=== PATIENT | female | born 1970 | race Caucasian/White ===

== ENCOUNTER 2022-03-31 19:17 | Emergency (ER) | payer OTHER, SELFPAY ==
[2022-03-31 19:20] VITALS: BP 154/91; PULSE 98; RESP 20; O2SAT 94; BMI 31.1
[2022-03-31 19:25] VITALS: BP 131/88; PULSE 91; RESP 22; TEMP 36.3; O2SAT 97
--- NOTE | 2022-03-31 20:03 | CTR_ITS ---
PROCEDURE INFORMATION: Exam: CT Head Without Contrast Exam date and time: 03/31/2022 8:33 PM Age: 52 years old Clinical indication: Injury or trauma; Fall; Blunt trauma (contusions or hematomas); Additional info: Fall hit head TECHNIQUE: Imaging protocol: Computed tomography of the head without contrast. Radiation optimization: All CT scans at this facility use at least one of these dose optimization techniques: automated exposure control; mA and/or kV adjustment per patient size (includes targeted exams where dose is matched to clinical indication); or iterative reconstruction. COMPARISON: MRI Cervical Spine w/o* [id number] 09/14/2015 12:56 PM RADIATION DOSE METRICS: Total DLP (mGy-cm): 913053 FINDINGS: Brain: Normal. No hemorrhage. Unremarkable white matter. No mass effect. Cerebral ventricles: No ventriculomegaly. Paranasal sinuses: A mucous retention cyst versus polyp in the right frontal sinus. Mastoid air cells: Visualized mastoid air cells are well aerated. Bones/joints: Unremarkable. No acute fracture. Soft tissues: Unremarkable. CT/CT head wo con* [id number] IMPRESSION: No acute intracranial findings.
--- NOTE | 2022-03-31 20:03 | CTR_ITS ---
PROCEDURE INFORMATION: Exam: CT Cervical Spine Without Contrast Exam date and time: 03/31/2022 8:39 PM Age: 52 years old Clinical indication: Injury or trauma; Fall; Blunt trauma; Additional info: Fell hit head TECHNIQUE: Imaging protocol: Computed tomography of the cervical spine without contrast. Radiation optimization: All CT scans at this facility use at least one of these dose optimization techniques: automated exposure control; mA and/or kV adjustment per patient size (includes targeted exams where dose is matched to clinical indication); or iterative reconstruction. COMPARISON: MRI Cervical Spine w/o* [id number] 09/14/2015 12:56 PM RADIATION DOSE METRICS: Total DLP (mGy-cm): 338.57 FINDINGS: Bones/joints: No acute fracture. Normal alignment. Discs/Spinal canal/Neural foramina: There are degenerative changes throughout the visualized spine including marginal osteophyte formations, endplate degenerative changes, and facet arthropathy. Multilevel disc space narrowing. There are multilevel broad-based disc osteophyte complexes which indent the anterior thecal sac and result in varying degrees of bilateral neuroforamina narrowing. Lungs: Lung apices are normal. Soft tissues: There are benign-appearing soft tissue calcifications. CT/CT cervical spin wo con* [id number] IMPRESSION: There are degenerative changes as described above. No evidence for acute fracture.
--- NOTE | 2022-03-31 20:34 | ED_ITS ---
HPI - Fall General: Chief Complaint: Fall Stated Complaint: FALL Time Seen by Provider: 03/31/22 19:28 Source: patient History of Present Illness: 52-year-old female who admits she is intoxicated, having about 12 beers today. She fell down some stairs at home, striking her head quite hard on a rock stairs family notes that after she did it, her eyes rolled back in her head, and she seemed to go out for a second although the patient denies any significant loss of consciousness. She does complain of a headache now. No language problems, weakness, vision problems MD complaint: fall Onset (ago): hour(s) Fall from: standing Fall witnessed: yes, by family Place fall occurred: home Loss of consciousness: None Prolonged down time: no Context: tripped/slipped and alcohol use Location of injury: head Severity: moderate Quality: dull Associated symptoms-after fall: Reports difficulty walking (Initially) and neck pain (Chronic); Denies abdominal pain, chest pain, numbness, short of breath or weakness Review of Systems Const: Denies: fever(s) Eyes: Denies: change in vision Card: Denies: chest pain Resp: Denies: dyspnea GI: Denies: abdominal pain Musc: Reports: neck pain (Chronic) Neuro: Reports: difficulty walking (Initially) Physical Exam Const: COMMON NORMALS: no acute distress GENERAL APPEARANCE: cooperative and well kempt; not frail appearing HENMT: COMMON NORMALS: normocephalic, atraumatic and Normal external nose present HEAD & SCALP: normocephalic and atraumatic FACE & SINUS: normal facial exam and face symmetric NOSE: Normal external nose present Eye: COMMON NORMALS: Equal, round and reactive pupils present and EOMs intact bilaterally PUPIL: Yes Equal, round and reactive pupils present Neck/C-Spine: GENERAL: Yes trachea midline CERVICAL SPINE: No Cervical spine tenderness Chest: CHEST: Yes Symmetrical chest wall rise and No tenderness Resp: COMMON NORMALS: normal respiratory effort, No use of accessory muscles and clear to auscultation bilaterally AUSCULTATION: clear to auscultation bilaterally Cardio: COMMON NORMALS: regular rate and regular rhythm RATE: regular rate RHYTHM: regular rhythm GI: COMMON NORMALS: Normal to inspection, nondistended, normoactive bowel sounds present, Soft to palpation and non-tender PALPATION: Yes Soft to palpation Neuro: DARRON COMA SCALE: document GCS findings [place] coma scale eye opening: Spontaneous Darron coma scale verbal response: Orientated [place] coma scale motor response: Obey commands [place] coma scale total score: 15 COORDINATION/BALANCE: [id number] test normal MOTOR EXAM: Pronator motor function not present COORDINATION: [id number] test normal Psych: APPEARANCE: Yes well kempt Course Vital Signs: Vital signs: Vital Signs Temperature 97.4 F L 03/31/22 19:25 Pulse Rate 85 03/31/22 21:54 Respiratory Rate 16 03/31/22 21:54 Blood Pressure 120/88 03/31/22 21:54 Pulse Oximetry 99 03/31/22 21:54 MDM - Fall Medical Decision Making CT performed due to intoxication. They are pending. I do not expect serious injury. CTs are negative. No change in clinical status. She will be discharged Lab Data Radiology Impressions Cervical Spine CT 03/31/22 20:03 IMPRESSION: There are degenerative changes as described above. No evidence for acute fracture. Head CT 03/31/22 20:03 IMPRESSION: No acute intracranial findings. Discharge Plan Discharge Patient Disposition: Home Clinical Impression: Concussion without loss of consciousness Condition: Stable Discharge Orders: Discharge ED (Routine); Ordered 03/31/22 Ordered By: Tad Alvarez Discharge Diet: Advance as tolerated Discharge Activity: Increase activity as tolerated Patient Instructions: Concussion (ED) Activity Restrictions/Additional Instructions: Return for worsening mental status, vomiting, weakness, worsening headache, any other concerning symptoms. Coding Level of Care Code ED Commissioning Engineer for Regino Ta Exam Comprehensive
[2022-03-31 21:25] VITALS: BP 120/88; PULSE 85; RESP 16; O2SAT 99
[2022-03-31 21:54] VITALS: BP 120/88; PULSE 85; RESP 16; O2SAT 99
== END 2022-03-31 21:54 | disposition home or self-care (01) ==
PROVIDERS: Emergency Provider Emergency Medicine
DX: S06.0X0A Concussion without loss of consciousness, initial encounter (principal); W18.09XA Striking against other object with subsequent fall, initial encounter; Y92.018 Other place in single-family (private) house as the place of occurrence of the external cause
CPT/HCPCS: 70450; 72125; 99283

== ENCOUNTER 2023-01-21 07:38 | Outpatient (CLI) | payer OTHER, SELFPAY ==
--- NOTE | 2023-01-21 07:48 | MM_ITS ---
WS: [id number] BILATERAL SCREENING DIGITAL TOMOSYNTHESIS MAMMOGRAM WITH CAD HISTORY: Breast CA screening COMPARISON: 11/07/2016 Bilateral CC and MLO views with tomosynthesis and synthetic mammography submitted. Computer aided det ection analyzed. Breast composition: There are scattered areas of fibroglandular density. No suspicious masses, microc alcifications or architectural distortion. Stable lymph node upper outer quadrant RIGHT breast. MM/[place] [id number] IMPRESSION: BI-RADS: 2-Benign FOLLOW UP: 1 Year Follow-up
== END 2023-01-21 07:39 | disposition home or self-care (01) ==
PROVIDERS: PCP Family Medicine; Visit Provider Family Medicine
DX: Z12.31 Encounter for screening mammogram for malignant neoplasm of breast (principal)
CPT/HCPCS: 77063; 77067; 80053; 80061; 84443; 85025

== ENCOUNTER 2023-01-31 14:20 | Emergency (ER) | payer OTHER, SELFPAY ==
--- NOTE | 2023-01-31 14:34 | ECG_ITS ---
[facility] Test Date: 2023-01-31 Pat Name: Evy Shaw Department: Room: Gender: Female Registrar Assistant: : 1970 Requested By: Kamaljit Monge Order Number: [id number] Richi MD: Emiliano Rocha M.D. Measurements Intervals [place] Rate: 101 P: 122 NV: 135 QRS: 37 QRSD: 92 T: 135 QT: 346 QTc: 448 Interpretive Statements SINUS TACHYCARDIA POSSIBLE LEFT ATRIAL ENLARGEMENT [-0.1mV P-WAVE IN V1/V2] LOW QRS VOLTAGE [QRS DEFLECTION < 0.5/1.0 mV IN LIMB/CHEST LEADS] MODERATE ST DEPRESSION [0.05+ mV ST DEPRESSION] ABNORMAL QRS-T ANGLE [QRS-T AXIS DIFFERENCE > 60] No previous ECG available for comparison Electronically Signed On 02-01-2023 11:59:29 CDT by Emiliano Rocha M.D. [id number]
[2023-01-31 14:49] VITALS: BP 150/82; PULSE 104; RESP 18; TEMP 36.8; O2SAT 99
--- NOTE | 2023-01-31 15:12 | XR_ITS ---
WS: [id number] Portable AP upright chest, 01/31/2023 Clinical Data: chest pain Comparison: None. Findings: No nodules, masses or effusions are seen. The heart is normal. The pulmonary vascularity is not increased. No pneumonia or pneumothorax is seen. Monitor leads are on the chest wall. XR/XR chest 1V portable [id number] Impression: Negative chest.
--- NOTE | 2023-01-31 15:16 | W.ED.CHESTPA ---
Documented by User: Kamaljit Coleman DO 01/31/23 19:46 HPI - Chest Pain General: Chief Complaint: Chest Pain Stated Complaint: chest pain Time Seen by Provider: 01/31/23 15:12 Source: patient Mode of arrival: ambulatory History of Present Illness: 52-year-old female presents emergency room complaining of chest pain that began while she was at rest. She has never had pain like this in the past. She has no known history of coronary disease pain radiates into her back and not associated with shortness of breath or diaphoresis. No radiation into the neck or arms. No nausea or vomiting. Patient does have a history of hypertension she is not diabetic. No previous cardiac work-ups. MD complaint: chest pain Pertinent past history: coronary artery disease Onset (ago): minute(s) Timing of current episode: episodic Onset: during rest Pain location: substernal and left chest Pain radiation: none Severity: mild Quality: tightness Relieving factors: nothing Exacerbating factors: nothing Associated symptoms: Deny abdominal pain, dyspnea, fever(s), nausea, palpitations or vomiting Review of Systems Const: Denies: fever(s), chills, body aches, change in appetite, fatigue or malaise ENMT: Denies: throat pain, ear or mastoid pain, nasal discharge or nasal congestion Card: Denies: chest pain, palpitations, edema, dyspnea on exertion or orthopnea Resp: Denies: dyspnea, productive cough or non-productive cough GI: Denies: abdominal pain, nausea, vomiting, hematemesis, coffee ground emesis, diarrhea, constipation, bloating, hematochezia or melena : Denies: flank pain, difficulty voiding, dysuria, urinary frequency or urinary urgency Musc: Denies: neck pain, back pain, extremity pain or extremity swelling Skin/Breast: Denies: rash or pruritus PFSH ED PFSH: Medical History (Updated 01/31/23 @ 19:24 by lAfred Arroyo MD) Hypertension Family History Father Congestive heart failure Mother Diabetes Hypertension Cancer Breast Social History Smoking and tobacco status: current every day smoker cigarettes Second hand smoke exposure: No Smoking risk assessment/counseling performed?: No Alcohol intake: current Alcohol intake frequency: few times a week Desire information about alcohol rehabilitation?: No Counseling given: No Substance/Drug Use: never Desire information about substance/drug rehabilitation?: No Counseling given: No Adopted: No Lives independently: Yes Household members: spouse Marital status: Number of children: 4 Number of grandchildren: 3 service: Yes Current occupational status: employed 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 Current occupational exposures/hazards: No Pets and animals: No Sexually active: Yes Do you think of yourself as: Straight/Heterosexual Current gender identity: Female Female Reproductive History: Spontaneous abortions: No Physical Exam Const: GENERAL APPEARANCE: cooperative and comfortable ORIENTATION/CONSCIOUSNESS: Yes awake, Yes oriented to person, Yes oriented to place and Yes oriented to time HENMT: COMMON NORMALS: normocephalic, atraumatic and hearing grossly normal bilaterally HEAD & SCALP: normocephalic and atraumatic Resp: COMMON NORMALS: normal respiratory effort, No retractions, No use of accessory muscles and clear to auscultation bilaterally AUSCULTATION: clear to auscultation bilaterally Cardio: COMMON NORMALS: regular rate, regular rhythm and No murmurs present (Cardio) RATE: regular rate RHYTHM: regular rhythm GI: COMMON NORMALS: Soft to palpation and No hepatosplenomegaly present AUSCULTATION: Yes normoactive bowel sounds PALPATION: Yes Soft to palpation, No Tenderness to palpation present (GI), No Guarding due to palpation present (GI) and Yes No hepatosplenomegaly present Extremity: COMMON NORMALS: normal to inspection, capillary refill normal, no clubbing, cyanosis or edema, no calf tenderness and no pedal edema Neuro: SENSORIUM/ORIENTATION: Yes oriented to person, Yes oriented to place and Yes oriented to time Skin: COMMON NORMALS: no rashes or lesions noted GENERAL SKIN EXAM: no rashes or lesions noted Course Vital Signs: Vital signs: Vital Signs Temperature 98.2 F 01/31/23 14:49 Pulse Rate 69 01/31/23 19:36 Respiratory Rate 18 01/31/23 19:36 Blood Pressure 121/60 01/31/23 17:43 Pulse Oximetry 96 01/31/23 19:36 Oxygen Delivery Me thod Room Air 01/31/23 18:22 MDM - Chest Pain Medical Decision Making Headache enzymes and EKG are negative. Reviewed findings the patient still complaining of severe pain. She describes as coming waves and spasms a CTA of the chest was done this was also negative. Patient discharged home. Was near change of shift Dr. Arroyo discharge patient home forming. See his final notes. Medical Records I reviewed the patient's medical records. Lab Data I reviewed the patient's lab results. 01/31/23 15:10 01/31/23 15:10 Radiology Impressions Chest X-Ray 01/31/23 15:12 Impression: Negative chest. Chest CTA 01/31/23 17:49 IMPRESSION: No PE or other acute finding. Laboratory Results WBC 8.8 10^3/uL (4.0-10.0) 01/31/23 15:10 RBC 4.37 10^6/uL (4.1-5.3) 01/31/23 15:10 Hgb 12.3 g/dL (11.5-15.3) 01/31/23 15:10 Hct 39.0 % (37.0-47.0) 01/31/23 15:10 MCV 89.2 fl (81-99) 01/31/23 15:10 MCH 28.1 pg (28.0-34.0) 01/31/23 15:10 MCHC 31.5 g/dL (30.0-36.0) 01/31/23 15:10 RDW 12.2 % (12.1-15.1) 01/31/23 15:10 Plt Count 303 10^3/cmm (130-400) 01/31/23 15:10 MPV 10.1 fL (7.4-10.4) 01/31/23 15:10 Neut % (Auto) 49.3 % 01/31/23 15:10 Lymph % (Auto) 42.3 % 01/31/23 15:10 Hooker % (Auto) 6.7 % 01/31/23 15:10 Eos % (Auto) 0.8 % 01/31/23 15:10 Baso % (Auto) 0.7 % 01/31/23 15:10 Neut # (Auto) 4.35 10^3/uL (1.8-7.7) 01/31/23 15:10 Lymph # (Auto) 3.7 10^3/uL (0.8-4.8) 01/31/23 15:10 [place] # (Auto) 0.6 10^3/uL (0.2-0.9) 01/31/23 15:10 Eos # (Auto) 0.1 10^3/uL (0.0-0.8) 01/31/23 15:10 Baso # (Auto) 0.1 10^3/uL (0.0-0.1) 01/31/23 15:10 Nucleated RBC % (auto) 0 % 01/31/23 15:10 Nucleated RBCs # 0.0 /100WBC 01/31/23 15:10 Sodium 138 mmol/L (136-145) 01/31/23 15:10 Potassium 3.5 mmol/L (3.5-5.1) 01/31/23 15:10 Chloride 97 mmol/L (98-107) L 01/31/23 15:10 Carbon Dioxide 23 mmol/L (22-29) 01/31/23 15:10 Anion Gap 21.5 (5-19) H 01/31/23 15:10 BUN 10 mg/dL (6-20) 01/31/23 15:10 Creatinine 0.9 mg/dL (0.5-0.9) 01/31/23 15:10 GFR Calculation 65.2 mL/min (90-130) L 01/31/23 15:10 Glucose 95 mg/dL (65-115) 01/31/23 15:10 Calculated Osmolality 285 mOsm/kg (285-295) 01/31/23 15:10 Calcium 9.7 mg/dL (8.5-10.5) 01/31/23 15:10 Total Bilirubin 0.3 mg/dL (0.15-1.2) 01/31/23 15:10 AST 19 U/L (0-32) 01/31/23 15:10 ALT 21 U/L (0-33) 01/31/23 15:10 Alkaline Phosphatase 94 U/L (35-105) 01/31/23 15:10 Creatine Kinase 74 U/L (26-192) 01/31/23 15:10 Troponin T Baseline 6 ng/L (0-10) 01/31/23 15:10 Troponin T 120 Minute 6.00 ng/L (0-10) 01/31/23 17:10 Delta Troponin T 0 ABS# (0-10) 01/31/23 17:10 Total Protein 7.4 g/dL (6.6-8.7) 01/31/23 15:10 Albumin 4.7 g/dL (3.5-5.2) 01/31/23 15:10 Globulin 2.7 g/dL (1.3-4.6) 01/31/23 15:10 Discharge Plan Discharge Patient Disposition: Home Clinical Impression: Chest pain Condition: Stable Prescriptions: No Action citalopram [Celexa] 40 mg tablet 40 mg PO QAM metoprolol tartrate 50 mg tablet 50 mg PO BID pantoprazole [Protonix] 40 mg tablet,delayed release (DR/EC) 40 mg PO QAM enalapril maleate 20 mg tablet 20 mg PO QAM nortriptyline 75 mg capsule 75 mg PO BID aspirin [Adult Low Dose Aspirin] 81 mg tablet,delayed release (DR/EC) 81 mg PO BEDTIME carisoprodol [Soma] 350 mg tablet 350 mg PO TID PRN (Reason: Muscle Spasm) promethazine 25 mg tablet 25 mg PO Q6H PRN (Reason: Nausea And Vomiting) hydroxyzine pamoate [Vistaril] 25 mg capsule 25 mg PO Q12H PRN (Reason: UNKNOWN) sucralfate [Carafate] 1 gram tablet 1 g PO TID PRN (Reason: UNKNOWN) hydrocodone-acetaminophen 10-325 mg tablet 1 tab PO DAILY PRN (Reason: pain) 30 Days Qty: 20 0RF clonazepam 1 mg tablet 1 mg PO BID PRN (Reason: Anxiety) flaxseed oil 1,000 mg Capsule 1,000 mg PO BEDTIME Calcium 500 500 mg calcium (1,250 mg) Tablet 500 mg PO BEDTIME albuterol sulfate 90 mcg/actuation Hfa Aerosol Inhaler 2 puff INHALATION QID PRN (Reason: Shortness Of Breath) Vitamin D3 25 mcg (1,000 unit) Capsule 25 mcg PO BEDTIME Nelson 3 Fish Oil 684-1,200 mg Capsule,Delayed Release(Dr/Ec) 1 cap PO BEDTIME Discharge Orders: Discharge ED (Routine); Ordered 01/31/23 Ordered By: Alfred Arroyo Referrals: Santiago Holman DO [Primary Care Provider] - 1-3 days Emiliano Rocha M.D [Physician] - 1-3 days Discharge Diet: Advance as tolerated Discharge Activity: Resume usual activity Patient Instructions: Chest Pain (ED) Coding Level of Care Code ED Optician Manager for Trishag Fwd Documented by User: Alfred Arroyo MD 01/31/23 19:47 HPI - Chest Pain General: Chief Complaint: Chest Pain Stated Complaint: chest pain Time Seen by Provider: 01/31/23 15:12 PFSH ED PFSH: Medical History (Updated 01/31/23 @ 19:24 by Alfred Arroyo MD) Hypertension Family History Father Congestive heart failure Mother Diabetes Hypertension Cancer Breast Social History Smoking and tobacco status: current every day smoker cigarettes Second hand smoke exposure: No Smoking risk assessment/counseling performed?: No Alcohol intake: current Alcohol intake frequency: few times a week Desire information about alcohol rehabilitation?: No Counseling given: No Substance/Drug Use: never Desire information about substance/drug rehabilitation?: No Counseling given: No Adopted: No Lives independently: Yes Household members: spouse Marital status: Number of children: 4 Number of grandchildren: 3 service: Yes Current occupational status: employed 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 Current occupational exposures/hazards: No Pets and animals: No Sexually active: Yes Do you think of yourself as: Straight/Heterosexual Current gender identity: Female Course Vital Signs: Vital signs: Vital Signs Temperature 98.2 F 01/31/23 14:49 Pulse Rate 69 01/31/23 19:36 Respiratory Rate 18 01/31/23 19:36 Blood Pressure 121/60 01/31/23 17:43 Pulse Oximetry 96 01/31/23 19:36 Oxygen Delivery Me thod Room Air 01/31/23 18:22 MDM - Chest Pain Medical Decision Making Patient presents here with chest pains atypical in nature troponins and CT angio here are normal she is pain-free currently she stable for discharge she is to follow-up with PCP or cardiology she does need an outpatient stress test she is to return if worsening she understands agrees to plan. Lab Data 01/31/23 15:10 01/31/23 15:10 Radiology Impressions Chest X-Ray 01/31/23 15:12 Impression: Negative chest. Chest CTA 01/31/23 17:49 IMPRESSION: No PE or other acute finding. Laboratory Results WBC 8.8 10^3/uL (4.0-10.0) 01/31/23 15:10 RBC 4.37 10^6/uL (4.1-5.3) 01/31/23 15:10 Hgb 12.3 g/dL (11.5-15.3) 01/31/23 15:10 Hct 39.0 % (37.0-47.0) 01/31/23 15:10 MCV 89.2 fl (81-99) 01/31/23 15:10 MCH 28.1 pg (28.0-34.0) 01/31/23 15:10 MCHC 31.5 g/dL (30.0-36.0) 01/31/23 15:10 RDW 12.2 % (12.1-15.1) 01/31/23 15:10 Plt Count 303 10^3/cmm (130-400) 01/31/23 15:10 MPV 10.1 fL (7.4-10.4) 01/31/23 15:10 Neut % (Auto) 49.3 % 01/31/23 15:10 Lymph % (Auto) 42.3 % 01/31/23 15:10 Hooker % (Auto) 6.7 % 01/31/23 15:10 Eos % (Auto) 0.8 % 01/31/23 15:10 Baso % (Auto) 0.7 % 01/31/23 15:10 Neut # (Auto) 4.35 10^3/uL (1.8-7.7) 01/31/23 15:10 Lymph # (Auto) 3.7 10^3/uL (0.8-4.8) 01/31/23 15:10 [place] # (Auto) 0.6 10^3/uL (0.2-0.9) 01/31/23 15:10 Eos # (Auto) 0.1 10^3/uL (0.0-0.8) 01/31/23 15:10 Baso # (Auto) 0.1 10^3/uL (0.0-0.1) 01/31/23 15:10 Nucleated RBC % (auto) 0 % 01/31/23 15:10 Nucleated RBCs # 0.0 /100WBC 01/31/23 15:10 Sodium 138 mmol/L (136-145) 01/31/23 15:10 Potassium 3.5 mmol/L (3.5-5.1) 01/31/23 15:10 Chloride 97 mmol/L (98-107) L 01/31/23 15:10 Carbon Dioxide 23 mmol/L (22-29) 01/31/23 15:10 Anion Gap 21.5 (5-19) H 01/31/23 15:10 BUN 10 mg/dL (6-20) 01/31/23 15:10 Creatinine 0.9 mg/dL (0.5-0.9) 01/31/23 15:10 GFR Calculation 65.2 mL/min (90-130) L 01/31/23 15:10 Glucose 95 mg/dL (65-115) 01/31/23 15:10 Calculated Osmolality 285 mOsm/kg (285-295) 01/31/23 15:10 Calcium 9.7 mg/dL (8.5-10.5) 01/31/23 15:10 Total Bilirubin 0.3 mg/dL (0.15-1.2) 01/31/23 15:10 AST 19 U/L (0-32) 01/31/23 15:10 ALT 21 U/L (0-33) 01/31/23 15:10 Alkaline Phosphatase 94 U/L (35-105) 01/31/23 15:10 Creatine Kinase 74 U/L (26-192) 01/31/23 15:10 Troponin T Baseline 6 ng/L (0-10) 01/31/23 15:10 Troponin T 120 Minute 6.00 ng/L (0-10) 01/31/23 17:10 Delta Troponin T 0 ABS# (0-10) 01/31/23 17:10 Total Protein 7.4 g/dL (6.6-8.7) 01/31/23 15:10 Albumin 4.7 g/dL (3.5-5.2) 01/31/23 15:10 Globulin 2.7 g/dL (1.3-4.6) 01/31/23 15:10 Discharge Plan Discharge Patient Disposition: Home Clinical Impression: Chest pain Condition: Stable Prescriptions: No Action citalopram [Celexa] 40 mg tablet 40 mg PO QAM metoprolol tartrate 50 mg tablet 50 mg PO BID pantoprazole [Protonix] 40 mg tablet,delayed release (DR/EC) 40 mg PO QAM enalapril maleate 20 mg tablet 20 mg PO QAM nortriptyline 75 mg capsule 75 mg PO BID aspirin [Adult Low Dose Aspirin] 81 mg tablet,delayed release (DR/EC) 81 mg PO BEDTIME carisoprodol [Soma] 350 mg tablet 350 mg PO TID PRN (Reason: Muscle Spasm) promethazine 25 mg tablet 25 mg PO Q6H PRN (Reason: Nausea And Vomiting) hydroxyzine pamoate [Vistaril] 25 mg capsule 25 mg PO Q12H PRN (Reason: UNKNOWN) sucralfate [Carafate] 1 gram tablet 1 g PO TID PRN (Reason: UNKNOWN) hydrocodone-acetaminophen 10-325 mg tablet 1 tab PO DAILY PRN (Reason: pain) 30 Days Qty: 20 0RF clonazepam 1 mg tablet 1 mg PO BID PRN (Reason: Anxiety) flaxseed oil 1,000 mg Capsule 1,000 mg PO BEDTIME Calcium 500 500 mg calcium (1,250 mg) Tablet 500 mg PO BEDTIME albuterol sulfate 90 mcg/actuation Hfa Aerosol Inhaler 2 puff INHALATION QID PRN (Reason: Shortness Of Breath) Vitamin D3 25 mcg (1,000 unit) Capsule 25 mcg PO BEDTIME Nelson 3 Fish Oil 684-1,200 mg Capsule,Delayed Release(Dr/Ec) 1 cap PO BEDTIME Discharge Orders: Discharge ED (Routine); Ordered 01/31/23 Ordered By: Alfred Arroyo Referrals: Santiago Holman DO [Primary Care Provider] - 1-3 days Emiliano Rocha M.D [Physician] - 1-3 days Discharge Diet: Advance as tolerated Discharge Activity: Resume usual activity Patient Instructions: Chest Pain (ED) Coding Level of Care Code ED Optician Manager for Regino Ta
[2023-01-31 15:30] LABS: Basophils # 0.1 10^3/uL (0.0-0.1); Basophils % 0.7 %; Eosinophils # 0.1 10^3/uL (0.0-0.8); Eosinophils % 0.8 %; Hemoglobin 12.3 g/dL (11.5-15.3); Lymphocytes # 3.7 10^3/uL (0.8-4.8); Lymphocytes % 42.3 %; Mean Corpuscular HGB Conc 31.5 g/dL (30.0-36.0); Mean Corpuscular Hemoglobin 28.1 pg (28.0-34.0); Mean Corpuscular Volume 89.2 fl (81-99); Mean Platelet Volume 10.1 fL (7.4-10.4); Monocytes # 0.6 10^3/uL (0.2-0.9); Monocytes % 6.7 %; Neutrophils # 4.35 10^3/uL (1.8-7.7); Neutrophils % 49.3 %; Nucleated Red Blood Cells % 0 %; Platelet Count 303 10^3/cmm (130-400); Red Blood Count 4.37 10^6/uL (4.1-5.3); Red Cell Distribution Width 12.2 % (12.1-15.1); White Blood Count 8.8 10^3/uL (4.0-10.0)
[2023-01-31] MEDS: aspirin 81 mg Chew Tablet 324 MG PO (15:38)
[2023-01-31 15:45] VITALS: BP 137/56; PULSE 96; RESP 18; O2SAT 98
[2023-01-31 15:57] LABS: Alanine Aminotransferase 21 U/L (0-33); Albumin Level 4.7 g/dL (3.5-5.2); Alkaline Phosphatase 94 U/L (35-105); Anion Gap 21.5 (5-19); Aspartate Amino Transferase 19 U/L (0-32); Blood Urea Nitrogen 10 mg/dL (6-20); Calcium 9.7 mg/dL (8.5-10.5); Carbon Dioxide 23 mmol/L (22-29); Chloride 97 mmol/L (98-107); Creatine Phosphokinase 74 U/L (26-192); Globulin 2.7 g/dL (1.3-4.6); Glomerular Filtration Rate 65.2 mL/min (90-130); Glucose 95 mg/dL (65-115); Osmolality Calculated 285 mOsm/kg (285-295); Potassium 3.5 mmol/L (3.5-5.1); Sodium 138 mmol/L (136-145); Total Bilirubin 0.3 mg/dL (0.15-1.2); Total Protein 7.4 g/dL (6.6-8.7)
[2023-01-31 15:58] LABS: Troponin(5th) Baseline 6 ng/L (0-10)
[2023-01-31] MEDS: ondansetron 2 mg/ML SDV 2 mL 4 MG IVP (16:31)
[2023-01-31] MEDS: morphine 4 mg/mL SDV 1 mL 2 MG IVP (16:31)
--- NOTE | 2023-01-31 17:00 | ECG_ITS ---
[facility] Test Date: 2023-01-31 Pat Name: Evy Shaw Department: Room: Gender: Female Assistant Inventory Manager: : 1970 Requested By: Kamaljit Monge Order Number: [id number] Richi MD: Emiliano Rocha M.D. Measurements Intervals [place] Rate: 90 P: 50 [place]: 135 QRS: 24 QRSD: 85 T: 51 QT: 365 QTc: 448 Interpretive Statements SINUS RHYTHM LOW QRS VOLTAGE IN PRECORDIAL LEADS [QRS DEFLECTION < 1.0 mV IN CHEST LEADS] NONSPECIFIC ST & T-WAVE ABNORMALITY Compared to ECG 01/31/2023 14:40:26 T-wave abnormality now present Sinus tachycardia no longer present ST (T wave) deviation no longer present Electronically Signed On 02-01-2023 12:01:47 CDT by Emiliano Rocha M.D. [id number]
[2023-01-31] MEDS: lidocaine 2% viscous 15 ML, aluminum-mag hydrox-simethicon 30 ML, sucralfate oral liq 1 GM PO (17:15)
[2023-01-31] MEDS: ketorolac 30 mg/mL INJ IVP (17:17)
[2023-01-31 17:41] LABS: Troponin 5 2HR Delta 0 ABS# (0-10)
[2023-01-31 17:43] VITALS: BP 121/60; PULSE 94; O2SAT 96
--- NOTE | 2023-01-31 17:49 | CTR_ITS ---
PROCEDURE INFORMATION: Exam: CTA Chest With Contrast Exam date and time: 01/31/2023 6:21 PM Age: 52 years old Clinical indication: Pain; Chest pressure; Additional info: Chest pain TECHNIQUE: Imaging protocol: Computed tomographic angiography of the chest with contrast. 3D rendering (Not supervised by radiologist): MIP and/or 3D reconstructed images were created by the technologist. Radiation optimization: All CT scans at this facility use at least one of these dose optimization techniques: automated exposure control; mA and/or kV adjustment per patient size (includes targeted exams where dose is matched to clinical indication); or iterative reconstruction. Contrast material: OMNI 350; Contrast volume: 100 ml; Contrast route: INTRAVENOUS (IV); REPORTING DATA: Count of CT and Cardiac NM exams in prior 12 months: This patient has received 2 known CTs and 0 known cardiac nuclear medicine studies in the 12 months prior to the current study. COMPARISON: CR XR chest 1V portable [id number] 01/31/2023 3:23 PM RADIATION DOSE METRICS: Total DLP (mGy-cm): 396 FINDINGS: Pulmonary arteries: No main, lobar, or segmental PE identified. Aorta: Unremarkable. No aortic aneurysm. No aortic dissection. Lungs: The lungs show no dominant mass or spiculated nodule. No focal consolidation is seen. Mild areas of bilateral mid to lower lung atelectasis or scarring. Pleural spaces: No pneumothorax. No pleural effusion noted. Heart: The heart is not enlarged. No pericardial effusion is noted. Lymph nodes: No bulky hilar or mediastinal lymphadenopathy noted. Bones/joints: Skeletal structures are age appropriate. No acute fracture is seen. Soft tissues: Unremarkable. Absent gallbladder. CT/CT angio chest PE protcl [id number] IMPRESSION: No PE or other acute finding.
[2023-01-31] MEDS: iohexol 350 mg/mL 500 mL Btl (per mL) IV (17:53)
[2023-01-31] MEDS: promethazine 25 mg/mL SDV 1 mL IM (18:02)
[2023-01-31] MEDS: morphine 4 mg/mL SDV 1 mL IVP (18:02)
[2023-01-31] MEDS: sodium chloride 0.9% 1,000 ML 999 ML IV (18:02)
[2023-01-31 18:22] VITALS: RESP 18; O2SAT 98
[2023-01-31 19:36] VITALS: PULSE 69; RESP 18; O2SAT 96
--- NOTE | 2023-02-01 12:01 | PC.NURSE ---
Addendum entered by Katherine Ruth 03/29/23 10:13: Patient had a follow up appointment scheduled with heart care - patient did attend appointment. Addendum entered by Katherine Ruth 02/05/23 13:39: Patient has a follow up appointment scheduled for Sunday, March 12, 2023 at 12:[address] Rocha at [facility]. Original Note: Patient seen in the ED on 01/31/23. Patient referred to Heart care by Dr. Arroyo. [facility] sent message to heart care clinic to call patient with an appt.
== END 2023-01-31 19:37 | disposition home or self-care (01) ==
PROVIDERS: Family Medicine; Emergency Provider Emergency Medicine; PCP Family Medicine
DX: R07.9 Chest pain, unspecified (principal); Z79.82 Long term (current) use of aspirin; I10 Essential (primary) hypertension; F17.210 Nicotine dependence, cigarettes, uncomplicated
CPT/HCPCS: 36415; 71045; 71275; 80053; 82550; 84484; 85025; 93005; 96372; 96374; 96375; 96376; 99285; J1885; J2270; J2405; J2550; J7030; Q9967

== ENCOUNTER → 2023-03-12 12:18 | Outpatient (BNVA) | payer OTHER, SELFPAY | PROVIDERS: PCP Family Medicine; Visit Provider Internal Medicine | DX: R07.9 Chest pain, unspecified (principal) | CPT/HCPCS: 93005 ==

== ENCOUNTER 2023-04-08 10:15 | Outpatient (CLI) | payer OTHER, SELFPAY ==
[2023-04-08 10:58] VITALS: BMI 33.5
--- NOTE | 2023-04-08 10:58 | ECG_ITS ---
[facility] Test Date: 2023-04-08 Pat Name: Evy Shaw Department: Room: Gender: Female User Interface Developer: Tina Negrete : 1970 Requested By: Emiliano Rocha Order Number: [id number] Richi MD: Sreedhar Henson M.D. Interpretive Statements NAME OF STUDY: LEXISCAN SESTAMIBI STRESS TEST INDICATION: Chest Pain, PROCEDURE: At the baseline, the EKG revealed sinus tachycardia with a rate of [address]-T changes. The baseline heart was 105 bpm with a blood pressue of 151/82 mm of Hg Lexiscan was infused over a period of 20 seconds. A total of 0.4 milligrams of Lexiscan was infused. The stress phase was continued for a total of 5 minutes. Heart rate at the end of the stress phase was 109 bpm with a blood pressure 140/70 mm of Hg. The EKG at the peak infusion revealed nonspecific ST-T changes. Sestamibi was injected 20 seconds after the Lexiscan infusion. Heart rate at the end of the recovery phase was 100 bpm with a blood pressure of 147/80 mm of Hg. CONCLUSION: 1. No significant EKG changes with the LexiScan infusion 2. No LexiScan induced chest pain or cardiac arrhythmia 3. Normal blood pressure and heart rate response 4. Sestamibi/sestamibi perfusion scan pending; see separate report. Electronically Signed On 04-09-2023 8:43:34 CDT by Sreedhar Henson M.D. [id number]
--- NOTE | 2023-04-08 10:59 | NMCV_ITS ---
NM lindsay perf SPECT r/s* [id number] Colin Evy Age: 53 Gender: F : 1970 Exam Date: 04/08/2023 11:43 Ordering Phys: Emiliano Rocha M.D ([email or web address]) Technologist: HEMAL Tapia Exam Location: [facility] Indications: CHEST PAIN STRESS TEST Please see separate stress test report in [facility] for full findings IMAGE PROTOCOL Rest/Stress 1 Lexiscan Day Radiopharmaceutical Dose (mCi) Administration Site Administered by Rest: Tc-99m 10.7 IV HEMAL Tapia Sestamibi Stress:Tc-99m 32.7 IV HEMAL Tapia Sestamibi Rest: 08-Apr-2023 60 Discovery 630 Stress: 08-Apr-2023 30 Discovery 630 0.4mg Lexiscan. Images obtained in supine and prone position. SPECT RESULTS Technical Quality: Excellent Raw Data Analysis: Normal Image Corrections: No attenuation or motion correction applied Summed Stress Score: 0 Summed Rest Score: 0 Summed Difference Score: 0 PERFUSION FINDINGS SPECT images demonstrate homogeneous tracer distribution throughout the myocardium. FUNCTIONAL RESULTS (calculated via Gated SPECT) Stress Image LV EF (%): 91 Stress EDV (mL):55 TID: 0.96 Stress ESV (mL):5 FUNCTIONAL FINDINGS: Segmental wall motion analysis revealing no gross wall motion abnormalities IMPRESSIONS 1. Myocardial perfusion imaging revealing fairly uniform myocardial tracer uptake with no significant perfusion abnormalities. 2. Normal LV ejection fraction of 91%. 3. LV wall motion analysis revealing no gross wall motion abnormalities. 4. Normal LV volume No similar previous studies are available for comparison Dr Sreedhar Henson MD FAC (Electronically Signed) Final Date: 08 April 2023 15:18 S
[2023-04-08] MEDS: regadenoson 0.4 Mg/5 ml Syringe IVP (12:11)
[2023-04-08] MEDS: aminophylline 25 mg/mL SDV 10 mL IVP (12:28)
[2023-04-08 12:38] VITALS: BP 147/80; PULSE 101
== END 2023-04-08 10:16 | disposition home or self-care (01) ==
LOC: CDL 10:16
PROVIDERS: PCP Family Medicine; Visit Provider Internal Medicine
DX: R07.9 Chest pain, unspecified (principal)
CPT/HCPCS: 36415; 78452; 93017; 96374; 96375; A9500; J0280; J2785

== ENCOUNTER → 2024-01-13 11:08 | Outpatient (BNVA) | payer OTHER, SELFPAY | PROVIDERS: PCP Family Medicine; Visit Provider Family Medicine | DX: R53.83 Other fatigue (principal) | CPT/HCPCS: 82728; 82785; 83550; 84439; 84443; 85651; 86001; 86003; 86038; 86140; 86200; 86235; 86431 ==

== ENCOUNTER 2024-02-02 14:45 | Emergency (ER) | payer OTHER, SELFPAY ==
[2024-02-02 14:52] VITALS: BP 131/62; PULSE 106; RESP 22; TEMP 36.9; O2SAT 96; BMI 32.9
--- NOTE | 2024-02-02 15:03 | ED_ITS ---
HPI - Neck Pain/Injury 2 General: Chief Complaint: Neck Pain/Injury Stated Complaint: neck, chest and, right arm pain, tingling in legs Time Seen by Provider: 02/02/24 14:57 History of Present Illness: 53-year-old female comes in today for co mplaints of neck discomfort with numbness radiating down her right arm. Patient endorses chronic neck problems with vertebral disc degeneration. Patient states that they had spent the night at a hotel last night in [place] for a beauty pageant. During the night they were awakened by a fire alarm. Patient did not sleep well last night. Today patient was having some increased pain that exacerbated during lunch. Patient appears nontoxic. Patient appears in moderate to severe pain. Review of Systems 2 General: Reports: 10 or more systems reviewed and unremarkable except in HPI and below Musc: Reports: neck pain Neuro: Reports: numbness in extremities [facility] ED 2 PFSH: Medical History (Updated 02/02/24 @ 16:42 by KAROL Sam) Tobacco use disorder Chronic neck pain GERD without esophagitis Anxiety and depression Hypertension Surgical History (Updated 01/13/24 @ 10:37 by Shaggy Kline MD) History of hysterectomy Hx of appendectomy History of cholecystectomy Family History Father Congestive heart failure (CHF) Mother Diabetes Hypertension Cancer Breast Social History (Updated 01/13/24 @ 10:04 by Bridget Lewis MA) Smoking and tobacco/nicotine status: current every day tobacco/nicotine user cigarettes Packs smoked per day: 0.25 Quit status (tobacco/nicotine): considering quitting Second hand smoke exposure: No Alcohol intake: current Alcohol intake frequency: few times a week Substance/Drug Use: never Adopted: No Lives independently: Yes Household members: spouse Marital status: Number of children: 4 Number of grandchildren: 3 service: Yes branch: [place] Current occupational status: employed 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 [employer] Current occupational exposures/hazards: No Pets and animals: No Sexually active: Yes Do you think of yourself as: Straight/Heterosexual Current gender identity: Female Female Reproductive History: Spontaneous abortions: No Physical Exam 2 Const: COMMON NORMALS: alert HENMT: COMMON NORMALS: normocephalic HEAD & SCALP: normocephalic Neck/C-Spine: CERVICAL SPINE: Yes Paracervical muscle tenderness Chest: COMMONS NORMALS: normal inspection of the chest Resp: COMMON NORMALS: normal respiratory effort and clear to auscultation bilaterally AUSCULTATION: clear to auscultation bilaterally Cardio: COMMON NORMALS: regular rate and regular rhythm RATE: regular rate RHYTHM: regular rhythm GI: COMMON NORMALS: non-tender Extremity: COMMON NORMALS: normal to inspection NARRATIVE EXTREMITY EXAM: Reports numbness to the right upper arm. Decreased range of motion due to pain in the right upper arm. Neuro: SENSORIUM/ORIENTATION: Yes alert Skin: COMMON NORMALS: turgor normal GENERAL SKIN EXAM: turgor normal Course 2 Vital Signs: Vital signs: Vital Signs Temperature 98.4 F 02/02/24 14:52 Pulse Rate 88 02/02/24 18:00 Respiratory Rate 22 H 02/02/24 14:52 Blood Pressure 109/50 02/02/24 18:00 Pulse Oximetry 94 02/02/24 18:00 Oxygen Delivery Me thod Room Air 02/02/24 18:00 MDM - Neck Pain/Injury Medical Decision Making 53-year-old female comes in today with complaints of neck pain with numbness into the right upper arm. On exam patient has decreased range of motion of the right upper arm due to pain. Distal pulses are intact. Patient reports numbness distally. Patient does endorse anxiety may be worsening her distress. Patient appears in moderate to severe pain. Respirations are even. Lungs are clear to auscultation. Vital signs are normal except for some elevated pulse and respirations. Differential diagnosis includes but not limited to cervical radiculopathy, muscle strain, anxiety disorder, ACS, neuropathy. CT noted no significant changes from prior exam. Patient does have foraminal stenosis but did not know to as critical . Patient was given some fentanyl, dexamethasone, and Ativan for her pain and muscle spasms. Patient was discharged home with recommendations for follow-up with orthopedic spine for further evaluation and consideration of treatment options. Patient stated understanding and agreed to plan. Lab Data 02/02/24 15:16 02/02/24 15:16 Radiology Impressions Cervical Spine CT 02/02/24 16:07 IMPRESSION: Mild multilevel spondylosis and degenerative disc disease, as described above. Laboratory Results WBC 13.26 10^3/uL (3.29-11.43) H 02/02/24 15:16 RBC 4.23 10^6/uL (3.85-5.65) 02/02/24 15:16 Hgb 12.00 g/dL (11.27-16.99) 02/02/24 15:16 Hct 38.0 % (36-47) 02/02/24 15:16 MCV 89.8 fl (85-98) 02/02/24 15:16 MCH 28.4 pg (27-33) 02/02/24 15:16 MCHC 31.6 g/dL (30-55) 02/02/24 15:16 RDW 12.3 % (12.1-15.1) 02/02/24 15:16 Plt Count 343 10^3/cmm (157-399) 02/02/24 15:16 MPV 10.1 fL (7.4-10.4) 02/02/24 15:16 Neut % (Auto) 60.0 % 02/02/24 15:16 Lymph % (Auto) 29.4 % 02/02/24 15:16 [place] % (Auto) 7.1 % 02/02/24 15:16 Eos % (Auto) 2.3 % 02/02/24 15:16 Baso % (Auto) 0.8 % 02/02/24 15:16 Neut # (Auto) 7.96 10^3/uL (1.8-7.7) H 02/02/24 15:16 Lymph # (Auto) 3.9 10^3/uL (0.8-4.8) 02/02/24 15:16 [place] # (Auto) 0.9 10^3/uL (0.2-0.9) 02/02/24 15:16 Eos # (Auto) 0.3 10^3/uL (0.0-0.8) 02/02/24 15:16 Baso # (Auto) 0.1 10^3/uL (0.0-0.1) 02/02/24 15:16 Nucleated RBC % (auto) 0 % 02/02/24 15:16 Nucleated RBCs # 0.0 /100WBC 02/02/24 15:16 Sodium 141 mmol/L (136-145) 02/02/24 15:16 Potassium 3.4 mmol/L (3.5-5.1) L 02/02/24 15:16 Chloride 103 mmol/L (98-107) 02/02/24 15:16 Carbon Dioxide 23 mmol/L (22-29) 02/02/24 15:16 Anion Gap 18.4 (5-19) 02/02/24 15:16 BUN 9 mg/dL (6-20) 02/02/24 15:16 Creatinine 1.3 mg/dL (0.5-0.9) H 02/02/24 15:16 GFR Calculation 42.5 mL/min (90-130) L 02/02/24 15:16 Glucose 120 mg/dL (65-115) H 02/02/24 15:16 Calculated Osmolality 292 mOsm/kg (285-295) 02/02/24 15:16 Calcium 9.5 mg/dL (8.5-10.5) 02/02/24 15:16 Total Bilirubin 0.2 mg/dL (0.15-1.2) 02/02/24 15:16 AST 19 U/L (0-32) 02/02/24 15:16 ALT 19 U/L (0-33) 02/02/24 15:16 Alkaline Phosphatase 113 U/L (35-105) H 02/02/24 15:16 Troponin T Baseline < 6 ng/L (0-10) 02/02/24 15:16 Total Protein 7.2 g/dL (6.6-8.7) 02/02/24 15:16 Albumin 4.4 g/dL (3.5-5.2) 02/02/24 15:16 Globulin 2.8 g/dL (1.3-4.6) 02/02/24 15:16 Ethyl Alcohol 144 mg/dL (0-10) H 02/02/24 15:16 All radiology interpretation(s) finalized by discharge EKG Data EKG 1: EKG interpretation date: 02/02/24 EKG interpretation time: 15:30 Prior EKG tracings: not available for review Interpretation: EKG shows a sinus rhythm with a regular rate at 102 bpm. Mild artifact is present. No ST elevation is noted. No prior exam was available for comparison. No other ectopy is noted. Computer generated interpretation: Sinus tachycardia, nonspecific ST and T wave abnormality, abnormal rhythm EKG, unconfirmed report. Discharge Plan Discharge Patient Disposition: Home Clinical Impression: Cervical radiculopathy Condition: Stable Prescriptions: New prednisone 20 mg tablet 20 mg PO BID 5 Days Qty: 10 0RF promethazine 12.5 mg tablet 12.5 mg PO Q6H PRN (Reason: nausea and vomiting) Qty: 10 0RF Rx Instructions: 3 doses during day; last dose no later than 4 hr before bedtime No Action sucralfate [Carafate] 1 gram tablet 1 g PO BID Qty: 120 1RF Rx Instructions: BID x 6 weeks, then PRN nortriptyline 50 mg capsule 50 mg PO BID Qty: 60 1RF gabapentin 300 mg capsule 300 mg PO BID Qty: 60 1RF hydrocodone-acetaminophen 10-325 mg tablet 1 tab PO DAILY PRN (Reason: pain) 30 Days Qty: 20 0RF metoprolol tartrate 50 mg tablet 50 mg PO BID pantoprazole [Protonix] 40 mg tablet,delayed release (DR/EC) 40 mg PO QAM enalapril maleate 20 mg tablet 20 mg PO QAM aspirin [Adult Low Dose Aspirin] 81 mg tablet,delayed release (DR/EC) 81 mg PO BEDTIME promethazine 25 mg tablet 25 mg PO Q6H PRN (Reason: Nausea And Vomiting) nitroglycerin [Nitrostat] 0.4 mg tablet, sublingual 0.4 mg sublingual Q5M PRN (Reason: chest pain) Qty: 30 0RF Rx Instructions: do not exceed 3 doses per episode duloxetine 60 mg capsule,delayed release(DR/EC) 60 mg PO DAILY Qty: 90 2RF hydrochlorothiazide 25 mg tablet 25 mg PO DAILY Qty: 30 0RF clonazepam 1 mg tablet 1 mg PO DAILY PRN (Reason: Anxiety) Qty: 30 0RF Rx Instructions: Covering for Dr. Kline carisoprodol [Soma] 350 mg tablet 350 mg PO TID PRN (Reason: Muscle Spasm) Qty: 60 2RF Rx Instructions: Covering for Dr. Kline flaxseed oil 1,000 mg Capsule 1,000 mg PO BEDTIME Calcium 500 500 mg calcium (1,250 mg) Tablet 500 mg PO BEDTIME albuterol sulfate 90 mcg/actuation Hfa Aerosol Inhaler 2 puff INHALATION QID PRN (Reason: Shortness Of Breath) Vitamin D3 25 mcg (1,000 unit) Capsule 25 mcg PO BEDTIME Epsom 3 Fish Oil 684-1,200 mg Capsule,Delayed Release(Dr/Ec) 1 cap PO BEDTIME Discharge Orders: Discharge ED (Routine); Ordered 02/02/24 Ordered By: Eric Randolph Referrals: Shaggy Kline MD [Primary Care Provider] - Discharge Diet: Usual diet Discharge Activity: Increase activity as tolerated Patient Instructions: Cervical Radiculopathy (ED) Activity Restrictions/Additional Instructions: Activity as tolerated. Drink plenty of water and fluids. You have been given medications that have narcotics and benzodiazepines which causes muscle laxation. I would wait 6 hours before taking any of your home medications that provide similar results as this may cause overdosing and decreased respirations. Follow-up with primary care for recheck and refills of medication. Take prednisone for inflammation. Use the promethazine as needed for your nausea. Return to ER for new concerns. Coding Level of Care Code ED Aerial Sprayer for Regino Ta
--- NOTE | 2024-02-02 15:24 | ECG_ITS ---
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 Measurements Intervals [place] Rate: 102 P: 52 RI: 136 QRS: 1 QRSD: 93 T: 54 QT: 337 QTc: 440 Interpretive Statements SINUS TACHYCARDIA NONSPECIFIC ST & T-WAVE ABNORMALITY ABNORMAL RHYTHM ECG Compared to ECG 03/12/2023 12:24:42 T-wave abnormality now present Sinus rhythm no longer present Electronically Signed On 02-02-2024 22:29:03 CDT by Sreedhar Henson M.D. [id number]
[2024-02-02] MEDS: LORazepam 2 mg/mL INJ 10 mL MDV 1 MG IVP (15:29)
[2024-02-02] MEDS: ketorolac 30 mg/mL INJ 15 MG IVP (15:31)
[2024-02-02] MEDS: fentaNYL 50 mcg/mL INJ 2mL IVP ×2 (15:34→18:04)
[2024-02-02 15:39] LABS: Basophils # 0.1 10^3/uL (0.0-0.1); Basophils % 0.8 %; Eosinophils # 0.3 10^3/uL (0.0-0.8); Eosinophils % 2.3 %; Lymphocytes # 3.9 10^3/uL (0.8-4.8); Lymphocytes % 29.4 %; Mean Corpuscular HGB Conc 31.6 g/dL (30-55); Mean Corpuscular Hemoglobin 28.4 pg (27-33); Mean Corpuscular Volume 89.8 fl (85-98); Mean Platelet Volume 10.1 fL (7.4-10.4); Monocytes # 0.9 10^3/uL (0.2-0.9); Monocytes % 7.1 %; Neutrophils # 7.96 10^3/uL (1.8-7.7); Nucleated Red Blood Cells % 0 %; Platelet Count 343 10^3/cmm (157-399); Red Blood Count 4.23 10^6/uL (3.85-5.65); Red Cell Distribution Width 12.3 % (12.1-15.1); White Blood Count 13.26 10^3/uL (3.29-11.43)
[2024-02-02 15:40] VITALS: BP 131/54; PULSE 95; O2SAT 93
[2024-02-02 15:59] LABS: Troponin(5th) Baseline < 6 ng/L (0-10)
[2024-02-02 16:02] LABS: Alanine Aminotransferase 19 U/L (0-33); Albumin Level 4.4 g/dL (3.5-5.2); Alcohol Level 144 mg/dL (0-10); Alkaline Phosphatase 113 U/L (35-105); Anion Gap 18.4 (5-19); Aspartate Amino Transferase 19 U/L (0-32); Blood Urea Nitrogen 9 mg/dL (6-20); Calcium 9.5 mg/dL (8.5-10.5); Carbon Dioxide 23 mmol/L (22-29); Chloride 103 mmol/L (98-107); Globulin 2.8 g/dL (1.3-4.6); Glomerular Filtration Rate 42.5 mL/min (90-130); Glucose 120 mg/dL (65-115); Osmolality Calculated 292 mOsm/kg (285-295); Potassium 3.4 mmol/L (3.5-5.1); Sodium 141 mmol/L (136-145); Total Bilirubin 0.2 mg/dL (0.15-1.2); Total Protein 7.2 g/dL (6.6-8.7)
[2024-02-02 16:04] LABS: Creatinine Clr Calc Pharmacy 48.4127
--- NOTE | 2024-02-02 16:07 | CTR_ITS ---
PROCEDURE INFORMATION: Exam: CT Cervical Spine Without Contrast Exam date and time: 02/02/2024 4:26 PM Age: 53 years old Clinical indication: Neck pain and radicular pain (radiculopathy); Cervical region; Additional info: Cervical radiculopathy TECHNIQUE: Imaging protocol: Computed tomography of the cervical spine without contrast. Axial, coronal and sagittal reformatted images were created and reviewed. Radiation optimization: All CT scans at this facility use at least one of these dose optimization techniques: automated exposure control; mA and/or kV adjustment per patient size (includes targeted exams where dose is matched to clinical indication); or iterative reconstruction. COMPARISON: CT cervical spin wo con* [id number] 03/31/2022 8:39 PM RADIATION DOSE METRICS: Total DLP (mGy-cm): 238.47 FINDINGS: Bones: Osteopenia. Straightening of the normal cervical lordosis. No CT evidence of acute fracture, dislocation or subluxation. Alignment anatomic. Vertebral body heights maintained. Mild multilevel degenerative changes, characterized by disc space narrowing, osteophytosis and uncovertebral and facet joint hypertrophy. Mild multilevel spinal canal and neural foraminal narrowing without critical stenosis. Lungs: Lung apices are normal. Soft tissues: Grossly unremarkable. CT/CT cervical spin wo con* [id number] IMPRESSION: Mild multilevel spondylosis and degenerative disc disease, as described above.
--- NOTE | 2024-02-02 16:13 | DCPLANNER ---
Sent followup request to ortho clinic 02/02/24 @[id number]
[2024-02-02 16:30] VITALS: BP 143/99; PULSE 95; O2SAT 95
[2024-02-02] MEDS: ondansetron 2 mg/ML SDV 2 mL 4 MG IVP (16:57)
[2024-02-02] MEDS: dexamethasone 10 mg/mL INJ IVP (17:00)
[2024-02-02 17:30] VITALS: PULSE 98; O2SAT 93
[2024-02-02 18:00] VITALS: BP 109/50; PULSE 88; O2SAT 94
[2024-02-02 19:02] VITALS: BP 96/56; PULSE 100; O2SAT 94
== END 2024-02-02 19:00 | disposition home or self-care (01) ==
PROVIDERS: Emergency Provider Nurse Practitioner Family; PCP Family Medicine
DX: M54.12 Radiculopathy, cervical region (principal); Z79.82 Long term (current) use of aspirin; I10 Essential (primary) hypertension; F17.210 Nicotine dependence, cigarettes, uncomplicated
CPT/HCPCS: 36415; 72125; 80053; 80307; 84484; 85025; 93005; 96374; 96375; 96376; 99285; J1100; J1885; J2060; J2405; J3010

== ENCOUNTER → 2024-02-04 09:21 | Outpatient (BNVA) | payer OTHER, SELFPAY | PROVIDERS: PCP Family Medicine; Visit Provider Orthopaedic Surgery | DX: M54.12 Radiculopathy, cervical region (principal) | CPT/HCPCS: 72050 ==

== ENCOUNTER 2024-03-02 13:38 | Outpatient (CLI) | payer OTHER, SELFPAY | END 2024-03-02 13:39 | disposition home or self-care (01) | LOC: LAB 13:40 | PROVIDERS: PCP Family Medicine; Visit Provider Family Medicine | DX: W57.XXXA Bitten or stung by nonvenomous insect and other nonvenomous arthropods, initial encounter (principal) | CPT/HCPCS: 36415; 80061; 86003; 86008 ==

== ENCOUNTER 2024-03-02 14:58 | Outpatient (RCR) | payer OTHER, SELFPAY | END 2024-03-22 23:59 | disposition home or self-care (01) | LOC: SPT 14:58 | PROVIDERS: PCP Family Medicine; Visit Provider Orthopaedic Surgery | DX: M54.9 Dorsalgia, unspecified (principal); G89.29 Other chronic pain | CPT/HCPCS: 97012; 97110; 97140; 97161; G0283 ==

== ENCOUNTER 2024-03-18 06:55 | Outpatient (CLI) | payer OTHER, SELFPAY ==
--- NOTE | 2024-03-18 07:15 | MR_ITS ---
WS: [id number] MRI CERVICAL SPINE NONCONTRAST HISTORY: neck pain, LEFT radiculopathy. COMPARISON: 09/14/2015 Technique: Multiplanar, multisequence noncontrast imaging of the cervical spine. Straightening of the normal cervical lordosis. Minimal progression of central stenosis since 2014. Signal within the cervical cord is normal. Visualized posterior fossa is unremarkable. Craniocervical junction, C1 and C2 relationship, odontoid process and soft tissues are normal. C2-C3: Mild facet joint arthritis, mild synovitis on the RIGHT. No high-grade stenosis. C3-C4: Mild osteophytic ridging with a shallow central disc protrusion. Bilateral moderate facet arth ritis. Mild central and bilateral foraminal stenosis, RIGHT greater than LEFT. C4-C5: Osteophytic ridging and annular disc bulging. Moderate facet arthritis. Mild central and bilat eral foraminal stenosis. C5-C6: Osteophytic ridging with a central disc protrusion. Moderate facet joint arthritis. Moderate c entral with bilateral foraminal stenosis. Disc osteophyte complexes contributing to the stenosis. C6-C7: Mild annular disc bulging with facet joint arthritis and osteophytic ridging. Moderate to carolann re central and bilateral foraminal stenosis. C7-T1: Diffuse osteophytic ridging with a moderate central disc protrusion. Facet joint arthritis is mild. Moderate central with mild bilateral foraminal stenosis. Paraspinal soft tissue are normal. MR/MR cervical spin wo con* [id number] IMPRESSION: 1. Mild progression of central stenosis and facet joint arthritis since 2014. Progression of osteophyte and facet disease. 2. C6-7: Moderate to severe central with bilateral foraminal stenosis. Stenosi s due to disc and osteophyte and facet disease. 3. C5-6: Moderate central and bilateral foraminal stenosis. 4. C3-4 and C4-5: Mild central and bilateral foraminal stenosis. 5. C7-T1 moderate central with mild bilateral foraminal stenosis.
== END 2024-03-18 06:56 | disposition home or self-care (01) ==
PROVIDERS: PCP Family Medicine; Visit Provider Orthopaedic Surgery
DX: M54.12 Radiculopathy, cervical region (principal); M25.78 Osteophyte, vertebrae; M47.892 Other spondylosis, cervical region; M50.20 Other cervical disc displacement, unspecified cervical region; M99.61 Osseous and subluxation stenosis of intervertebral foramina of cervical region; M99.62 Osseous and subluxation stenosis of intervertebral foramina of thoracic region
CPT/HCPCS: 72141

== ENCOUNTER → 2024-03-19 17:01 | Outpatient (BNVA) | payer OTHER, SELFPAY | PROVIDERS: PCP Family Medicine; Visit Provider Orthopaedic Surgery | DX: M54.2 Cervicalgia (principal); M47.22 Other spondylosis with radiculopathy, cervical region | CPT/HCPCS: 80053; 81003; 85025 ==

== ENCOUNTER 2024-04-29 16:40 | Outpatient (CLI) | payer OTHER, SELFPAY ==
[2024-03-02 07:01] LABS: Chol HDL Ratio 4.81 mg/dL (0.0-4.40); Cholesterol 207 mg/dL (0-200); HDL Cholesterol 43 mg/dL (60-100); LDL Cholesterol Calculated 124 mg/dL (50-129); LDL HDL Ratio 2.88 RATIO (0.00-3.22); Triglycerides 200 mg/dL (0-150)
[2024-03-04 19:12] LABS: Beef (27) IgE <0.10 kU/L; Beef Class 0; Lamb (F88) IgE <0.10 kU/L; Lamb Class 0; Pork (F26) IgE <0.10 kU/L; Pork Class 0
[2024-03-12 23:39] LABS: Galactose-alpha-1,3 IgE <0.10 kU/L (<0.10)
== END 2024-04-29 16:41 | disposition home or self-care (01) ==
LOC: SLEEP 16:43
PROVIDERS: PCP Family Medicine; Visit Provider Family Medicine
DX: G47.33 Obstructive sleep apnea (adult) (pediatric)
CPT/HCPCS: G0399

== ENCOUNTER 2024-05-04 05:40 | Day surgery (SDC) | payer OTHER, SELFPAY ==
[2024-05-04] VITALS (10 sets, daily range): BP systolic 108–137; BP diastolic 65–90; PULSE 74–95; RESP 12–18; TEMP 36.1–36.6; O2SAT 93–100; BMI 32.3
--- NOTE | 2024-05-04 05:49 | SC_ITS ---
WS: [id number] Examination: C-arm Fluoroscopy [id number] Reason for Exam: Surgery Date: May 04, 2024 3 intraoperative images of been obtained with 22.9 seconds of fluoroscopy. The dap is 0.63408 mGy/sq m. Images demonstrate anterior plate and screw fixation at C5-C7. Limited visualization suggests alignme nt is satisfactory. Please see intraoperative note for full explanation of findings and the procedure.
[2024-05-04] MEDS: sodium chloride 0.9% 1,000 ML 30 ML IV (06:11)
--- NOTE | 2024-05-04 06:35 | W.PM.OPSUD ---
Surgery/Procedure H&P Update DATE OF PROCEDURE: May 04, 2024 DATE H&P PERFORMED: 04/20/24 H&P UPDATE INFORMATION: I have reviewed H&P completed within last 30 days, I have examined patient prior to procedure and No changes to prior documentation PLANNED PROCEDURE: Operation Date: 05/04/24 07:00 Proposed Procedures p Anterior Cervical Discectomy & Fusion ACDF w/ Anterior Interbody Fusion w/ Cage w/ Instrumentation w/ Allograft w/ Navigation(Not Applicable) - Leonidas Maria DO
[2024-05-04 07:03] LABS: Anion Gap 16.6 (5-19); Blood Urea Nitrogen 11 mg/dL (6-20); Calcium 9.2 mg/dL (8.5-10.5); Carbon Dioxide 26 mmol/L (22-29); Chloride 101 mmol/L (98-107); Glomerular Filtration Rate 64.8 mL/min (90-130); Glucose 107 mg/dL (65-115); Osmolality Calculated 290 mOsm/kg (285-295); Potassium 3.6 mmol/L (3.5-5.1); Sodium 140 mmol/L (136-145)
--- NOTE | 2024-05-04 07:14 | P.ANESASSM_ITS ---
Pre-Anesthetic Assessment Height/Weight: Height 1.57 m Weight 80.286 kg Temp Pulse Resp BP Pulse Ox O2 Del Method 97 F L 75 18 133/70 100 Room Air 05/04/24 06:24 05/04/24 06:24 05/04/24 06:24 05/04/24 06:24 05/04/24 06:24 05/04/24 06:35 Operation Date: 05/04/24 07:00 Proposed Procedures p Anterior Cervical Discectomy & Fusion ACDF w/ Anterior Interbody Fusion w/ Cage w/ Instrumentation w/ Allograft w/ Navigation(Not Applicable) - Leonidas Maria, DO Familial anesthetic complications: none Was Beta Prabhjot taken within 24 hours: N/A Was Clonidine taken within 24 hours: N/A Last intake: Intake Last Liquid Date 05/03/24 Last Liquid Time 22:00 Last Solid Date 05/03/24 Last Solid Time 17:00 Social Tobacco and No alcohol Exam alert, oriented x 3, clear to auscultation bilaterally and regular rate & rhythm Airway Mallampati: Class II Dentition: full CV/HEM Hypertension Negative stress test, no recent CP GI Gastroesophageal Reflux Disease Neuropsych RLS Anesthetic Plan ASA status: 3 Anesthesia: General Risk of > 500 ml blood loss (7ml/kg in children): No Medications/Allergies Home Medications Medication Instructions Recorded Confirmed Last Taken Type aspirin 81 mg tablet,delayed 81 mg PO BEDTIME 12/25/22 05/01/24 04/25/24 History release (Adult Low Dose Aspirin) enalapril maleate 20 mg tablet 20 mg PO QAM 12/25/22 05/04/24 05/01/24 History metoprolol tartrate 50 mg tablet 50 mg PO BID 12/25/22 05/04/24 05/01/24 History albuterol sulfate 90 mcg/actuation 2 puff inhalation QID PRN 01/31/23 05/01/24 Unknown History aerosol inhaler Shortness Of Breath calcium carbonate 500 mg PO BEDTIME 01/31/23 05/01/24 05/03/24 History flaxseed oil 1,000 mg capsule 1,000 mg PO BEDTIME 01/31/23 05/04/24 05/01/24 History omega-3 fatty acids-fish oil 684 1 cap PO BEDTIME 01/31/23 05/04/24 05/01/24 History mg-1,200 mg capsule,delayed release carisoprodol 350 mg tablet (Soma) 350 mg PO TID PRN Muscle Spasm #60 01/27/24 05/04/24 05/01/24 Rx tabs clonazepam 1 mg tablet 1 mg PO DAILY PRN Anxiety #30 tabs 01/27/24 05/04/24 05/01/24 Rx promethazine 12.5 mg tablet 12.5 mg PO Q6H PRN nausea and 02/24/24 05/04/24 05/01/24 Rx vomiting #60 tabs duloxetine 60 mg capsule,delayed 60 mg PO DAILY #30 caps 03/04/24 05/04/24 05/01/24 Rx release hydrocodone 10 mg-acetaminophen 1 tab PO Q8H PRN pain 7 days #21 03/19/24 05/04/24 05/01/24 Rx 325 mg tablet tabs pantoprazole 40 mg tablet,delayed 40 mg PO BID #60 tabs 03/25/24 05/04/24 05/01/24 Rx release (Protonix) cyclobenzaprine 10 mg tablet 10 mg PO TID PRN muscle spasm 30 04/16/24 05/04/24 05/01/24 Rx days #90 tabs cetirizine 10 mg tablet (Zyrtec) 10 mg PO DAILY #90 tabs 04/20/24 05/04/24 05/01/24 Rx gabapentin 300 mg capsule 300 mg PO BID #120 caps 04/20/24 05/04/24 05/01/24 Rx hydrochlorothiazide 25 mg tablet 25 mg PO DAILY #90 tabs 04/20/24 05/04/24 05/01/24 Rx ropinirole 0.5 mg tablet 0.5 mg PO DAILY #90 tabs 04/20/24 05/04/24 05/01/24 Rx Allergies Allergy/AdvReac Type Severity Reaction Status Date / Time No Known Allergies Allergy Verified 05/01/24 11:05 Current Medications Generic Name Dose Route Start Last Admin Trade Name Freq PRN Reason Stop Dose Admin Sodium Chloride 1,000 mls @ 30 mls/hr 05/04/24 06:00 05/04/24 06:11 Sodium Chloride 0.9% IV 05/05/24 05:59 30 mls/hr .Q24H SAVITA Administration PFSH Anesthesia Medical History Tobacco use disorder Chronic neck pain GERD without esophagitis Anxiety and depression Hypertension Surgical History History of hysterectomy Hx of appendectomy History of cholecystectomy Family History Father Congestive heart failure (CHF) Mother Diabetes Hypertension Cancer Breast Social History Smoking and tobacco/nicotine status: current every day tobacco/nicotine user cigarettes Packs smoked per day: 0.25 Quit status (tobacco/nicotine): considering quitting Second hand smoke exposure: No Alcohol intake: current Alcohol intake frequency: few times a week Substance/Drug Use: never Adopted: No Lives independently: Yes Household members: spouse Marital status: Number of children: 4 Number of grandchildren: 3 service: Yes branch: [employer] Current occupational status: employed 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
[2024-05-04] MEDS: ceFAZolin 2,000 mg SDV 2000 MG IVP (07:28)
[2024-05-04] MEDS: lidocaine-epi 1% 20 mL INJ INJECTION (07:56)
--- NOTE | 2024-05-04 09:15 | PM.OP ---
Operative Report Date of procedure: May 04, 2024 Pre-op diagnosis: Cervical spondylosis with radiculopathy Post-op diagnosis: same Procedure done: 1. Anterior diskectomy C5/6 2. Anterior discectomy C6/7 3. Insertion of cage C5/6 4. Insertion of Cage C6/7 5. Instrumentation with anterior plate from C5-C7 6. Use of allograft Surgeon: Leonidas Maria DO Estimated blood loss (mL): 10 Procedure: 1. Anterior diskectomy C5/6 2. Anterior discectomy C6/7 3. Insertion of cage C5/6 4. Insertion of Cage C6/7 5. Instrumentation with anterior plate from C5-C7 6. Use of allograft The patient was taken to the operating room, where he underwent general endotracheal anesthesia without complications. He was then positioned supine on the operating table, and all areas of impingement were well padded. The arms were carefully padded and tucked at his sides. A roll was placed between the shoulder blades.. An x-ray was done to determine the appropriate level for the skin incision. The entire neck was then sterilely prepped and draped in the usual fashion. Neuromonitoring was attached prior to prepping. A transverse skin incision was made and carried down to the platysma muscle. This was then split in line with its fibers. Blunt dissection was carried down medial to the carotid sheath and lateral to the trachea and esophagus until the anterior cervical spine was visualized. A needle was placed into a disc and an x-ray was done to determine its location. The longus colli muscles were then elevated bilaterally with the electrocautery unit. Self-retaining retractors were placed deep to the longus colli muscle. Attention was brought to the C5-6 level that was confirmed on x-ray. A caspar pin was placed into the C5 vertebrae and the C6 vertebrae. The disk space was then distracted. The microscope was then brought in. A radical anterior discectomies were performed at C5/6. This included complete removal of the anterior annulus, nucleus, and posterior annulus. The posterior longitudinal ligament was removed as were the posterior osteophytes. Foraminotomies were then accomplished bilaterally. This was done using a high speed sumeet, kerrison rongeurs and curretes Once all of this was accomplished, the curved currette was used to check for any residual compression. The central canal was wide open as were the foramen. A high-speed bur was used to remove the cartilaginous endplates above and below the interspace. Bleeding cancellous bone was exposed. The disc space were measured and appropriate size cage were placed sterilely onto the field. Allograft graft was packed into the cages. The cage was then placed and there was good juxtaposition against the bleeding decorticated surfaces and good distraction of each interspace. Attention was brought to the next interspace. The Stollings pins were removed. Bone wax was used to prevent any bleeding from occurring at the pin sites. Attention was brought to the C6-7 level that was confirmed on x-ray. A caspar pin was placed into the C6 vertebrae and the C7 vertebrae. The disk space was then distracted. The microscope was then brought in. A radical anterior discectomies were performed at C6/7. This included complete removal of the anterior annulus, nucleus, and posterior annulus. The posterior longitudinal ligament was removed as were the posterior osteophytes. Foraminotomies were then accomplished bilaterally. This was done using a high speed sumeet, kerrison rongeurs and curretes Once all of this was accomplished, the curved currette was used to check for any residual compression. The central canal was wide open as were the foramen. A high-speed bur was used to remove the cartilaginous endplates above and below the interspace. Bleeding cancellous bone was exposed. The disc space were measured and appropriate size cage were placed sterilely onto the field. Allograft graft was packed into the cages. The cage was then placed and there was good juxtaposition against the bleeding decorticated surfaces and good distraction of each interspace. The Stollings pins were removed. Bone wax was used to prevent any bleeding from occurring at the pin sites. The appropriate size anterior cervical locking plate was chosen and bent into gentle lordosis. Two screws were then placed into each of the vertebral bodies at C5, C6 and C7. There was excellent purchase. A final x-ray was done confirming good position of the hardware and Cages. The locking screws were then applied, also with excellent purchase. Following a final copious irrigation, there was good hemostasis and no dural leaks. The carotid pulse was strong. The wounds were then closed in layers using 2-0 Vicryl suture for the platysma muscle, 2-0 Vicryl suture for the subcutaneous tissue, and 4-0 monocryl suture in a subcuticular skin closure. Glue was placed followed by application of a sterile dressing. The drain was hooked to bulb suction. A soft collar was applied. The patient was then carefully returned to the supine position on his hospital bed where he was reversed and extubated and taken to the recovery room having tolerated the procedure well.
[2024-05-04] MEDS: ondansetron 2 mg/ML SDV 2 mL 4 MG IVP (09:47)
[2024-05-04] MEDS: HYDROcodone-acetaminophen 10-325 mg Tablet 1 TAB PO (10:12)
[2024-05-04] MEDS: promethazine 25 mg Tablet PO (10:21)
--- NOTE | 2024-05-04 10:30 | ANE.PACU2 ---
Inpatient post-anesthesia follow up: Airway intact: Yes Vital signs: Temperature 98 F Pulse Rate 79 Respiratory Rate 18 Blood Pressure 137/90 Pulse Oximetry 98 Oxygen Delivery Me thod Room Air Oxygen Flow Rate 8 Fraction of Inspir ed Oxygen Hydration adequate: Yes Nausea and vomiting: No Pain level: 1 Mental status: Baseline
--- NOTE | 2024-05-04 10:36 | PC.NURSE ---
PIID removed from right inner arm. bruising noted and small amount of swelling noted.
--- NOTE | 2024-05-04 14:24 | XR_ITS ---
WS: [id number] Examination: C-arm Fluoroscopy [id number] Reason for Exam: Surgery Date: May 04, 2024 3 intraoperative images of been obtained with 22.9 seconds of fluoroscopy. The dap is 0.44506 mGy/sq m. Images demonstrate anterior plate and screw fixation at C5-C7. Limited visualization suggests alignme nt is satisfactory. Please see intraoperative note for full explanation of findings and the procedure.
== END 2024-05-04 10:31 | disposition home or self-care (01) ==
PROVIDERS: Anesthesiology; PCP Family Medicine; Visit Provider Orthopaedic Surgery
PROC: 0RB30ZZ Excision of Cervical Vertebral Disc, Open Approach (ICD-10-PCS; CPT 22551; principal; 2024-05-04 07:00)
DX: M47.22 Other spondylosis with radiculopathy, cervical region (principal); I10 Essential (primary) hypertension; K21.9 Gastro-esophageal reflux disease without esophagitis; Z79.82 Long term (current) use of aspirin; F17.210 Nicotine dependence, cigarettes, uncomplicated
CPT/HCPCS: 20930; 22551; 22552; 22845; 22853 ×2; 36415; 72040; 76000; 80048; C1713; C1763; C9359; J0131; J0330; J0690; J1100; J1170; J2250; J2371; J2405; J2704; J3010; J3490; J7030; Q0169

== ENCOUNTER → 2024-06-16 08:03 | Outpatient (BNVA) | payer OTHER, SELFPAY | PROVIDERS: PCP Family Medicine; Visit Provider Orthopaedic Surgery | DX: Z98.1 Arthrodesis status (principal) | CPT/HCPCS: 72040 ==

== ENCOUNTER → 2024-07-23 07:43 | Outpatient (BNVA) | payer OTHER, SELFPAY | PROVIDERS: PCP Family Medicine; Visit Provider Orthopaedic Surgery | DX: Z98.1 Arthrodesis status (principal) | CPT/HCPCS: 72040 ==

== ENCOUNTER 2024-09-07 21:41 | Emergency (ER) | payer OTHER, SELFPAY ==
[2024-09-07] VITALS (19 sets, daily range): BP systolic 137–161; BP diastolic 58–97; PULSE 76–102; RESP 9–24; TEMP 36.8; O2SAT 92–100
--- NOTE | 2024-09-07 21:43 | ECG_ITS ---
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 Measurements Intervals [place] Rate: 102 P: 51 IN: 156 QRS: 9 QRSD: 89 T: 28 QT: 345 QTc: 449 Interpretive Statements SINUS TACHYCARDIA LOW QRS VOLTAGE IN PRECORDIAL LEADS [QRS DEFLECTION < 1.0 mV IN CHEST LEADS] MINIMAL ST DEPRESSION [0.025+ mV ST DEPRESSION] Compared to ECG 02/02/2024 15:24:55 Low QRS voltage now present ST (T wave) deviation now present T-wave abnormality no longer present Electronically Signed On 09-08-2024 15:10:56 UNIT SUPPORT REPRESENTATIVE by Emiliano Rocha M.D. [email or web address]
--- NOTE | 2024-09-07 21:43 | XRR_ITS ---
PROCEDURE INFORMATION: Exam: XR Chest Exam date and time: 09/07/2024 9:55 PM Age: 54 years old Clinical indication: Pain; Chest pressure; Additional info: Cp TECHNIQUE: Imaging protocol: Radiologic exam of the chest. Views: 1 view. COMPARISON: CT angio chest PE protcl [id number] 01/31/2023 6:21 PM FINDINGS: Lungs: Unremarkable. No consolidation. Pleural spaces: Unremarkable. No pleural effusion. No pneumothorax. Heart/Mediastinum: Unremarkable. No cardiomegaly. Bones/joints: Unremarkable. XR/XR chest 1V portable [id number] IMPRESSION: No acute findings.
[2024-09-07 22:14] LABS: Basophils # 0.1 10^3/uL (0.0-0.1); Basophils % 0.5 %; Eosinophils # 0.1 10^3/uL (0.0-0.8); Eosinophils % 1.2 %; Hematocrit 36.7 % (36-47); Lymphocytes # 4.9 10^3/uL (0.8-4.8); Lymphocytes % 48.4 %; Mean Corpuscular HGB Conc 32.4 g/dL (30-55); Mean Corpuscular Hemoglobin 27.7 pg (27-33); Mean Corpuscular Volume 85.5 fl (85-98); Mean Platelet Volume 9.6 fL (7.4-10.4); Monocytes # 0.8 10^3/uL (0.2-0.9); Monocytes % 7.4 %; Neutrophils # 4.26 10^3/uL (1.8-7.7); Neutrophils % 42.3 %; Nucleated Red Blood Cells % 0 %; Platelet Count 346 10^3/cmm (157-399); Red Blood Count 4.29 10^6/uL (3.85-5.65); Red Cell Distribution Width 12.8 % (12.1-15.1); White Blood Count 10.07 10^3/uL (3.29-11.43)
--- NOTE | 2024-09-07 22:17 | W.ED.CHESTPA ---
HPI - Chest Pain General: Chief Complaint: Chest Pain Stated Complaint: Chest Pain Time Seen by Provider: 09/07/24 22:08 History of Present Illness: 54-year-old female with history of anxiety, obstructive sleep apnea, tobacco use, hypertension who presents the emergency room with chest pain. She says started yesterday but had gotten better and then started again today while she was at work. She thought it was anxiety and she took a Klonopin this evening at home which did not help. She is having some pain into her right arm and into her neck and jaw. She thought maybe it was associated with her chronic neck problems so she took a pain pill and that did not help. She had some nitro. She has never had a heart attack but had chest pain in the past and was given some nitro. She took 3 of those and they helped some. Says pain had gone away and now it is coming back again. She says she is also been stressed about her mother passing away last week. No cough. No abdominal pain. No altered mental status. No fevers. Related Data Home Medications Medication Instructions Recorded Confirmed aspirin 81 mg tablet,delayed 81 mg PO BEDTIME 12/25/22 07/23/24 release (Adult Low Dose Aspirin) enalapril maleate 20 mg tablet 20 mg PO QAM 12/25/22 07/23/24 albuterol sulfate 90 mcg/actuation 2 puff inhalation QID PRN 01/31/23 07/23/24 aerosol inhaler Shortness Of Breath calcium carbonate 500 mg PO BEDTIME 01/31/23 07/23/24 flaxseed oil 1,000 mg capsule 1,000 mg PO BEDTIME 01/31/23 07/23/24 omega-3 fatty acids-fish oil 684 1 cap PO BEDTIME 01/31/23 07/23/24 mg-1,200 mg capsule,delayed release Previous Rx's Medication Instructions Recorded promethazine 12.5 mg tablet 12.5 mg PO Q6H PRN nausea and 02/24/24 vomiting #60 tabs cetirizine 10 mg tablet (Zyrtec) 10 mg PO DAILY #90 tabs 04/20/24 gabapentin 300 mg capsule 300 mg PO BID #120 caps 04/20/24 hydrochlorothiazide 25 mg tablet 25 mg PO DAILY #90 tabs 04/20/24 ropinirole 0.5 mg tablet 0.5 mg PO DAILY #90 tabs 04/20/24 CPAP 6-16cm mmHg setting #1 ea 05/06/24 CPAP mask, tubing, supplies #1 ea 05/06/24 duloxetine 60 mg capsule,delayed 60 mg PO DAILY #90 caps 06/10/24 release cyclobenzaprine 10 mg tablet 10 mg PO TID PRN muscle spasm 30 06/16/24 days #90 tabs carisoprodol 350 mg tablet (Soma) 350 mg PO TID PRN Muscle Spasm #60 07/02/24 tabs metoprolol tartrate 50 mg tablet 50 mg PO BID #180 tabs 07/21/24 pantoprazole 40 mg tablet,delayed 40 mg PO BID #60 tabs 07/21/24 release (Protonix) cyclobenzaprine 5 mg tablet 5 mg PO TID #21 tabs 07/23/24 hydrocodone 10 mg-acetaminophen 1 tab PO Q8H PRN pain 7 days #21 07/23/24 325 mg tablet tabs prednisone 20 mg tablet 20 mg PO DAILY #15 tabs 07/23/24 clonazepam 1 mg tablet 1 mg PO DAILY PRN Anxiety #30 tabs 08/31/24 Allergies Allergy/AdvReac Type Severity Reaction Status Date / Time No Known Allergies Allergy Verified 09/07/24 21:51 Review of Systems Narrative: Constitutional symptoms: Negative except as documented in HPI. Skin symptoms: Negative except as documented in HPI. Eye symptoms: Negative except as documented in HPI. ENMT symptoms: Negative except as documented in HPI. Respiratory symptoms: Negative except as documented in HPI. Cardiovascular symptoms: Negative except as documented in HPI. Gastrointestinal symptoms: Negative except as documented in HPI. Genitourinary symptoms: Negative except as documented in HPI. Musculoskeletal symptoms: Negative except as documented in HPI. Neurologic symptoms: Negative except as documented in HPI. Psychiatric symptoms: Negative except as documented in HPI. Endocrine symptoms: Negative except as documented in HPI. PFSH ED PFSH: Medical History MARITZA (obstructive sleep apnea) Tobacco use disorder Chronic neck pain GERD without esophagitis Anxiety and depression Hypertension Surgical History History of hysterectomy Hx of appendectomy History of cholecystectomy Family History Father Congestive heart failure (CHF) Mother Diabetes Hypertension Cancer Breast Social History Smoking and tobacco/nicotine status: never used tobacco/nicotine Quit status (tobacco/nicotine): considering quitting Second hand smoke exposure: No Alcohol intake: current Alcohol intake frequency: few times a week Substance/Drug Use: never Adopted: No Lives independently: Yes Household members: spouse Marital status: Number of children: 4 Number of grandchildren: 3 service: Yes branch: [employer] Current occupational status: employed 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 Skin: Warm, dry. Head: Normocephalic, atraumatic. Neck: Supple, trachea midline. Eye: Extraocular movements are intact. Ears, nose, mouth and throat: mucosa moist. Cardiovascular: Regular, Normal peripheral perfusion. Respiratory: Lungs are clear to auscultation, respirations are non-labored, breath sounds are equal, Symmetrical chest wall expansion. Gastrointestinal: Soft, Nontender, Non distended Musculoskeletal: Normal ROM, no deformity. Neurological: Alert and oriented, No focal neurological deficit observed. Psychiatric: Cooperative, appropriate mood & affect. Course Vital Signs: Vital signs: Vital Signs Temperature 98.2 F 09/07/24 21:48 Pulse Rate 81 09/07/24 23:45 Respiratory Rate 15 09/07/24 23:45 Blood Pressure 161/87 09/07/24 23:45 Pulse Oximetry 95 09/07/24 23:45 Oxygen Delivery Me thod Room Air 09/07/24 22:55 MDM - Chest Pain Medical Decision Making Differential diagnosis for patient with chest pain includes but is not limited to and based on the above HPI, review of systems and physical exam: Pneumonia. unstable angina. angina. Acute coronary syndrome / MA. Pulmonary embolism. Costochondritis / musculoskeletal. Pleurisy. Pericarditis. Esophageal spasm. Pancreatis. Cholecystitis. Orders placed to evaluate differential diagnosis based on the above differential, HPI and physical exam EKG: Time 2143. Rate 102. Sinus tachycardia. No ST-T changes, no ectopy, normal MA & QRS intervals, This was reviewed and interpreted by myself the ER physician at 2145. Repeat EKG: Time 12:14 AM. Rate 74. Normal sinus rhythm, No ST-T changes, no ectopy, normal MA & QRS intervals, This was reviewed and interpreted by myself the ER physician at 12:20 AM. Heart rate has decreased significantly from previous EKG but no other changes. Chest x-ray: No acute process. No infiltrate. No pneumothorax. This was reviewed and interpreted by myself the emergency room physician. I also reviewed the radiology report. Lab Review: Laboratory results were reviewed and interpreted by myself the emergency room physician. Lab work is unremarkable. No leukocytosis. No anemia. No renal failure. Serial troponins are negative. HEART Pathway for Early Discharge in Acute Chest Pain from [employer] on 09/08/2024 All calculations should be rechecked by clinician prior to use RESULT SUMMARY: 2 points HEART Pathway Score Low risk 0.9-1.7% 30-day MACE Repeat troponin at 2 hours and if negative, discharge home with outpatient follow-up. INPUTS: History ?> 0 = Slightly suspicious EKG ?> 0 = Normal Age ?> 1 = 45-64 Risk factors ?> 1 = 1-2 risk factors Initial troponin ?> 0 = <=ormal limit I reviewed the patient's medical record. Reexamination: Patient remained stable. No increased work of breathing. No altered mental status. No focal motor deficits. Ativan seems to have helped quite a bit. She request another dose prior to going home. Assessment and plan: Noncardiac chest pain Anxiety ?Morphine and Zofran helped some. Then Ativan. - Discharged home - Discussed findings and plan with patient. Answered any questions. - All laboratory values were reviewed and interpreted personally by myself, the ER physician - All imaging was reviewed and interpreted personally by myself, the ER physician. - Evaluation and treatment of this problem were appropriate in the emergency setting Lab Data 09/07/24 22:04 09/07/24 22:04 Radiology Impressions Chest X-Ray 09/07/24 21:43 IMPRESSION: No acute findings. Laboratory Results WBC 10.07 10^3/uL (3.29-11.43) 09/07/24 22:04 RBC 4.29 10^6/uL (3.85-5.65) 12/16/24 22:04 Hgb 11.90 g/dL (11.27-16.99) 09/07/24 22:04 Hct 36.7 % (36-47) 09/07/24 22:04 MCV 85.5 fl (85-98) 09/07/24 22:04 MCH 27.7 pg (27-33) 09/07/24 22:04 MCHC 32.4 g/dL (30-55) 09/07/24 22:04 RDW 12.8 % (12.1-15.1) 09/07/24 22:04 Plt Count 346 10^3/cmm (157-399) 09/07/24 22:04 MPV 9.6 fL (7.4-10.4) 09/07/24 22:04 Neut % (Auto) 42.3 % 09/07/24 22:04 Lymph % (Auto) 48.4 % 09/07/24 22:04 Mcmullen % (Auto) 7.4 % 09/07/24 22:04 Eos % (Auto) 1.2 % 09/07/24 22:04 Baso % (Auto) 0.5 % 09/07/24 22:04 Neut # (Auto) 4.26 10^3/uL (1.8-7.7) 09/07/24 22:04 Lymph # (Auto) 4.9 10^3/uL (0.8-4.8) H 09/07/24 22:04 Mcmullen # (Auto) 0.8 10^3/uL (0.2-0.9) 09/07/24 22:04 Eos # (Auto) 0.1 10^3/uL (0.0-0.8) 09/07/24 22:04 Baso # (Auto) 0.1 10^3/uL (0.0-0.1) 09/07/24 22:04 Nucleated RBC % (auto) 0 % 09/07/24 22: Nucleated RBCs # 0.0 /100WBC 09/07/24 22:04 Sodium 142 mmol/L (136-145) 09/07/24 22:04 Potassium 3.4 mmol/L (3.5-5.1) L 09/07/24 22:04 Chloride 100 mmol/L (98-107) 09/07/24 22:04 Carbon Dioxide 30 mmol/L (22-29) H 09/07/24 22:04 Anion Gap 15.4 (5-19) 09/07/24 22:04 BUN 13 mg/dL (6-20) 09/07/24 22:04 Creatinine 1.0 mg/dL (0.5-0.9) H 09/07/24 22:04 GFR Calculation 57.4 mL/min (90-130) L 09/07/24 22:04 Glucose 118 mg/dL (65-115) H 09/07/24 22:04 Calculated Osmolality 295 mOsm/kg (285-295) 09/07/24 22:04 Calcium 9.9 mg/dL (8.5-10.5) 09/07/24 22:04 Total Bilirubin 0.2 mg/dL (0.15-1.2) 09/07/24 22:04 AST 21 U/L (0-32) 09/07/24 22:04 ALT 23 U/L (0-33) 09/07/24 22:04 Alkaline Phosphatase 112 U/L (35-105) H 09/07/24 22:04 Troponin T Baseline 8 ng/L (0-10) 09/07/24 22:04 Troponin T 120 Minute 6.90 ng/L (0-10) 09/08/24 00:00 Delta Troponin T -1.10 ABS# (0-10) L 09/08/24 00:00 NT-Pro-B Natriuret Pep < 36 pg/mL (0-125) 09/07/24 22:04 Total Protein 7.0 g/dL (6.6-8.7) 09/07/24 22:04 Albumin 4.5 g/dL (3.5-5.2) 09/07/24 22:04 Globulin 2.5 g/dL (1.3-4.6) 09/07/24 22:04 Lipase 36 U/L (13-60) 09/07/24 22:04 All radiology interpretation(s) finalized by discharge Discharge Plan Discharge Patient Disposition: Home Clinical Impression: Non-cardiac chest pain Condition: Stable Prescriptions: No Action promethazine 12.5 mg tablet 12.5 mg PO Q6H PRN (Reason: nausea and vomiting) Qty: 60 0RF cyclobenzaprine 10 mg tablet 10 mg PO TID PRN (Reason: muscle spasm) 30 Days Qty: 90 0RF prednisone 20 mg tablet 20 mg PO DAILY Qty: 15 0RF Rx Instructions: 60MG for 3 days 40MG for 2 days 20MG for 2 days hydrocodone-acetaminophen 10-325 mg tablet 1 tab PO Q8H PRN (Reason: pain) 7 Days Qty: 21 0RF cyclobenzaprine 5 mg tablet 5 mg PO TID Qty: 21 0RF enalapril maleate 20 mg tablet 20 mg PO QAM aspirin [Adult Low Dose Aspirin] 81 mg tablet,delayed release (DR/EC) 81 mg PO BEDTIME cetirizine [Zyrtec] 10 mg tablet 10 mg PO DAILY Qty: 90 1RF gabapentin 300 mg capsule 300 mg PO BID Qty: 120 1RF hydrochlorothiazide 25 mg tablet 25 mg PO DAILY Qty: 90 1RF ropinirole 0.5 mg tablet 0.5 mg PO DAILY Qty: 90 1RF (DME) CPAP 6-16cm mmHg setting See Rx Instructions .ROUTE .MEDSUPPLY Qty: 1 0RF Rx Instructions: As directed (DME) CPAP mask, tubing, supplies See Rx Instructions .ROUTE .MEDSUPPLY Qty: 1 1RF Rx Instructions: As directed duloxetine 60 mg capsule,delayed release(DR/EC) 60 mg PO DAILY Qty: 90 0RF carisoprodol [Soma] 350 mg tablet 350 mg PO TID PRN (Reason: Muscle Spasm) Qty: 60 2RF Rx Instructions: Covering for Dr. Kline pantoprazole [Protonix] 40 mg tablet,delayed release (DR/EC) 40 mg PO BID Qty: 60 1RF metoprolol tartrate 50 mg tablet 50 mg PO BID Qty: 180 0RF clonazepam 1 mg tablet 1 mg PO DAILY PRN (Reason: Anxiety) Qty: 30 0RF flaxseed oil 1,000 mg Capsule 1,000 mg PO BEDTIME calcium carbonate 500 mg calcium (1,250 mg) Tablet 500 mg PO BEDTIME albuterol sulfate 90 mcg/actuation Hfa Aerosol Inhaler 2 puff INHALATION QID PRN (Reason: Shortness Of Breath) omega-3 fatty acids-fish oil 684-1,200 mg Capsule,Delayed Release(Dr/Ec) 1 cap PO BEDTIME Discharge Orders: Discharge ED (Routine); Ordered 09/08/24 Ordered By: María Avelar Referrals: Shaggy Kline MD [Primary Care Provider] - Discharge Diet: Usual diet Discharge Activity: Increase activity as tolerated Patient Instructions: Noncardiac Chest Pain (ED), Opioid Safety, Pain Management Activity Restrictions/Additional Instructions: Thank you for choosing [facility] for your healthcare needs today. Please realize this is an emergency room and that we are providing you with a medical screening exam and this may not be complete and all inclusive of all the testing and or work up that you may need to determine your ailment or severity of your illness. You have been screened and evaluated and felt safe for discharge. Health conditions do change or evolve sometimes and as such it is important that you follow up with your Primary Doctor to be re checked, 3-5 days is a general good time frame for follow up. You are always welcome to return to the ED for re assessment if your symptoms are worsening or you have new concerns Coding Level of Care Code ED Monitor [employer] Bin Tender for Regino Ta
[2024-09-07 22:31] LABS: Troponin(5th) Baseline 8 ng/L (0-10)
[2024-09-07 22:34] LABS: Alanine Aminotransferase 23 U/L (0-33); Albumin Level 4.5 g/dL (3.5-5.2); Alkaline Phosphatase 112 U/L (35-105); Anion Gap 15.4 (5-19); Aspartate Amino Transferase 21 U/L (0-32); Blood Urea Nitrogen 13 mg/dL (6-20); Calcium 9.9 mg/dL (8.5-10.5); Carbon Dioxide 30 mmol/L (22-29); Chloride 100 mmol/L (98-107); Creatinine Clr Calc Pharmacy 60.3969; Globulin 2.5 g/dL (1.3-4.6); Glomerular Filtration Rate 57.4 mL/min (90-130); Glucose 118 mg/dL (65-115); Lipase 36 U/L (13-60); Osmolality Calculated 295 mOsm/kg (285-295); Potassium 3.4 mmol/L (3.5-5.1); Sodium 142 mmol/L (136-145); Total Bilirubin 0.2 mg/dL (0.15-1.2)
[2024-09-07] MEDS: ondansetron 2 mg/ML SDV 2 mL 4 MG IVP (22:42)
[2024-09-07] MEDS: morphine 4 mg/mL SDV 1 mL IVP (22:47)
[2024-09-07 23:26] LABS: NT Pro B Type Natriuretic Pept < 36 pg/mL (0-125)
--- NOTE | 2024-09-07 23:43 | ECG_ITS ---
[facility] Date: 2024-09-08 Pat Name: Evy Shaw Department: Room: Gender: Female C D Still Operator: : 1970 Requested By: Alfred Arroyo Order Number: [id number] Richi MD: Emiliano Rocha M.D. Measurements Intervals [place] Rate: 74 P: 48 ME: 155 QRS: 4 QRSD: 89 T: 27 QT: 379 QTc: 423 Interpretive Statements SINUS RHYTHM LOW QRS VOLTAGE IN PRECORDIAL LEADS [QRS DEFLECTION < 1.0 mV IN CHEST LEADS] NONSPECIFIC T-WAVE ABNORMALITY Compared to ECG 09/07/2024 21:43:28 T-wave abnormality now present Sinus tachycardia no longer present ST (T wave) deviation no longer present Electronically Signed On 09-08-2024 15:14:45 DATASTAGE CONSULTANT by Emiliano Rocha M.D. [email or web address]
[2024-09-08] VITALS (11 sets, daily range): BP systolic 142–161; BP diastolic 66–89; PULSE 74–85; RESP 12–21; O2SAT 92–98
[2024-09-08] MEDS: LORazepam 2 mg/mL INJ 1 mL 1 MG IVP ×2 (00:02→01:02)
== END 2024-09-08 01:15 | disposition home or self-care (01) ==
PROVIDERS: Emergency Medicine; Emergency Provider Emergency Medicine; PCP Family Medicine
DX: R07.89 Other chest pain (principal); Z79.82 Long term (current) use of aspirin; I10 Essential (primary) hypertension
CPT/HCPCS: 36415; 71045; 80053; 83690; 83880; 84484; 85025; 93005; 96374; 96375; 96376; 99285; J2060; J2270; J2405

== ENCOUNTER → 2024-10-29 07:42 | Outpatient (BNVA) | payer OTHER, SELFPAY | PROVIDERS: PCP Family Medicine; Visit Provider Orthopaedic Surgery | DX: Z98.1 Arthrodesis status (principal) | CPT/HCPCS: 72040 ==

== ENCOUNTER 2024-11-10 06:42 | Outpatient (CLI) | payer OTHER, SELFPAY ==
--- NOTE | 2024-11-10 07:15 | MR_ITS ---
WS: [id number] MRI CERVICAL SPINE NONCONTRAST TECHNIQUE: Sagittal T1, T2 and STIR imaging. Axial T2, gradient, and fiesta imaging. CLINICAL INFORMATION: neck pain COMPARISON: MRI 03/18/24 FINDINGS: Interval postoperative changes ACDF C5-C7. Cord signal is normal. C2-C3: Mild RIGHT bony foraminal narrowing. Moderate RIGHT facet arthropathy. C3-C4: Moderate facet arthropathy. Mild LEFT bony foraminal narrowing. C4-C5: Disc osteophyte complex with endplate ridging. Moderate facet arthropathy. Mild RIGHT facet synovitis. Moderate LEFT bony foraminal narrowing. Mild RIGHT bony foraminal narrowing. Uncovertebral joint hypertrophy. C5-C6: Postoperative changes ACDF. Moderate LEFT bony foraminal narrowing. Spinal canal is patent. Moderate facet arthropathy. C6-C7: ACDF. Severe LEFT and moderate RIGHT bony foraminal narrowing. Moderate facet arthropathy. Mild central canal stenosis. C7-T1: ACDF C7. Mild LEFT greater than RIGHT bony foraminal narrowing. Visualized brain stem structures: Normal. Prevertebral soft tissues: Normal. MR/MR cervical spin wo con* [id number] IMPRESSION: 1. Straightening of the normal cervical lordosis with interval ACDF C5-C7. 2. Cord signal is normal. 3. Mild central canal stenosis C6-7. 4. Mild RIGHT C4-5 facet synovitis. 5. Severe LEFT C6-7 bony foraminal narrowing.
== END 2024-11-10 06:43 | disposition home or self-care (01) ==
PROVIDERS: PCP Family Medicine; Visit Provider Orthopaedic Surgery
DX: Z98.1 Arthrodesis status (principal); M48.02 Spinal stenosis, cervical region; M65.88 Other synovitis and tenosynovitis, other site; M47.892 Other spondylosis, cervical region; M25.78 Osteophyte, vertebrae; R93.7 Abnormal findings on diagnostic imaging of other parts of musculoskeletal system
CPT/HCPCS: 72141

== ENCOUNTER 2024-11-17 07:27 | Outpatient (CLI) | payer OTHER, SELFPAY ==
--- NOTE | 2024-11-17 08:00 | MM_ITS ---
WS: [id number] DIAGNOSTIC BILATERAL DIGITAL BREAST TOMOSYNTHESIS MAMMOGRAPHY WITH CAD Bilateral breast ultrasound, limited HISTORY: Pain, nipple discharge. COMPARISON: 01/21/2023 and 11/07/2016 TECHNIQUE: Bilateral craniocaudad, mediolateral oblique, and mediolateral views are submitted with tomosynthesis and SM. Computer aided detection utilized. Breast composition: There are scattered areas of fibroglandular density. Stable appearance of the breast parenchyma since 2017. No new mass or area of distortion. There is no suspicious grouping of calcifications. No nipple retraction. Bilateral breast ultrasound, limited. RIGHT: Retroareolar RIGHT breast demonstrates no duct dilatation. No mass or abnormal shadowing. Imaging performed in the area of pain as directed by the patient. LEFT: Retroareolar LEFT breast demonstrates no mass or duct dilatation. No shadowing. Imaging performed in the area of pain as directed by the patient. MM/MM diag BI tomosynthesis [id number] IMPRESSION: BI-RADS: 2 - Benign. FOLLOW UP: 1 Year Follow-up No abnormality noted within either breast in the areas of concern directed by t he patient.
--- NOTE | 2024-11-17 08:14 | US_ITS ---
WS: [id number] DIAGNOSTIC BILATERAL DIGITAL BREAST TOMOSYNTHESIS MAMMOGRAPHY WITH CAD Bilateral breast ultrasound, limited HISTORY: Pain, nipple discharge. COMPARISON: 01/21/2023 and 11/07/2016 TECHNIQUE: Bilateral craniocaudad, mediolateral oblique, and mediolateral views are submitted with tomosynthesis and SM. Computer aided detection utilized. Breast composition: There are scattered areas of fibroglandular density. Stable appearance of the breast parenchyma since 2017. No new mass or area of distortion. There is no suspicious grouping of calcifications. No nipple retraction. Bilateral breast ultrasound, limited. RIGHT: Retroareolar RIGHT breast demonstrates no duct dilatation. No mass or abnormal shadowing. Imaging performed in the area of pain as directed by the patient. LEFT: Retroareolar LEFT breast demonstrates no mass or duct dilatation. No shadowing. Imaging performed in the area of pain as directed by the patient. US/US breast BI limited* [id number] IMPRESSION: BI-RADS: 2 - Benign. FOLLOW UP: 1 Year Follow-up No abnormality noted within either breast in the areas of concern directed by t ron patient.
== END 2024-11-17 07:28 | disposition home or self-care (01) ==
LOC: RAD 07:29
PROVIDERS: PCP Family Medicine; Visit Provider Family Medicine
DX: N64.4 Mastodynia (principal); R92.323 Mammographic fibroglandular density, bilateral breasts
CPT/HCPCS: 76642; 77062; G0279

== ENCOUNTER 2024-11-17 08:42 | Day surgery (SDC) | payer OTHER, SELFPAY ==
[2024-11-17 08:55] VITALS: BP 182/84; PULSE 134; RESP 18; TEMP 36.8; O2SAT 96
[2024-11-17 09:10] VITALS: BP 132/84; PULSE 111; RESP 18; O2SAT 96
[2024-11-17 09:27] VITALS: BMI 32.5
--- NOTE | 2024-11-17 09:30 | ECG_ITS ---
[facility] Date: 2024-11-17 Pat Name: Evy Shaw Department: Room: Gender: Female Staffing Mgr: : 1970 Requested By: Lizette Roman Order Number: [id number] Reading MD: TERRI CALL Measurements Intervals [place] Rate: 110 P: 57 [place]: 164 QRS: 5 QRSD: 75 T: 18 QT: 335 QTc: 453 Interpretive Statements SINUS TACHYCARDIA NONSPECIFIC ST & T-WAVE ABNORMALITY ABNORMAL RHYTHM ECG Compared to ECG 09/08/2024 00:14:10 Sinus rhythm no longer present T-wave abnormality still present Electronically Signed On 11-17-2024 23:45:55 DIRECTOR OF BUSINESS DEVELOPMENT by TERRI CALL [id number] [id number]
[2024-11-17] MEDS: sodium chloride 0.9% 500 ML 15 ML IV (09:46)
--- NOTE | 2024-11-17 10:06 | ANES.PREANE2 ---
Pre-Anesthetic Assessment Height/Weight: Height 1.57 m Weight 80.739 kg Temp Pulse Resp BP Pulse Ox O2 Del Method 98.3 F 111 H 18 132/84 96 Room Air 11/17/24 08:55 11/17/24 09:10 11/17/24 09:10 11/17/24 09:10 11/17/24 09:10 11/17/24 09:10 Preop Diagnosis: Abd. Pain, change in bowels, N/V, family history of cancer. Operation Date: 11/17/24 11:15 Proposed Procedures p EGD 42540, 62937, G0105, R19.4, R12(Not Applicable) - Ed Horvath MD s Colonoscopy(Not Applicable) - Ed Horvath MD Familial anesthetic complications: none Was Beta Prabhjot taken within 24 hours: Yes (Metoprolol given preop, last dose 11/16 0500) Was Clonidine taken within 24 hours: N/A Last intake: Intake Last Liquid Date 11/16/24 Last Liquid Time 22:00 Last Solid Date 11/15/24 Last Solid Time 12:00 Social No alcohol and No tobacco Exam alert, oriented x 3 and clear to auscultation bilaterally Sinus tach 110 Airway Mallampati: Class II Pulmonary Sleep Apnea CV/HEM Arrythmia and Hypertension Sinus tach. HLD None reported Hepatic None reported GI Gastroesophageal Reflux Disease Metabolic None reported Musc/skel Chronic back pain Neuropsych Anxiety and Depression Anesthetic Plan ASA status: 3 Anesthesia: MAC Risk of > 500 ml blood loss (7ml/kg in children): No Medications/Allergies Home Medications ?Medication ?Instructions ?Recorded ?Confirmed ?Last Taken ?Type aspirin 81 mg tablet,delayed 81 mg PO BEDTIME 12/25/22 11/12/24 11/15/24 History release (Adult Low Dose Aspirin) calcium carbonate 500 mg PO BEDTIME 01/31/23 11/12/24 11/15/24 History flaxseed oil 1,000 mg capsule 1,000 mg PO BEDTIME 01/31/23 11/12/24 11/15/24 History omega-3 fatty acids-fish oil 684 1 cap PO BEDTIME 01/31/23 11/12/24 11/15/24 History mg-1,200 mg capsule,delayed release cetirizine 10 mg tablet (Zyrtec) 10 mg PO DAILY #90 tabs 04/20/24 11/12/24 11/16/24 Rx CPAP 6-16cm mmHg setting #1 ea 05/06/24 11/12/24 Unknown Rx CPAP mask, tubing, supplies #1 ea 05/06/24 11/12/24 Unknown Rx carisoprodol 350 mg tablet (Soma) 350 mg PO TID PRN Muscle Spasm #60 07/02/24 11/12/24 Unknown Rx tabs hydrocodone 10 mg-acetaminophen 1 tab PO Q8H PRN pain 7 days #21 07/23/24 11/17/24 2 Months Ago Rx 325 mg tablet tabs ~09/16/24 albuterol sulfate 90 mcg/actuation 2 puff inhalation QID PRN 09/17/24 11/17/24 5 Months Ago Rx aerosol inhaler Shortness Of Breath #6.7 grams ~06/17/24 clonazepam 1 mg tablet 1 mg PO DAILY PRN Anxiety #30 tabs 09/17/24 11/17/24 11/15/24 Rx duloxetine 60 mg capsule,delayed 60 mg PO DAILY #90 caps 09/17/24 11/12/24 11/16/24 Rx release enalapril maleate 20 mg tablet 20 mg PO QAM #90 tabs 09/17/24 11/12/24 11/16/24 Rx gabapentin 300 mg capsule 300 mg PO BID #180 caps 09/17/24 11/12/24 11/16/24 Rx hydrochlorothiazide 25 mg tablet 25 mg PO DAILY #90 tabs 09/17/24 11/12/24 11/16/24 Rx metoprolol tartrate 50 mg tablet 50 mg PO BID #180 tabs 09/17/24 11/12/24 11/12/24 Rx pantoprazole 40 mg tablet,delayed 40 mg PO DAILY #90 tabs 09/17/24 11/12/24 11/16/24 Rx release (Protonix) ropinirole 0.5 mg tablet 0.5 mg PO DAILY #90 tabs 09/17/24 11/12/24 11/16/24 Rx cyclobenzaprine 10 mg tablet 10 mg PO TID 30 days #90 tabs 10/29/24 11/12/24 11/16/24 Rx prednisone 20 mg tablet 20 mg PO DAILY #15 tabs 0211/12/24 11/16/24 Rx Allergies Allergy/AdvReac Type Severity Reaction Status Date / Time No Known Allergies Allergy Verified 10/12/24 09:07 Current Medications Generic Name Dose Route Start Last Admin Trade Name Keily PRN Reason Stop Dose Admin Sodium Chloride 500 mls @ 15 mls/hr 11/17/24 09:00 11/17/24 09:46 Sodium Chloride 0.9% IV 11/18/24 08:59 15 mls/hr .Q24H PRN Administration COLONOSCOPY FLUIDS PFSH Anesthesia Medical History MARITZA (obstructive sleep apnea) Tobacco use disorder Chronic neck pain GERD without esophagitis Anxiety and depression Hypertension Surgical History History of hysterectomy Hx of appendectomy History of cholecystectomy Family History Father Congestive heart failure (CHF) Mother Diabetes Hypertension Cancer Breast Social History Smoking and tobacco/nicotine status: current every day tobacco/nicotine user cigarettes Packs smoked per day: 0.25 Quit status (tobacco/nicotine): considering quitting Second hand smoke exposure: No Alcohol intake: current Alcohol intake frequency: few times a week Substance/Drug Use: never Adopted: No Lives independently: Yes Household members: spouse Marital status: Number of children: 4 Number of grandchildren: 3 service: Yes branch: [employer] Current occupational status: employed 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
[2024-11-17 10:10] LABS: Blood Urea Nitrogen 11 mg/dL (6-20); Calcium 9.3 mg/dL (8.5-10.5); Carbon Dioxide 27 mmol/L (22-29); Chloride 101 mmol/L (98-107); Creatinine Clr Calc Pharmacy 68.7066; Glomerular Filtration Rate 64.8 mL/min (90-130); Glucose 99 mg/dL (65-115); Osmolality Calculated 291 mOsm/kg (285-295); Sodium 141 mmol/L (136-145)
--- NOTE | 2024-11-17 11:42 | W.PM.OPSFHP ---
Same Day Surgery H&P Indication for Procedure/HPI DATE OF PROCEDURE: November 17, 2024 CHIEF COMPLAINT/INDICATIONFOR SURGICAL PROCEDURE: abdominal pain, change in bowel habits PREOP DIAGNOSIS: Abd. Pain, change in bowels, N/V, family history of cancer. PLANNED PROCEDURE: Operation Date: 11/17/24 11:15 Proposed Procedures p EGD 42658, 37978, G0105, R19.4, R12(Not Applicable) - Ed Horvath MD s Colonoscopy(Not Applicable) - Ed Horvath MD Medications/Allergies* Home Medications ?Medication ?Instructions ?Recorded ?Confirmed ?Type aspirin 81 mg tablet,delayed 81 mg PO BEDTIME 12/25/22 11/12/24 History release (Adult Low Dose Aspirin) calcium carbonate 500 mg PO BEDTIME 01/31/23 11/12/24 History flaxseed oil 1,000 mg capsule 1,000 mg PO BEDTIME 01/31/23 11/12/24 History omega-3 fatty acids-fish oil 684 1 cap PO BEDTIME 01/31/23 11/12/24 History mg-1,200 mg capsule,delayed release Allergies/Adverse Reactions Allergy/AdvReac Type Severity Reaction Status Date / Time No Known Allergies Allergy Verified 10/12/24 09:07 Current Medications: Generic Name Dose Route Start Last Admin Trade Name Freq PRN Reason Stop Dose Admin Sodium Chloride 500 mls @ 15 mls/hr 11/17/24 09:00 11/17/24 09:46 Sodium Chloride 0.9% IV 11/18/24 08:59 15 mls/hr .Q24H PRN Administration COLONOSCOPY FLUIDS Pertinent History/Comorbid Conditions* Medical History (Updated 10/12/24 @ 09:32 by Ed Horvath MD) MARITZA (obstructive sleep apnea) Tobacco use disorder Chronic neck pain GERD without esophagitis Anxiety and depression Hypertension Surgical History (Updated 05/19/24 @ 09:25 by Leonidas Maria DO) History of hysterectomy Hx of appendectomy History of cholecystectomy Family History (Updated 12/25/22 @ 13:20 by Macy Jauregui LPN) Diabetes Mother Congestive heart failure (CHF) Father Cancer Mother Breast Hypertension Mother Social History Smoking and tobacco/nicotine status: current every day tobacco/nicotine user cigarettes Packs smoked per day: 0.25 Quit status (tobacco/nicotine): considering quitting Second hand smoke exposure: No Alcohol intake: current Alcohol intake frequency: few times a week Substance/Drug Use: never Adopted: No Lives independently: Yes Household members: spouse Marital status: Number of children: 4 Number of grandchildren: 3 service: Yes branch: [employer] Current occupational status: employed 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
[2024-11-17 12:34] VITALS: BP 110/69; PULSE 111; RESP 18; TEMP 36.4; O2SAT 99
[2024-11-17 12:46] VITALS: BP 121/66; PULSE 105; RESP 18; TEMP 36.3; O2SAT 94
--- NOTE | 2024-11-17 13:05 | ANE.PACU2 ---
Inpatient post-anesthesia follow up: Airway intact: Yes Vital signs: Temperature 97.3 F Pulse Rate 105 Respiratory Rate 18 Blood Pressure 121/66 Pulse Oximetry 94 Oxygen Delivery Me thod Room Air Oxygen Flow Rate Fraction of Inspir ed Oxygen Hydration adequate: Yes Nausea and vomiting: No Pain level: 1 Mental status: Baseline
== END 2024-11-17 13:08 | disposition home or self-care (01) ==
PROVIDERS: Anesthesiology; PCP Family Medicine; Visit Provider Student in an Organized Health Care Education/Training Program
PROC: 0DJ08ZZ Inspection of Upper Intestinal Tract, Via Natural or Artificial Opening Endoscopic (ICD-10-PCS; principal; 2024-11-17 11:15)
PROC: 0DJD8ZZ Inspection of Lower Intestinal Tract, Via Natural or Artificial Opening Endoscopic (ICD-10-PCS; CPT 45378; 2024-11-17 11:15)
DX: K52.9 Noninfective gastroenteritis and colitis, unspecified (principal); K29.50 Unspecified chronic gastritis without bleeding; B96.81 Helicobacter pylori [H. pylori] as the cause of diseases classified elsewhere; Z79.82 Long term (current) use of aspirin; G47.33 Obstructive sleep apnea (adult) (pediatric); G89.29 Other chronic pain; M54.9 Dorsalgia, unspecified; I10 Essential (primary) hypertension; K21.9 Gastro-esophageal reflux disease without esophagitis; F41.9 Anxiety disorder, unspecified; F32.A Depression, unspecified; Z90.710 Acquired absence of both cervix and uterus; Z90.49 Acquired absence of other specified parts of digestive tract; F17.210 Nicotine dependence, cigarettes, uncomplicated; Z79.899 Other long term (current) drug therapy; R00.0 Tachycardia, unspecified
CPT/HCPCS: 36415; 43239; 45380; 80048; 88305; 88342; 93005; J2250; J2704; J3490; J7040

== ENCOUNTER 2025-03-30 18:07 | Emergency (ER) | payer OTHER, SELFPAY ==
[2025-03-30 18:09] VITALS: BP 148/91; PULSE 102; TEMP 36.8; O2SAT 96
--- OUTSIDE RECORDS SUMMARY | 2025-03-30 18:10 | XMS_ITS | Clinical Summary ---
Author Organization [facility] Address [address] [place] [address] Phone Care Team Providers Care Corporate Legal Manager Name Role Phone Unavailable Primary Care Provider Unavailabl e Social History Tobacco Use Types Packs/Day Years Used Date Smoking Tobacco: Never Assessed Comments Unknown Sex and Gender Information Value Date Recorded Sex Assigned at Not on file Legal Sex Female 8:52 AM CDT Gender Identity Not on file Sexual Orientation Not on file Plan of Treatment Upcoming Encounters Date Type Department Care Team (Late st Contact Info) Description 05/10/2025 8:30 AM CDT Office Visit 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 [address] [facility] [address] [phone] Health Maintenance Due Date Last Done Comments DTAP/TDAP/TD VACCINES (1 - Tdap) 02/13/1987 HEPATITIS B VACCINES (1 of 3 - 19+ 3-dose series) 01/22 HPV/Cotest (21-29) 02/13/1989 CERVICAL CANCER SCREENING 02/13/1998 HPV/Cotest (30-65) 02/13/1998 PAP SMEAR 02/13/1998 BREAST CANCER SCREENING 2008 COLORECTAL SCREENING 02/13/2013 Colorectal Cancer Screening 02/13/2013 FIT-DNA Q 3 years 02/13/2013 FIT/FOBT Q 1 year 02/13/2013 Flex Sig/CT Colonography Q 5 years 02/13/2013 ZOSTER VACCINE (1 of 2) 02/13/2018 INFLUENZA VACCINE (#1) 2025 Insurance [facility] CHOICE [id number] [place] [address]
--- OUTSIDE RECORDS SUMMARY | 2025-03-30 18:10 | XMS_ITS | Patient Health Record ---
Author Organization [facility] Address [address] [place], [place] [address] Care Team Providers Care Flower Buncher Or Picker Name Role Phone Tashi Cuellar MD Primary Care Provider Alyssa Wheatley MD, Kenn Unavailable [phone] Allergies Allergen (clinical drug ingredient) Drug/Non Drug Allergy documented on EMR Reaction Allergy Type Onset Date Status None or not verifiab le (as is Current Medications) (uncoded) Unknown Allergy Active Reason For Referral No Information Medications Medication SIG (Take, Route, Frequency, Duration) Notes Start Date End Date Status Metoprolol Tartrate 25 mg 1 tab orally 2 times a day Active pantoprazole 40 mg 1 tab orally once a day Active flaxseed oil 1000 mg 2 orally once daily Active risperiDONE 1 mg 1 tab orally once a day Active enalapril 10 mg 1 tab orally once a day Active nortriptyline 50 mg 3 cap(s) orally once a day Active Estroven as directed Active citalopram 40 mg 1 tab orally once a day Active Augmentin 875 mg-125 mg 1 tab orally janet ry 12 hours Active acetaminophen-hydrocodone 325 mg-10 mg 1 tab po orally QID prn pain Active Benadryl 1 cap orally as needed Active carisoprodol 350 mg 1 tab po orally BID prn spasm Active multivitamin Thermo-Fit 1 cap(s) orally once a day Active Melatonin 1 cap orally once (a t bedtime) Active Tylenol Sinus Congestion and Pain 1 tab orally prn Active Social History Tobacco Use: Social History Observation Description Date Details (start date - stop date) Current Smoker NA - NA alcohol Question Answer Notes Did you have a drink contain ing alcohol in the past year? Yes Points 3 Interpretation Positive How often did you have a dri nk containing alcohol in the past year? Two to four times a month (2 points) How many drinks did you have on a typical day when you were drinking in the past year? 1 or 2 (0 points) How often did you have six o r more drinks on one occasion in the past year? Less than monthly (1 point) Tobacco use: Question Answer Notes : current smoker Are you interested in quitting? Ready to quit How many cigarettes a day do you smoke? 6-10 How often do you smoke cigarettes? every day How soon after you wake up do you smoke your fir st cigarette? 31-60 min Problems Problem Type SNOMED Code ICD Code Onset Dates Problem Status W/U Status Risk Notes Problem Cervical spondylosis without myelopathy (976152775) Cervical spondylosis without myelopathy (721.0) Active confirmed Problem Neck pain (83228731) Neck pain (723.1) Active confirmed Problem Long-term drug therapy (887640939) LONG-TERM USE MEDS NEC (V58.69) Active confirmed r/o substance abuse Problem Anxiety state (210786117) Anxiety State, other, specified: procedure related (300.09) Active confirmed Problem Displacement of cervical intervertebral disc without myelopathy (33646560) Cervical (w/out myelopathy) intervertebral disc disorder (722.0) Active confirmed Problem High risk drug monitoring status (000779239) 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 analgesic (Z79.891) Active confirmed Problem Anxiety disorder (221002351) Other specified anxiety disorders (F41.8) Active confirmed Problem Cervical spondylosis without myelopathy (014819276) Spondylosis without myelopathy or radiculopathy, cervical region (M47.812) Active confirmed Problem Cervical radiculopathy (11825625) Cervical disc disorder with radiculopathy, unspecified cervical region (M50.10) Active confirmed Problem Cervical disc disorder with radiculopathy (624228368) Cervical disc disorder with radiculopathy, mid-cervical region (M50.12) Active confirmed Problem Cervicalgia (10350696) Cervicalgia (M54.2) Active confirmed Plan Of Treatment No Information Insurance Providers Payer Name Payer Address Payer Phone Subscriber Number Group Number Insured Name Patient Relationship to Insured Coverage Start Date Coverage End Date [facility] [address] [place], [place] [address] [id number] Evy Shaw Self - patient is the insured Medical (General) History Medical History History ICD Code See prior documentation Surgical History Surgery Date(Month/Year) Tonsillectomy Appendectomy Cholecystectomy Hysterectomy Oophorectomy Carpal tunnel release, right Adhesion release Hospitalization History Reason Date(Month/Year) Gastritis
--- NOTE | 2025-03-30 18:17 | XRR_ITS ---
PROCEDURE INFORMATION: Exam: XR Left Hand Exam date and time: 03/30/2025 6:29 PM Age: 55 years old Clinical indication: Finger(s); Left; Lt thumb pain/swelling after twisting injury TECHNIQUE: Imaging protocol: Radiologic exam of the left hand. Views: 3 or more views. COMPARISON: No relevant prior studies available. FINDINGS: Bones/joints: Normal. Soft tissues: Normal. XR/XR hand LT min 3V* [id number] IMPRESSION: No acute findings.
[2025-03-30 18:24] VITALS: PULSE 116; O2SAT 99
--- NOTE | 2025-03-30 18:25 | PC.NURSE ---
PATIENT GIVEN ICE BAG FOR THUMB PAIN.
--- NOTE | 2025-03-30 18:53 | W.ED.EXTPRO ---
HPI - Extremity Problem General: Chief complaint: Extremity Injury, Upper Stated complaint: L thumb pain Time Seen by Provider: 03/30/25 18:16 History of Present Illness: Patient comes in with left thumb pain. States she was putting on her shirt when she felt a pop and now she is having uncontrolled pain at the base of her thumb. States she cannot move it secondary to pain. On physical exam she has a ganglion cyst along the lateral aspect of her left thumb base which she states has been there for a while. She does have swelling around the base of the thumb and pain with range of motion. X-ray done while waiting shows no acute bony abnormality. Will encourage anti-inflammatories, ice, and refer her to hand surgery for the ganglion cyst. Will discharge at this time with precautions to return for worsening or changing symptoms. Related Data Home Medications ?Medication ?Instructions ?Recorded ?Confirmed aspirin 81 mg tablet,delayed 81 mg PO BEDTIME 12/25/22 12/24/24 release (Adult Low Dose Aspirin) Held on 11/17/24. Instructions: Resume on 11/18/24. calcium carbonate 500 mg PO BEDTIME 01/31/23 12/24/24 flaxseed oil 1,000 mg capsule 1,000 mg PO BEDTIME 01/31/23 12/24/24 omega-3 fatty acids-fish oil 684 1 cap PO BEDTIME 01/31/23 12/24/24 mg-1,200 mg capsule,delayed release Previous Rx's ?Medication ?Instructions ?Recorded CPAP 6-16cm mmHg setting #1 ea 05/06/24 CPAP mask, tubing, supplies #1 ea 05/06/24 hydrocodone 10 mg-acetaminophen 1 tab PO Q8H PRN pain 7 days #21 07/23/24 325 mg tablet tabs albuterol sulfate 90 mcg/actuation 2 puff inhalation QID PRN 09/17/24 aerosol inhaler Shortness Of Breath #6.7 grams duloxetine 60 mg capsule,delayed 60 mg PO DAILY #90 caps 09/17/24 release gabapentin 300 mg capsule 300 mg PO BID #180 caps 09/17/24 hydrochlorothiazide 25 mg tablet 25 mg PO DAILY #90 tabs 09/17/24 ropinirole 0.5 mg tablet 0.5 mg PO DAILY #90 tabs 09/17/24 cyclobenzaprine 10 mg tablet 10 mg PO TID 30 days #90 tabs 10/29/24 tizanidine 4 mg capsule 4 mg PO BID PRN muscle spasticity 12/15/24 #30 caps cetirizine 10 mg tablet (Zyrtec) 10 mg PO DAILY #90 tabs 01/21/25 clonazepam 1 mg tablet 1 mg PO DAILY PRN Anxiety #30 tabs 01/21/25 pantoprazole 40 mg tablet,delayed 40 mg PO DAILY #90 tabs 02/26/25 release (Protonix) enalapril maleate 20 mg tablet 20 mg PO QAM #90 tabs 03/16/25 metoprolol tartrate 50 mg tablet 50 mg PO BID #180 tabs 03/22/25 Allergies Allergy/AdvReac Type Severity Reaction Status Date / Time No Known Allergies Allergy Verified 03/30/25 18:14 Review of Systems Musc: Reports: joint pain and joint swelling PFS ED PFSH: Medical History (Updated 03/30/25 @ 18:57 by Evelio San MD) MARITZA (obstructive sleep apnea) Tobacco use disorder Chronic neck pain GERD without esophagitis Anxiety and depression Hypertension Surgical History History of hysterectomy Hx of appendectomy History of cholecystectomy Family History Father Congestive heart failure (CHF) Mother Diabetes Hypertension Cancer Breast Social History Smoking and tobacco/nicotine status: current every day tobacco/nicotine user cigarettes Packs smoked per day: 0.25 Quit status (tobacco/nicotine): considering quitting Second hand smoke exposure: No Alcohol intake: current Alcohol intake frequency: few times a week Substance/Drug Use: never Adopted: No Lives independently: Yes Household members: spouse Marital status: Number of children: 4 Number of grandchildren: 3 service: Yes branch: [employer] Current occupational status: employed 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 [employer] Current occupational exposures/hazards: No Pets and animals: No Sexually active: Yes Do you think of yourself as: Straight/Heterosexual Current gender identity: Female Female Reproductive History: Spontaneous abortions: No Physical Exam Const: COMMON NORMALS: healthy appearing HENMT: COMMON NORMALS: normocephalic and atraumatic HEAD & SCALP: normocephalic and atraumatic Eye: COMMON NORMALS: EOMs intact bilaterally Neck/C-Spine: COMMON NORMALS: full ROM and supple Resp: COMMON NORMALS: normal respiratory effort and No use of accessory muscles Cardio: COMMON NORMALS: regular rate RATE: regular rate Extremity: NARRATIVE EXTREMITY EXAM: Swelling of the left thumb with a ganglion cyst along the base of the left thumb, pain with range of motion Course Vital Signs: Vital signs: Vital Signs Temperature 98.2 F 03/30/25 18:09 Pulse Rate 116 H 03/30/25 18:24 Blood Pressure 148/91 03/30/25 18:09 Pulse Oximetry 99 03/30/25 18:24 Oxygen Delivery Me thod Room Air 03/30/25 18:24 MDM - Extremity (Nontraumatic) Medical Decision Making n All radiology interpretation(s) finalized by discharge Discharge Plan Discharge Patient Disposition: Home Clinical Impression: Ganglion cyst of finger, Left thumb sprain Condition: Stable Prescriptions: No Action hydrocodone-acetaminophen 10-325 mg tablet 1 tab PO Q8H PRN (Reason: pain) 7 Days Qty: 21 0RF ropinirole 0.5 mg tablet 0.5 mg PO DAILY Qty: 90 1RF gabapentin 300 mg capsule 300 mg PO BID Qty: 180 1RF duloxetine 60 mg capsule,delayed release(DR/EC) 60 mg PO DAILY Qty: 90 1RF albuterol sulfate 90 mcg/actuation HFA aerosol inhaler 2 puff INHALATION QID PRN (Reason: Shortness Of Breath) Qty: 6.7 2RF hydrochlorothiazide 25 mg tablet 25 mg PO DAILY Qty: 90 1RF aspirin [Adult Low Dose Aspirin] 81 mg tablet,delayed release (DR/EC) 81 mg PO BEDTIME cyclobenzaprine 10 mg tablet 10 mg PO TID 30 Days Qty: 90 0RF tizanidine 4 mg capsule 4 mg PO BID PRN (Reason: muscle spasticity) Qty: 30 0RF (DME) CPAP 6-16cm mmHg setting See Rx Instructions .ROUTE .MEDSUPPLY Qty: 1 0RF Rx Instructions: As directed (DME) CPAP mask, tubing, supplies See Rx Instructions .ROUTE .MEDSUPPLY Qty: 1 1RF Rx Instructions: As directed clonazepam 1 mg tablet 1 mg PO DAILY PRN (Reason: Anxiety) Qty: 30 0RF cetirizine [Zyrtec] 10 mg tablet 10 mg PO DAILY Qty: 90 1RF pantoprazole [Protonix] 40 mg tablet,delayed release (DR/EC) 40 mg PO DAILY Qty: 90 1RF enalapril maleate 20 mg tablet 20 mg PO QAM Qty: 90 1RF metoprolol tartrate 50 mg tablet 50 mg PO BID Qty: 180 1RF flaxseed oil 1,000 mg Capsule 1,000 mg PO BEDTIME calcium carbonate 500 mg calcium (1,250 mg) Tablet 500 mg PO BEDTIME omega-3 fatty acids-fish oil 684-1,200 mg Capsule,Delayed Release(Dr/Ec) 1 cap PO BEDTIME Discharge Orders: Discharge ED (Routine); Ordered 03/30/25 Ordered By: Evelio San Referrals: Hillary Martínez DO [Primary Care Provider] Patient Instructions: Ganglion Cyst (ED), Finger Sprain (ED), Patient Portal & Janet Instructions Print Language: Azerbaijani Coding Level of Care Code ED Detention Attendant for Regino Ta
[2025-03-30 19:33] VITALS: BP 143/85; PULSE 88; RESP 18; O2SAT 95
--- NOTE | 2025-03-31 07:43 | DCPLANNER ---
Referral Sent to [facility] hand Specialist
== END 2025-03-30 19:35 | disposition home or self-care (01) ==
PROVIDERS: Emergency Provider Emergency Medicine; PCP Student in an Organized Health Care Education/Training Program
DX: M67.442 Ganglion, left hand (principal); S63.602A Unspecified sprain of left thumb, initial encounter; Z79.82 Long term (current) use of aspirin; F17.210 Nicotine dependence, cigarettes, uncomplicated; I10 Essential (primary) hypertension; X58.XXXA Exposure to other specified factors, initial encounter
CPT/HCPCS: 73130; 96372; 99284; J1885

== ENCOUNTER 2025-05-07 14:21 | Inpatient (IN) | payer OTHER, SELFPAY ==
[2025-05-07] VITALS (11 sets, daily range): BP systolic 107–162; BP diastolic 71–102; PULSE 79–115; RESP 13–22; TEMP 36.3–37; O2SAT 91–100
--- NOTE | 2025-05-07 14:24 | XR_ITS ---
WS: [id number] Portable AP upright chest, 05/07/2025 Clinical Data: cp Comparison: Portable chest, 09/07/2024 Findings: No nodules, masses or effusions are seen. The heart is normal. The pulmonary vascularity is not increased. No pneumonia or pneumothorax is seen. Monitor leads are on the chest wall. There is an anterior cervical disc fusion. XR/XR chest 1V portable 11046 Impression: Negative chest.
--- NOTE | 2025-05-07 14:26 | ECG_ITS ---
[facility] Test Date: 2025-05-07 Pat Name: Evy Shaw Department: Room: Gender: Female Hair Worker: : 1970 Requested By: Alfred Arroyo Order Number: [id number] Richi MD: Juan Pablo Capps M.D. Measurements Intervals Dewey Rate: 116 P: 57 IN: 132 QRS: 20 QRSD: 77 T: 55 QT: 306 QTc: 426 Interpretive Statements SINUS TACHYCARDIA POSSIBLE LEFT ATRIAL ENLARGEMENT [-0.1mV P-WAVE IN V1/V2] MILD ST DEPRESSION [0.05+ mV ST DEPRESSION] Compared to ECG 11/17/2024 09:37:42 ST deviation still present but mildly increased Electronically Signed On 05-08-2025 20:53:20 CDT by Juan Pablo Capps M.D. [email or web address]
--- OUTSIDE RECORDS SUMMARY | 2025-05-07 14:31 | XMS_ITS | Patient Health Record ---
Author Organization [facility] Address [address] [place], [place] [address] Care Team Providers Care Correctional Therapy Director Name Role Phone Tashi Cuellar MD Primary Care Provider Alyssa Wheatley MD, Kenn Unavailable [phone] Allergies Allergen (clinical drug ingredient) Drug/Non Drug [...] Risk Notes Problem Cervical spondylosis without myelopathy (910047675) Cervical spondylosis without myelopathy (721.0) Active confirmed Problem Neck pain (29286692) Neck pain (723.1) Active confirmed Problem Long-term drug therapy (034341309) LONG-TERM USE MEDS NEC (V58.69) Active confirmed r/o substance abuse Problem Anxiety state (551636010) Anxiety State, other, specified: procedure related (300.09) Active confirmed Problem Displacement of cervical intervertebral disc without myelopathy (65535771) Cervical (w/out myelopathy) intervertebral disc disorder (722.0) Active confirmed Problem High risk drug monitoring status (916383372) [facility] (current) use of opiate analgesic (Z79.891) Active confirmed Problem Anxiety disorder (071698918) Other specified anxiety disorders (F41.8) Active confirmed Problem Cervical spondylosis without myelopathy (792743486) Spondylosis without myelopathy or radiculopathy, cervical region (M47.812) Active confirmed Problem Cervical radiculopathy (33302513) Cervical disc disorder with radiculopathy, unspecified cervical region (M50.10) Active confirmed Problem Cervical disc disorder with radiculopathy (233922918) Cervical disc disorder with radiculopathy, mid-cervical region (M50.12) Active confirmed Problem Cervicalgia (55151466) Cervicalgia (M54.2) Active confirmed Plan Of Treatment No Information Insurance Providers Payer Name Payer Address Payer Phone Subscriber Number Group Number Insured Name Patient Relationship to Insured Coverage Start Date Coverage End Date [facility] [address] [place], [place] [address] [phone] [id number] Evy Shaw Self - patient is the insured Medical (General) History Medical History History ICD Code See prior documentation Surgical History Surgery Date(Month/Year) Tonsillectomy Appendectomy Cholecystectomy Hysterectomy Oophorectomy Carpal tunnel release, right Adhesion release Hospitalization History Reason Date(Month/Year) Gastritis
--- OUTSIDE RECORDS SUMMARY | 2025-05-07 14:31 | XMS_ITS | Clinical Summary ---
Author Organization [facility] Address [address] [place] [address] Phone Care Team Providers Care Collection Correspondent Name Role Phone Unavailable Primary Care Provider Unavailabl e Encounters Date Type Department Care Team Description 04/29/2025 Orders Only [facility] [id number] [place] [address] Raquel Domínguez MD Mass of skin of left thumb (Primary Dx) 04/27/2025 External Device Data ST[facility] ABSTRACTION Provider, Abstract 04/07/2025 External Device Data STL ABSTRACTION Provider, Abstract 04/07/2025 External Device Data STL ABSTRACTION Provider, Abstract 04/07/2025 External Device Data STL ABSTRACTION Provider, Abstract 04/07/2025 External Device Data STL ABSTRACTION Provider, Abstract 04/06/2025 External Device Data STL ABSTRACTION Provider, Abstract 03/31/2025 Telephone [facility] [address] [place] [phone] Vanessa Gorman MD General from Last 3 Months Social History Tobacco Use Types Packs/Day Years [...] Description 05/10/2025 8:30 AM CDT Office Visit [facility] [place] [address] [place] [address] Emi Resendiz FNP [address] [address] Health Maintenance Due Date Last Done [...] 02/13/2013 ZOSTER VACCINE (1 of 2) 02/13/2018 Preventative Visit- Commercial 09/23/2024 INFLUENZA VACCINE (#1) [address] [place] [address] Pegg'd CHOICE [id number]
--- NOTE | 2025-05-07 14:49 | ED_ITS ---
HPI - Chest Pain 2 General: Chief Complaint: Chest Pain Stated Complaint: CP N/V SOB pain down arm Time Seen by Provider: 05/07/25 14:42 Source: patient Mode of arrival: ambulatory Limitations: no limitations History of Present Illness: 55-year-old female with a history of hyp ertension high cholesterol states she started having chest pain today while at work states it is a pressure type pain she had some nausea along with some diaphoresis. She states she had taken a Klonopin also taken some reflux medication states it did not resolve her pain states her pain is still there is a pressure pain she rates a 4 out of 10 she denies any fevers he has some mild dyspnea denies any vomiting. Associated symptoms: Reports dyspnea; Deny abdominal pain, fever(s), nausea or vomiting Related Data Home Medications ?Medication ?Instructions ?Recorded ?Confirmed aspirin 81 mg tablet,delayed 81 mg PO BEDTIME 12/25/22 12/24/24 release (Adult Low Dose Aspirin) Held on 11/17/24. Instructions: Resume on 11/18/24. calcium carbonate 500 mg PO BEDTIME 01/31/23 0 12/24/24 flaxseed oil 1,000 mg capsule 1,000 mg PO BEDTIME 01/2112/24/24 omega-3 fatty acids-fish oil 684 1 cap PO BEDTIME 01/2112/24/24 mg-1,200 mg capsule,delayed release Previous Rx's ?Medication ?Instructions ?Recorded CPAP 6-16cm mmHg setting #1 ea 05/06/24 CPAP mask, tubing, supplies #1 ea 05/06/24 hydrocodone 10 mg-acetaminophen 1 tab PO Q8H PRN pain 7 days #21 07/23/24 325 mg tablet tabs albuterol sulfate 90 mcg/actuation 2 puff inhalation Q ID PRN 09/17/24 aerosol inhaler Shortness Of Breath #6.7 gra ms gabapentin 300 mg capsule 300 mg PO BID #180 caps 08/24 03/16 cyclobenzaprine 10 mg tablet 10 mg PO TID 30 days #90 tabs 10/29/24 tizanidine 4 mg capsule 4 mg PO BID PRN muscle spast icity 12/15/24 #30 caps cetirizine 10 mg tablet (Zyrtec) 10 mg PO DAILY #90 ta bs 01/21/25 pantoprazole 40 mg tablet,delayed 40 mg PO DAILY #90 t abs 02/26/25 release (Protonix) enalapril maleate 20 mg tablet 20 mg PO QAM #90 tabs 0 03/16/25 metoprolol tartrate 50 mg tablet 50 mg PO BID #180 tab s 03/22/25 clonazepam 1 mg tablet 1 mg PO DAILY PRN Anxiety #3 0 tabs 04/27/25 duloxetine 60 mg capsule,delayed 60 mg PO DAILY #90 ca ps 04/27/25 release hydrochlorothiazide 25 mg tablet 25 mg PO DAILY #90 ta bs 04/27/25 ropinirole 0.5 mg tablet 0.5 mg PO DAILY #90 tabs 02/14 Allergies Allergy/AdvReac Type Severity Reaction Status Date / Time No Known Allergies Allergy Verified 03/30/25 18:14 Review of Systems 2 Const: Denies: fever(s), chills, body aches or change in appetite ENMT: Denies: throat pain or dental pain Card: Reports: chest pain Resp: Reports: dyspnea GI: Denies: abdominal pain, nausea, vomiting or diarrhea : Denies: dysuria Musc: Denies: neck pain or back pain Skin/Breast: Denies: rash Neuro: Denies: headache(s) PFSH ED 2 PFSH: Medical History MARITZA (obstructive sleep apnea) Tobacco use disorder Chronic neck pain GERD without esophagitis Anxiety and depression Hypertension Surgical History History of hysterectomy Hx of appendectomy History of cholecystectomy Family History Father Congestive heart failure (CHF) Mother Diabetes Hypertension Cancer Breast Social History Smoking and tobacco/nicotine status: current every day tobacco/nicotine user cigarettes Packs smoked per day: 0.25 Quit status (tobacco/nicotine): considering quitting Second hand smoke exposure: No Alcohol intake: current Alcohol intake frequency: few times a week Substance/Drug Use: never Adopted: No Lives independently: Yes Household members: spouse Marital status: Number of children: 4 Number of grandchildren: 3 service: Yes branch: [employer] Current occupational status: employed 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 [employer] Current occupational exposures/hazards: No Pets and animals: No Sexually active: Yes Do you think of yourself as: Straight/Heterosexual Current gender identity: Female Female Reproductive History: Spontaneous abortions: No Physical Exam 2 Const: COMMON NORMALS: patient oriented x3 and healthy appearing HENMT: COMMON NORMALS: normocephalic and atraumatic HEAD & SCALP: n ormocephalic and atraumatic Eye: COMMON NORMALS: conjunctivae normal CONJUNCTIVA: Yes conjunctivae normal Neck/C-Spine: COMMON NORMALS: full ROM and supple Chest: COMMONS NORMALS: normal inspection of the chest Resp: COMMON NORMALS: normal respiratory effort, No retractions, No use of accessory muscles and clear to auscultation bilaterally AUSCULTATION: clear to auscultation bilaterally Cardio: COMMON NORMALS: regular rhythm and No murmurs present (Cardio) R ATE: tachycardic RHYTHM: regular rhythm GI: COMMON NORMALS: Normal to inspection, nondistended, normoactive bowel sounds present, Soft to palpation, non-tender and no masses PALPATION: Yes Soft to palpation Extremity: COMMON NORMALS: normal to inspection and full ROM Neuro: COMMON NORMALS: patient oriented x3, moves all extremities and no focal motor deficits Psych: COMMON NORMALS: mental status grossly normal, Normal thought process present and cooperative THOUGHT PROCESS: Normal thought process present Skin: COMMON NORMALS: no rashes or lesions noted and no wounds GENERAL SKIN EXAM: no rashes or lesions noted Course 2 Vital Signs: Vital signs: Vital Signs Temperature 98.6 F 05/07/25 14:30 Pulse Rate 115 H 05/07/25 14:30 Respiratory Rate 18 05/07/25 15:00 Blood Pressure 156/83 05/07/25 14:30 Pulse Oximetry 100 05/07/25 15:00 Oxygen Delivery Me thod Room Air 05/07/25 14:30 MDM - Chest Pain Medical Decision Making Patient presents here with chest pain first troponin was negative but has some ST depression lateral leads of her EKG pain here is improved spoke to the hospitalist will admit. Medical Records I reviewed the patient's medical records. Lab Data I reviewed the patient's lab results. 05/07/25 14:51 05/07/25 14:51 Radiology Impressions Chest X-Ray 05/07/25 14:24 Impression: Negative chest. Laboratory Results WBC 19.11 10^3/uL (3.29-11.43) H 05/07/25 14:51 RBC 4.48 10^6/uL (3.85-5.65) 05/07/25 14:51 Hgb 13.10 g/dL (11.27-16.99) 05/07/25 14:51 Hct 38.7 % (36-47) 05/07/25 14:51 MCV 86.4 fl (85-98) 05/07/25 14:51 MCH 29.2 pg (27-33) 05/07/25 14:51 MCHC 33.9 g/dL (30-55) 05/07/25 14:51 RDW 12.5 % (12.1-15.1) 05/07/25 14:51 Plt Count 375 10^3/cmm (157-399) 05/07/25 14:51 MPV 9.6 fL (7.4-10.4) 05/07/25 14:51 Neut % (Auto) 83.7 % 05/07/25 14:51 Lymph % (Auto) 12.5 % 05/07/25 14:51 [place] % (Auto) 2.7 % 05/07/25 14:51 Eos % (Auto) 0.0 % 05/07/25 14:51 Baso % (Auto) 0.2 % 05/07/25 14:51 Neut # (Auto) 16.00 10^3/uL (1.8-7.7) H 05/07/25 14:51 Lymph # (Auto) 2.4 10^3/uL (0.8-4.8) 05/07/25 14:51 [place] # (Auto) 0.5 10^3/uL (0.2-0.9) 05/07/25 14:51 Eos # (Auto) 0.0 10^3/uL (0.0-0.8) 05/07/25 14:51 Baso # (Auto) 0.0 10^3/uL (0.0-0.1) 05/07/25 14:51 Nucleated RBC % (auto) 0 % 05/07/25 14:51 Nucleated RBCs # 0.0 /100WBC 05/07/25 14:51 D-Dimer <= 0.27 ug/mLFEU (0-0.59) 05/07/25 14:51 Sodium 137 mmol/L (136-145) 05/07/25 14:51 Potassium 3.5 mmol/L (3.5-5.1) 05/07/25 14:51 Chloride 96 mmol/L (98-107) L 05/07/25 14:51 Carbon Dioxide 23 mmol/L (22-29) 05/07/25 14:51 Anion Gap 21.5 (5-19) H 05/07/25 14:51 BUN 12 mg/dL (6-20) 05/07/25 14:51 Creatinine 1.1 mg/dL (0.5-0.9) H 05/07/25 14:51 GFR Calculation 51.2 mL/min (90-130) L 05/07/25 14:51 Glucose 160 mg/dL (65-115) H 05/07/25 14:51 Calculated Osmolality 287 mOsm/kg (285-295) 05/07/25 14:51 Calcium 10.4 mg/dL (8.5-10.5) 05/07/25 14:51 Total Bilirubin 0.5 mg/dL (0.15-1.2) 05/07/25 14:51 AST 13 U/L (0-32) 05/07/25 14:51 ALT 19 U/L (0-33) 05/07/25 14:51 Alkaline Phosphatase 59 U/L (35-105) 05/07/25 14:51 Troponin T Baseline < 6 ng/L (0-10) 05/07/25 14:51 Total Protein 7.2 g/dL (6.6-8.7) 05/07/25 14:51 Albumin 4.7 g/dL (3.5-5.2) 05/07/25 14:51 Globulin 2.5 g/dL (1.3-4.6) 05/07/25 14:51 Lipase 21 U/L (13-60) 05/07/25 14:51 All radiology interpretation(s) finalized by discharge EKG Data EKG 1: I personally reviewed and interpreted this EKG as follows: EKG interpretation date: 08/15/25 EKG interpretation time: 14:26 Interpretation: sinus tach hr [address] depression in v4-v6 qrs 77 qtc 375 EKG 2: I personally reviewed and interpreted this EKG as follows: EKG interpretation date: 05/07/25 EKG interpretation time: 14:52 Interpretation: sinus tach hr [address] depression in v4-6 qrs 74 qtc 380 Discharge Plan Discharge Patient Disposition: Admitted As Inpatient Clinical Impression: Chest pain Condition: Stable Coding Level of Care Code ED Statistics Manager for Regino Ta
--- NOTE | 2025-05-07 14:52 | ECG_ITS ---
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 Measurements Intervals [place] Rate: 115 P: 58 MD: 150 QRS: 26 QRSD: 74 T: 47 QT: 312 QTc: 433 Interpretive Statements SINUS TACHYCARDIA POSSIBLE LEFT ATRIAL ENLARGEMENT [-0.1mV P-WAVE IN V1/V2] MILD ST DEPRESSION [0.05+ mV ST DEPRESSION] Compared to ECG 05/07/2025 14:26:48 No significant changes Electronically Signed On 05-09-2025 17:11:58 CDT by Juan Pablo Capps M.D. [email or web address]
[2025-05-07] MEDS: ondansetron 2 mg/ML SDV 2 mL 4 MG IVP (14:58)
[2025-05-07 14:59] LABS: Hematocrit 38.7 % (36-47); Hemoglobin 13.10 g/dL (11.27-16.99); Mean Corpuscular HGB Conc 33.9 g/dL (30-55); Mean Corpuscular Hemoglobin 29.2 pg (27-33); Mean Corpuscular Volume 86.4 fl (85-98); Nucleated Red Blood Cells % 0 %; Platelet Count 375 10^3/cmm (157-399); Red Blood Count 4.48 10^6/uL (3.85-5.65); White Blood Count 19.11 10^3/uL (3.29-11.43)
[2025-05-07] MEDS: morphine 4 mg/mL SDV 1 mL IVP (15:00)
--- NOTE | 2025-05-07 15:03 | PC.NURSE ---
THIS NURSE WENT OUT TO THE LOBBY TO PULL ANOTHER PATIENT BACK. WHILE WAITING TO PULL ANOTHER PATIENT BACK, THIS NURSE WITNESSED THE PATIENT SPEAKING TO THE TRIAGE NURSE REGARDING WHEN SHE WOULD GET A ROOM. THIS NURSE THEN WITNESSED THE CONVERSATION END AND THE TRIAGE DOOR SHUT. REGISTRATION THEN APPROACHED PATIENT TO HAVE HER SIGN SOME PAPERWORK. PATIENT STATED NO, I WILL NOT SIGN THAT. I DO NOT HAVE A ROOM. SHE DOES NOT THINK MY CHEST PAIN IS EMERGENT. SHE THINKS IT IS ANXIETY. PATIENT OFFERED TO SIGN FORMS. PATIENT STATED NO, DO NOT SIGN THOSE. AT THIS POINT, THIS NURSE, THE CHARGE NURSE, STEPPED IN AND ASKED THE PATIENT IF THERE WAS ANYTHING THIS NURSE COULD HELP HER WITH. PATIENT RESPONDED NO. I JUST DO NOT THINK THAT I WAS HANDLED APPROPRIATE. SHE TOLD ME THAT MY HEART RATE WAS HIGH BECAUSE OF ANXIETY. I KNOW IT IS NOT ANXIETY. 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 I FEEL LIKE AN ELEPHANT IS SITTING ON MY CHEST. I TOOK 2 NITROGLYCERINS AT HOME AND THE PAIN GOT BETTER. BUT MY CHEST PAIN AND HIGH HEART RATE IS ANXIETY RELATED. SO NO, I UNDERSTAND AND DO NOT NEED ANYTHING FROM YOU. I NEED A ROOM. NOT TO GO BACK TO THE WAITING ROOM. I NEED MY LABS. THIS NURSE VERBALIZED UNDERSTANDING OF THE PATIENT'S CONCERNS AND EDUCATED THE PATIENT OF THE PROCESS OF TRIAGE AND ACUITY LEVELS FOR PATIENTS. THIS NURSE EDUCATED PATIENT THAT WHILE SHE WAS WAITING IN THE WAITING ROOM, LABS WILL BE DRAWN AND SHE HAD ALREADY GOTTEN HER INITIAL EKG AND IT WAS ALREADY TAKEN TO A PHYSICIAN. PATIENT STATED I UNDERSTAND. BUT WHERE IS THE LAB WORK? AND MOTIONS TO THERE NOT BEING ANY PHLEBOTOMY TECHS AROUND. THIS NURSE INFORMED PATIENT THAT SHE WOULD HAVE TO HAVE ORDERS PUT IN, BUT THERE WOULD BE SOME TO GET HER BLOOD SOON. PATIENT CONTINUED TO BARRICADE THE TRIAGE DOOR AND REFUSE TO GO TO THE WAITING ROOM. PATIENT STATED I DID NOT EVEN WANT TO COME HERE. MY SAID HE WAS NOT COMFORTABLE DRIVING ME ANYWHERE BUT HERE. SO HERE I AM. I JUST FEEL LIKE THE WAY THAT NURSE TREATED ME IN TRIAGE WAS INAPPROPRIATE. THAT IS WHY I AM FRUSTRATED. AT THIS TIME, RECORD LABEL INTERN INFORMED THIS NURSE THAT SHE WAS GOING TO TAKE PATIENT BACK TO A ROOM. WHILE WALKING TO ROOM 6, PATIENT REFUSED A WHEELCHAIR. PATIENT STUMBLED IN FRONT OF THE BATHROOMS BESIDE ROOM 4 AND HAD HER HELP GET HER UP. PATIENT STILL REFUSED TO GET IN A WHEELCHAIR. PATIENT WAS PLACED IN ED 6 AND WAS HOOKED UP TO VITALS AND CARDIAC MONITORING.
[2025-05-07 15:17] LABS: Alanine Aminotransferase 19 U/L (0-33); Albumin Level 4.7 g/dL (3.5-5.2); Alkaline Phosphatase 59 U/L (35-105); Anion Gap 21.5 (5-19); Aspartate Amino Transferase 13 U/L (0-32); Blood Urea Nitrogen 12 mg/dL (6-20); Calcium 10.4 mg/dL (8.5-10.5); Carbon Dioxide 23 mmol/L (22-29); Chloride 96 mmol/L (98-107); Creatinine Clr Calc Pharmacy 53.6059; Globulin 2.5 g/dL (1.3-4.6); Glucose 160 mg/dL (65-115); Lipase 21 U/L (13-60); Osmolality Calculated 287 mOsm/kg (285-295); Potassium 3.5 mmol/L (3.5-5.1); Sodium 137 mmol/L (136-145); Total Protein 7.2 g/dL (6.6-8.7)
[2025-05-07 15:22] LABS: Troponin(5th) Baseline < 6 ng/L (0-10)
[2025-05-07] MEDS: HYDROmorphone 0.5 MG/0.5 ML INJ 1 MG IVP (15:33)
--- NOTE | 2025-05-07 15:52 | USCV_ITS ---
Evy Shaw Age: 55 Gender: F : 1970 Exam Date: 05/07/2025 18:34 Ordering Phys: Sharon Desai MD Technologist: Alfred Tracey Exam Location: [facility] [place] Indication: chest pain BP: 162 / 76 HR: 89 Rhythm: Sinus Technical Quality: Adequate MEASUREMENTS (Male / Female) Normal Values 2D ECHO LV Diastolic Diameter PLAX 4.0 cm 4.2 - 5.9 / 3.9 - 5.3 cm IVS Diastolic Thickness 1.0 cm 0.6 - 1.0 / 0.6 - 0.9 cm IVS Systolic Thickness 1.3 cm LVPW Diastolic Thickness 1.0 cm 0.6 - 1.0 / 0.6 - 0.9 cm LVPW Systolic Thickness 1.5 cm LVOT Diameter 2.0 cm LV Ejection Fraction 2D Teich 63.2 % LV Ejection Fraction MOD 4C 62.5 % LV Ejection Fraction MOD 2C 60.1 % LV Ejection Fraction 2C AL 64.0 % LA Diameter 3.4 cm RA Systolic Volume 4C AL 19.9 ml RA Systolic Volume 4C MOD 19.4 ml LA Sys Volume AL 26.1 cm cubed LA Sys Volume Index AL 14.2 cm cubed/m squared Aorta at Sinotubular Diameter 2.3 cm IVC Diameter 1.3 cm M-MODE LA Ao Ratio MM 1.4 AV Cusp Separation MM 1.5 cm DOPPLER AV Peak Velocity 153.0 cm/s LVOT Peak Velocity 131.0 cm/s AV Area Cont Eq vti 2.5 cm squared AV Area Cont Eq pk 2.8 cm squared MV Peak Velocity 112.0 cm/s MV Area PHT 5.0 cm squared Mitral E to A Ratio 0.7 TV Peak Velocity 194.5 cm/s TR Peak Velocity 260.0 cm/s TR Peak Gradient 27.0 mmHg TR Mean Velocity 222.0 cm/s TR Mean Gradient 21.3 mmHg TR Velocity Time Integral 54.2 cm PV Peak Velocity 111.0 cm/s RV Ejection Time 0.2 s FINDINGS Left Ventricle Normal left ventricular cavity size. Normal left ventricular wall thickness. Hyperdynamic left ventricular systolic function. Left ventricular ejection fraction is visually 75%. Normal diastolic function. Right Ventricle Normal right ventricular size and systolic function. Right Atrium Normal right atrial size. Left Atrium Normal left atrial size. Mitral Valve Structurally normal mitral valve. No mitral valve stenosis. No mitral valve regurgitation. Aortic Valve No aortic valve stenosis. No aortic valve regurgitation. Tricuspid Valve No tricuspid valve stenosis. Trace tricuspid valve regurgitation. Normal pulmonary pressure. Pulmonic Valve No pulmonary valve stenosis. No pulmonary valve regurgitation. Pericardium No pericardial effusion. Aorta Normal size aortic root and proximal ascending aorta. IVC Normal inferior vena cava. CONCLUSIONS 1. Normal LV size. Hyperdynamic LV systolic function. EF 75%. 2. Normal RV size and function. 3. No significant valvular abnormalities Juan Pablo Capps MD, FACC (Electronically Signed) Final Date: 08 May 2025 09:39 S
--- NOTE | 2025-05-07 15:52 | PM.HP ---
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 She states that she was at work and felt nauseated. She broke out in a sweat. Later when she came home she took Phenergan and because she was having chest pressure which was radiating up her neck she took 2 nitros and found some relief. That is when she realized that this is a different type of chest pain and she needs to go to the hospital. She states she has had H. pylori before and lots of GERD and therefore has taken Protonix 40 twice daily in the past has also taken Carafate. To her this does not feel like an esophageal spasm or GERD related pain. She states from her GERD she normally has epigastric tenderness which is present today as well however that is there at baseline. This chest pain that she has feels different. She also took a Klonopin 1 mg at home to rule out anxiety. Klonopin did not take the pain away. She states she also tried a GI cocktail however that did not help. Patient is a very good historian. She states she has had stress test in the past however they have been normal. Family history consists of father having heart disease in his 30's who with an MA at age 64. Her older brother has 15 stents states her older brother has 15 stents. At this time patient feels quite worried about this. She also reports to me that she has EKG changes this time. ER course: Initial troponin less than 6, D-dimer less than 0.[address] depressions in lateral leads. WBC 19,000. Chest x-ray negative. Medications/Allergies Home Medications ?Medication ?Instructions ?Recorded ?Confirmed ?Last Taken ?Type aspirin 81 mg tablet,delayed 81 mg PO BEDTIME 12/25/22 12/24/24 11/15/24 History release (Adult Low Dose Aspirin) Held on 11/17/24. Instructions: Resume on 11/18/24. calcium carbonate 500 mg PO BEDTIME 01/31/23 12/24/24 11/15/24 History flaxseed oil 1,000 mg capsule 1,000 mg PO BEDTIME 01/31/23 12/24/24 11/15/24 History omega-3 fatty acids-fish oil 684 1 cap PO BEDTIME 01/31/23 12/24/24 11/15/24 History mg-1,200 mg capsule,delayed release CPAP 6-16cm mmHg setting #1 ea 05/06/24 12/24/24 Unknown Rx CPAP mask, tubing, supplies #1 ea 05/06/24 12/24/24 Unknown Rx hydrocodone 10 mg-acetaminophen 1 tab PO Q8H PRN pain 7 days #21 07/23/24 12/24/24 2 Months Ago Rx 325 mg tablet tabs ~09/16/24 albuterol sulfate 90 mcg/actuation 2 puff inhalation QID PRN 09/17/24 12/24/24 5 Months Ago Rx aerosol inhaler Shortness Of Breath #6.7 grams ~06/17/24 gabapentin 300 mg capsule 300 mg PO BID #180 caps 09/17/24 12/24/24 11/16/24 Rx cyclobenzaprine 10 mg tablet 10 mg PO TID 30 days #90 tabs 10/29/24 12/24/24 11/16/24 Rx tizanidine 4 mg capsule 4 mg PO BID PRN muscle spasticity 12/15/24 12/24/24 Unknown Rx #30 caps cetirizine 10 mg tablet (Zyrtec) 10 mg PO DAILY #90 tabs 01/21/25 Unknown Rx pantoprazole 40 mg tablet,delayed 40 mg PO DAILY #90 tabs 02/26/25 Unknown Rx release (Protonix) enalapril maleate 20 mg tablet 20 mg PO QAM #90 tabs 03/16/25 Unknown Rx metoprolol tartrate 50 mg tablet 50 mg PO BID #180 tabs 03/22/25 Unknown Rx clonazepam 1 mg tablet 1 mg PO DAILY PRN Anxiety #30 tabs 04/27/25 Unknown Rx duloxetine 60 mg capsule,delayed 60 mg PO DAILY #90 caps 04/27/25 Unknown Rx release hydrochlorothiazide 25 mg tablet 25 mg PO DAILY #90 tabs 04/27/25 Unknown Rx ropinirole 0.5 mg tablet 0.5 mg PO DAILY #90 tabs 04/27/25 Unknown Rx Allergies Allergy/AdvReac Type Severity Reaction Status Date / Time No Known Allergies Allergy Verified 03/30/25 18:14 PFSH Acute PFSH: Medical History (Updated 05/07/25 @ 16:34 by Sharon Desai MD) MARITZA (obstructive sleep apnea) Tobacco use disorder Chronic neck pain GERD without esophagitis Anxiety and depression Hypertension Surgical History History of hysterectomy Hx of appendectomy History of cholecystectomy Family History Father Congestive heart failure (CHF) Mother Diabetes Hypertension Cancer Breast Social History Smoking and tobacco/nicotine status: current every day tobacco/nicotine user cigarettes Packs smoked per day: 0.25 Quit status (tobacco/nicotine): considering quitting Second hand smoke exposure: No Alcohol intake: current Alcohol intake frequency: few times a week Substance/Drug Use: never Adopted: No Lives independently: Yes Household members: spouse Marital status: Number of children: 4 Number of grandchildren: 3 service: Yes branch: [employer] 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 Family ember at bedside. Patient appears slightly anxious. HEENT: Normocephalic, atraumatic, EOMI, breathing room air. Cardio: Regular rate rhythm, normal S1-S2, no gross murmurs evident. Respiratory: Clear to auscultation bilaterally no wheezes no rhonchi GI: Abdomen soft, epigastric area mildly tender to palpation, nondistended, bowel sounds + Extremities: Trace edema bilateral lower extremities. Data 05/07/25 14:51 05/07/25 14:51 A&P Assessment and plan 1. Chest pain: 2. Hypertension: 3. Stable angina: 4. Anxiety and depression: 5. GERD without esophagitis: 6. MARITZA (obstructive sleep apnea): 7. Tobacco use disorder: Plan: #Chest pain, typical/stable angina #History of polymyalgia rheumatica #GERD #History of anxiety #Leukocytosis #Obstructive sleep apnea #Smoker #Hypertension ? Chest pain seems to be typical as it was relieved by nitro and it is described as a pressure in her chest radiating to her neck bilaterally. Klonopin, GI cocktail, Phenergan did not relieve the pain. This may be stable angina. She also noticed when she walked into the ER the pain was worse upon walking. At rest pain is better. Last stress test was in 2022 with EF of 91% no gross wall motion abnormalities. EKG today shows mild ST depressions in lateral leads. We will check serial EKGs. Check echocardiogram. Consult cardiology. Discussed with Dr. Capps she will see patient in consultation. She does have a history of anxiety however cardiac cause. At this time for chest pain as per my assessment. She will need further workup. ? Continue aspirin, add Plavix 300 x 1, 75 daily thereafter ? Continue metoprolol to tartrate 50 twice daily ? Creatinine 1.1, at baseline ? D-dimer negative ? Leukocytosis 19,000, possibly reactive versus true infection. No clinical evidence of infection at this time. ? Patient slightly tachycardic most likely secondary to being anxious?. Continue to monitor ? Continue troponin series. ? I will hold off on anticoagulating this patient. Will wait for cardiology recommendations Full code DVT prophylaxis: Heparin SQ twice daily Will order home medications once med rec has been completed. PDMP PDMP Reviewed: Not Reviewed Attestations Medical Necessity Statement*: stable angina, > 2 midnight stay Diagnoses Chest pain R07.9 Hypertension I10 Stable angina I20.89 Anxiety and depression F41.9; F32.A GERD without esophagitis K21.9 MARITZA (obstructive sleep apnea) G47.33 Tobacco use disorder F17.200
[2025-05-07] MEDS: LORazepam 1 MG/0.5 ML injection 0.5 MG IVP (16:29)
--- NOTE | 2025-05-07 17:01 | PM.CONSULT ---
Providers/Reason For Consult Consulting Physician/Specialty*: Cardiology Reason for Consult*: Chest pain Requesting Physician: Dr. Desai Primary Care Provider: Hillary Martínez DO History of Present Illness History of Present Illness Evy Shaw is a 55 year old female with a history of hypertension, polymyalgia rheumatica, anxiety, gastritis, peptic ulcer disease, very strong family history of premature coronary artery disease who smokes cigarettes. Patient presents to the emergency room for anterior chest pain somewhat relieved with sublingual nitroglycerin. 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 She states that her father had his first myocardial infarction in his late 40s and ultimately of coronary artery disease in his 60s. Her paternal uncles also have had coronary percutaneous intervention. Her brother has had approximately 15 stents placed. She was evaluated a few years ago for chest pain and a stress test was negative for inducible ischemia. Today she was at work when she started to feel nauseous with associated diaphoresis. She then started to feel anterior chest discomfort that ultimately radiated to her jaw and also traveled down her left arm. She took a Klonopin at home which did not help with her discomfort. She had a nitroglycerin at home which she took which did help with her discomfort. She still having mild discomfort in her chest. She has a history of hyperlipidemia and continues to smoke cigarettes. She does not take statin therapy due to having chronic generalized aching from her polymyalgia rheumatica. She has no tenderness in her chest to palpation. She does take red yeast rice for her cholesterol. Review of Systems Eyes: Denies: change in vision or blurry vision Card: Reports: edema; Denies: palpitations, irregular heart rhythm, lightheadedness or syncope Resp: Denies: dyspnea Endo: Reports: excessive sweating Medications/Allergies Home Medications ?Medication ?Instructions ?Recorded ?Confirmed ?Last Taken ?Type calcium carbonate 500 mg PO BEDTIME 01/31/23 05/07/25 05/06/25 History omega-3 fatty acids-fish oil 684 1 cap PO BEDTIME 01/31/23 05/07/25 05/06/25 History mg-1,200 mg capsule,delayed release CPAP 6-16cm mmHg setting #1 ea 05/06/24 05/07/25 Unknown Rx CPAP mask, tubing, supplies #1 ea 05/06/24 05/07/25 Unknown Rx albuterol sulfate 90 mcg/actuation 2 puff inhalation QID PRN 09/17/24 05/07/25 5 Months Ago Rx aerosol inhaler Shortness Of Breath #6.7 grams ~06/17/24 cetirizine 10 mg tablet (Zyrtec) 10 mg PO DAILY #90 tabs 01/21/25 05/07/25 05/07/25 Rx enalapril maleate 20 mg tablet 20 mg PO QAM #90 tabs 03/16/25 05/07/25 05/07/25 Rx metoprolol tartrate 50 mg tablet 50 mg PO BID #180 tabs 03/22/25 05/07/25 05/07/25 Rx clonazepam 1 mg tablet 1 mg PO DAILY PRN Anxiety #30 tabs 04/27/25 05/07/25 Unknown Rx duloxetine 60 mg capsule,delayed 60 mg PO DAILY #90 caps 04/27/25 05/07/25 05/07/25 Rx release hydrochlorothiazide 25 mg tablet 25 mg PO DAILY #90 tabs 04/27/25 05/07/25 05/07/25 Rx ropinirole 0.5 mg tablet 0.5 mg PO DAILY #90 tabs 04/27/25 05/07/25 05/06/25 Rx carisoprodol 350 mg tablet 350 mg PO TID 05/07/25 05/07/25 05/07/25 History cholecalciferol (vitamin D3) 25 25 mcg PO DAILY 05/07/25 05/07/25 05/07/25 History mcg (1,000 unit) tablet (Vitamin D3) hydrocodone 7.5 mg-acetaminophen 1 tab PO Q4H PRN Pain 05/07/25 05/07/25 Unknown History 325 mg tablet pantoprazole 40 mg tablet,delayed 40 mg PO BID 05/07/25 05/07/25 05/07/25 History release prednisone 20 mg tablet 20 mg PO DAILY 05/07/25 05/07/25 05/07/25 History prednisone 5 mg tablet 50 mg PO DAILY 05/07/25 05/07/25 05/07/25 History Allergies Allergy/AdvReac Type Severity Reaction Status Date / Time No Known Allergies Allergy Verified 03/30/25 18:14 PFSH Acute PFSH: Medical History (Updated 05/07/25 @ 17:09 by Juan Pablo Capps MD) MARITZA (obstructive sleep apnea) Tobacco use disorder Chronic neck pain GERD without esophagitis Anxiety and depression Hypertension Surgical History History of hysterectomy Hx of appendectomy History of cholecystectomy Family History Father Congestive heart failure (CHF) Mother Diabetes Hypertension Cancer Breast Social History Smoking and tobacco/nicotine status: current every day tobacco/nicotine user cigarettes Packs smoked per day: 0.25 Quit status (tobacco/nicotine): considering quitting Second hand smoke exposure: No Alcohol intake: current Alcohol intake frequency: few times a week Substance/Drug Use: never Adopted: No Lives independently: Yes Household members: spouse Marital status: Number of children: 4 Number of grandchildren: 3 service: Yes branch: [employer] Current occupational status: employed 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 [employer] Current occupational exposures/hazards: No Pets and animals: No Sexually active: Yes Do you think of yourself as: Straight/Heterosexual Current gender identity: Female Female Reproductive History: Spontaneous abortions: No Vitals/I&O/Wt Last Vital Signs Temp 98.6 F 05/07/25 14:30 Pulse 115 H 05/07/25 14:30 Resp 18 05/07/25 15:00 BP 156/83 05/07/25 14:30 Pulse Ox 100 05/07/25 15:00 O2 Del Method Room Air 05/07/25 14:30 Weight last 48 hrs Weight 166 lb Physical Exam Narrative: General: Anxious due to her chest discomfort Neck: No jugular venous distention or carotid bruits Heart: Normal S1 and S2 with a regular rate and rhythm, no cardiac murmurs Lungs: Normal respiratory effort with no use of intercostal muscles, clear lungs sounds to auscultation Extremities: No lower extremity edema Neuro: Alert and oriented x 3 Data 05/07/25 14:51 05/07/25 14:51 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 Compared to EKG from 08/2024, the ST depression is new. A&P Assessment and plan 1. Unstable angina: 2. Hypertension: 3. Hyperlipidemia: 4. Family history of premature coronary artery disease: 5. Tobacco use disorder: Plan: Patient is having symptoms of unstable angina. She certainly has significant risk factors to have obstructive coronary artery disease. She has had 2 negative troponins however EKG is consistent with anterolateral ischemia. ? Start Nitropaste half inch every 6 hours ? Continue metoprolol tartrate 50mg bid and aspirin 81mg daily ? Start clopidogrel as ordered by hospitalist 300 mg x 1 ? Start IV heparin ? Will arrange for left heart catheterization with Dr. CALL ? Check fasting lipid panel ? Check echocardiogram - Started discussion of smoking cessation with patient ? Discussed with Dr. Desai (Hospitalist) PDMP PDMP Reviewed: Not Reviewed Coding Level of Care Code 02478 Diagnoses Unstable angina I20.0 Hypertension I10 Hyperlipidemia E78.5 Family history of premature coronary artery disease Z82.49 Tobacco use disorder F17.200
[2025-05-07 17:05] LABS: Troponin 5 2HR < 6.0 ng/L (0-10); Troponin 5 2HR Delta 0 ABS# (0-10)
[2025-05-07 17:15] LABS: Thyroid Stimulating Hormone 0.72 uIU/mL (0.27-4.20)
[2025-05-07] MEDS: nitroglycerin 1 gm/inch oint Pkt 1 INCH TOPICAL (17:44)
--- NOTE | 2025-05-07 17:45 | PC.NURSE ---
UPON CALLING THE PATIENT'S NAME FOR TRIAGE, PATIENT ENTERED THE TRIAGE ROOM WITH THIS NURSE. THIS NURSE INTRODUCED HERSELF TO THE PATIENT AND ASKED IF SHE WAS HAVING CHEST PAIN (DUE TO CHIEF COMPLAINT), WHEN PATIENT STEPPED INTO THE ROOM SHE SAID THE ROOM SMELT OF FOOD AND THAT SHE WAS GOING TO THROW UP. I INFORMED PATIENT THERE WAS NO FOOD IN THE ROOM BUT THAT I COULD SPRAY A ROOM DEODORIZER IF THAT WOULD HELP HER NAUSEA. PATIENT DECLINED AND SEEMED IRRITATED AND STATED, NO ITS FINE . I BEGAN HOOKING PATIENT UP TO EKG IMMEDIATELY SHE TOLD ME ABOUT HER MEDICAL HISTORY AND STATED SHE TOOK 2 NITRO AT HOME WITH SOME RESOLVE BUT CAME BACK EVEN WORSE AND THEN STATED SHE USUALLY FEELS LIKE CRAP AND HAS A HEADACHE AFTER TAKING NITRO AND SHE DID NOT THIS TIME SO SHE KNEW IT WAS SOMETHING MORE. PATIENT ALSO REPORTED SHE TRIED TAKING HER ALBUTEROL INHALER AND HAD NO RESOLVE AND THEN TOOK A KLONOPIN INCASE IT WAS ANXIETY. PATIENT WAS RESTLESS DUE TO THE PAIN AND MOVED ALOT DURING TRIAGE WHICH MADE THINGS DIFFICULT TO FINISH THE EKG. PATIENT ASKED WHAT HER HEART RATE WAS AND I RESPONDED AND SAID, IT IS A LITTLE BIT HIGH BUT YOU HAVE ALSO HAD ALBUTEROL BEFORE COMING IN AND SOMETIMES THAT CAN INCREASE HEART RATE. PATIENT WAS TEARFUL, HYPERVENTILATING AND STATED IM JUST SO SCARED RIGHT NOW . I TOLD PATIENT IN A VERY CALM AND REASSURING WAY, THIS MAY MAKE YOU FEEL BETTER BUT NOT EVERYONE HAS THE SAME SIDE EFFECTS FROM NITRO, SO YOU MAY OR MAY NOT GET A HEADACHE FROM IT AND TRY NOT TO THINK OF THE BAD RIGHT NOW. TRY TO SLOW YOUR BREATHING AND TAKE SOME GOOD BREATHS BECAUSE I THINK YOU MIGHT BE PANICKING A LITTLE BIT. I WANT TO MAKE SURE THE EKG IS THE MOST ACCURATE WE CAN GET IT SINCE YOU ARE IN A LOT OF PAIN . PATIENT RESPONDED VERY UPSET, AND STATED THIS IS NOT FROM THE ALBUTEROL, IT DOES NOT INCREASE MY HEART RATE, AND THIS IS NOT ANXIETY. I HAVE HAD CHEST PAIN BEFORE AND THIS IS NOT THE SAME. I HAVE NEVER FELT LIKE THIS BEFORE. I FINISHED EKG, PRINTED IT, AND ASKED PATIENT TRIAGE QUESTIONS. PATIENT SEEMED TO BE DEFENSIVE WITH MOST OF THE QUESTIONS. I ASKED PATIENT IF SHE WAS HAVING NAUSEA OR IF SHE HAD BEEN VOMITING. PATIENT STATED SHE IS NOT ALLOWING HERSELF TO THROW UP RIGHT NOW. I RESTATED THE QUESTION AND ASKED HER IF SHE HAD BEEN PREVIOUSLY VOMITING AND SHE RESPONDED, I JUST SAID I AM NOT A GOOD PUKER. I WILL PISS MY PANTS IF I THROW UP AND I AM ABOUT TO THROW UP . I TOLD PATIENT (TRYING TO BE HELPFUL AND TO AVOID HER EMBARRASSMENT), I MAY HAVE A DEPENDS OR A PAD IF THAT WOULD HELP IN CASE YOU DO THROW UP . PATIENT GOT UPSET AND SAID, NO I JUST NEED TO THROW UP IN THE BATHROOM, FINISH YOUR QUESTIONS AND TRIAGE ME, DO NOT WORRY ABOUT THAT . I RESPONDED, OKAY . WE FINISHED THE TRIAGE, AND PATIENT CONTINUED TO BE VERY PASSIVE AGGRESSIVE. I TRIED TO AFFIRM WHAT THE PATIENT WAS TELLING ME WITH UNDIVIDED ATTENTION AND ACKKNOWLEDGE TO HER THAT I WAS LISTENING TO HER AND TAKING IN EVERYTHING SHE REPORTED. I TOLD PATIENT WHILE EXITING THE TRIAGE ROOM, IM GOING TO PUT YOU OUT HERE FOR A MOMENT ...PATIENT CUT ME OFF AND DID NOT LET ME FINISH MY SENTENCE AND SAID FOR HOW LONG? I WON'T BE OUT HERE AND WILL BE LEAVING IF YOU ARE LETTING ME SIT OUT HERE. I RESPONDED TO THE PATIENT, I WAS ABOUT TO SAY, IM TAKING THE EKG STRAIGHT TO THE DOCTOR AND TALING WITH THE CHARGE NURSE TO GET YOU A ROOM NOW. PATIENT BEGAN YELLING AND STATING SHE WOULD BE LEAVING AND I REITERATED THAT I WAS TAKING THE EKG TO THE DOCTOR AND CLOSED THE TRIAGE DOOR AND WENT TO GIVE IT TO HIM. I INFORMED DR. TAVERAS OF WHAT I SEEN ON EKG, HANDED HIM EKG, AND STATED HER TRIAGE TO HIM. HE STATED THE PATIENT NEEDED TO COME BACK AND I IMMEDIATELY WENT TO GET HER FROM THE WAITING ROOM AFTER CHECKING BED STATUS AND DECIDING ON ROOM 6, THE MORE APPROPRIATE OF THE TWO ROOMS, GIVEN THE OPTION ROOM 6 OR ROOM 8. I WALKED TO THE WAITING ROOM WHERE I SEEN DINA CHARGE NURSE, ATTEMPTING TO DE-ESCALATE THE PATIENT. SHE WAS YELLING AT REGISTRATION THAT SHE WOULD NOT SIGN PAPERWORK AND YELLING AT HER THAT HE BETTER NOT SIGN ANY PAPERWORK EITHER. I TOLD DINA I WAS GOING TO TAKE HER BACK TO ROOM 6. I ASKED PATIENT TO FOLLOW ME TO ROOM 6. PATIENT WAS OFFERED A WHEELCHAIR BY MULTIPLE STAFF INCLUDING CHARGE NURSE AND REGISTRATION IN WHICH SHE DECLINED. PATIENT WALKED WITH BACK TO ROOM 6 WHEN SHE STUMBLED AND APPEARED TO FALL INTO THE WALL ACROSS FROM ROOM 4. HER YELLED, I TURNED AROUND AND ASSISTED HER AND ASKED HER AGAIN IF WE NEED TO GET HER A WHEEL CHAIR. SHE STATED TO THIS NURSE, OH NO, YOU'VE ALREADY MADE IT CLEAR . I ASKED THE PATIENT WHAT I MADE CLEAR AND SHE STATED, THAT THIS IS ALL JUST ANXIETY AND NOT EMERGENT . UPON ENTERING ROOM 6, I ASKED PATIENT TO GET ONTO THE STRETCHER SO I COULD HOOK HER UP TO THE MONITOR. PATIENT STATED, WHAT MONITOR . I RESPONDED, THE MARKETING FINANCIAL ANALYST . I THEN ASKED PATIENT, HAVE I DONE SOMETHING TO OFFEND YOU ? PATIENT STATED, YOU TOLD ME THAT I WAS JUST HAVING ANXIETY AND THIS IS NOT ANXIETY. I STATED, NO MA'AM, I STATED THAT I FELT YOU WERE PANICKING IN THAT MOMENT AND WANTED TO REASSURE YOU BECAUSE PANICKING AND HYPERVENTILATING IN THAT MOMENT WAS ONLY GOING TO MAKE THE SITUATION WORSE . PATIENT STATED THAT WAS NOT TRUE AND I TOLD HER SHE WAS NOT EMERGENT. PATIENT'S THEN TOLD HER, SHE DID SAY THAT. SHE TOLD YOU SHE FELT LIKE YOU WERE PANICKING A LITTLE BIT . PATIENT BEGAN YELLING AT HER AND BECOMING VERY AGGRESSIVE TOWARDS HIM. NATHAN RN, AND DR. JOHNSON WALKED INTO THE ROOM AND PATIENT THEN SAID, ON TOP OF ALL OF THAT YOU STICK ME IN A ROOM THAT ISN'T EVEN FOR CHEST PAIN. THIS IS NOT APPROPRIATE AND THIS IS WHY I DID NOT WANT TO COME HERE. PATIENT WAS CRYING AND HYPERVENTILATING AND HAD ONE LEG HANGING OFF THE BED. PATIENT REFUSED TO GET COMPLETELY ON THE BED. AT THIS TIME I EXITED THE ROOM AND REPORTED SITUATION TO DR. TAVERAS AND CHARGE NURSE.
[2025-05-07] MEDS: heparin 5,000 unit/mL INJ 1 mL IVP (19:37)
[2025-05-07] MEDS: heparin drip 25,000 UNIT/500 ML PREMIX 21.08 UNIT IV (19:40)
[2025-05-07] MEDS: nitroglycerin drip 50 MG/250 ML PREMIX IV (20:19)
--- NOTE | 2025-05-07 20:25 | ECG_ITS ---
[facility] Test Date: 2025-05-07 Pat Name: Evy Shaw Department: Room: 104 Gender: Female Script Writer: : 1970 Requested By: Alfred Arroyo Order Number: [id number] Richi MD: Juan Pablo Capps M.D. Measurements Intervals [place] Rate: 85 P: 46 AL: 124 QRS: 7 QRSD: 78 T: 53 QT: 350 QTc: 418 Interpretive Statements SINUS RHYTHM MILD ST DEPRESSION Compared to ECG 05/07/2025 14:52:27 Sinus tachycardia no longer present Electronically Signed On 05-09-2025 17:14:22 CDT by Juan Pablo Capps M.D. [email or web address]
--- NOTE | 2025-05-07 20:46 | W.PM.OPSUD ---
Surgery/Procedure H&P Update DATE OF PROCEDURE: May 07, 2025 DATE H&P PERFORMED: 05/07/25 H&P UPDATE INFORMATION: I have reviewed H&P completed within last 30 days, I have examined patient prior to procedure and No changes to prior documentation CHANGES TO PREVIOUS DOCUMENTATION: Dynamic EKG changes with recurrence of chest pain PREOP DIAGNOSIS: Unstable angina PRIMARY INDICATION FOR PROCEDURE: Unstable angina PATIENT REASSESSED PRIOR TO SEDATION, WITH NO CHANGE NOTED: Yes PHYSICAL EXAM: alert, oriented x 3, clear to auscultation bilaterally, regular rate & rhythm and operative site marked AIRWAY EVAL/ANESTHESIA PLAN: ASA II, Risks, benefits & alternatives of sedation and/or procedure discussed and Patient agrees to continue as planned ADDITIONAL INFORMATION: Patient has been explained all risk-benefit and alternative for the procedure. She understand 2% risk of stroke major bleed. She understand 5% risk of minor bleeding bruising infection hematoma pseudoaneurysm vascular or bypass surgery contrast-induced nephropathy. She fully understood along with the family and would like to proceed with it.
[2025-05-07 21:20] LABS: Troponin 5 6HR 6.82 ng/L (0-10); Troponin 5 6HR Delta 0.82001 ng/L (0-12)
--- NOTE | 2025-05-07 21:24 | PM.PROC ---
Procedure Note: Date of procedure: 05/07/25 Pre-procedure diagnosis: Unstable angina Post-procedure diagnosis: other Procedure: Left heart cath was performed Normal left main, LAD, LCx, RCA Hyperdynamic left ventricle with ejection fraction of 75% with mid cavity obliteration Diagnosis: Coronary spasm, rule out hypertrophic cardiomyopathy Plan: IV fluid 100 mL/h for 5 hours Continue aspirin beta-kaylene and nitro drip for chest pain and spasm Full note to be dictated Coding Level of Care Code Acute Code for Regino Ta
[2025-05-08] VITALS (8 sets, daily range): BP systolic 113–130; BP diastolic 58–94; PULSE 73–100; RESP 14–25; TEMP 36.2–36.7; O2SAT 96–99
[2025-05-08] MEDS: alum-mag-hydroxide-sime 30 mL UDC PO (03:13)
[2025-05-08 03:46] LABS: Hematocrit 36.8 % (36-47); Hemoglobin 12.10 g/dL (11.27-16.99); Mean Corpuscular HGB Conc 32.9 g/dL (30-55); Mean Corpuscular Hemoglobin 29.5 pg (27-33); Mean Corpuscular Volume 89.8 fl (85-98); Nucleated Red Blood Cells % 0 %; Platelet Count 335 10^3/cmm (157-399); Red Blood Count 4.10 10^6/uL (3.85-5.65); White Blood Count 14.86 10^3/uL (3.29-11.43)
[2025-05-08] MEDS: ondansetron 2 mg/ML SDV 2 mL 4 MG IVP (03:48)
[2025-05-08 04:15] LABS: Cholesterol 189 mg/dL (0-200); HDL Cholesterol 47 mg/dL (60-100); Triglycerides 144 mg/dL (0-150)
[2025-05-08 04:16] LABS: Chloride 103 mmol/L (98-107); Potassium 4.1 mmol/L (3.5-5.1); Sodium 140 mmol/L (136-145)
[2025-05-08] MEDS: morphine 4 mg/mL SDV 1 mL 2 MG IVP (04:45)
[2025-05-08 04:51] LABS: Anion Gap 18.1 (5-19); Blood Urea Nitrogen 12 mg/dL (6-20); Calcium 9.1 mg/dL (8.5-10.5); Carbon Dioxide 23 mmol/L (22-29); Creatinine Clr Calc Pharmacy 53.4445; Glucose 81 mg/dL (65-115); Magnesium 1.8 mg/dL (1.7-2.3); Osmolality Calculated 289 mOsm/kg (285-295)
[2025-05-08] MEDS: HYDROcodone-acetaminophen 5-325 mg Tablet 1 TAB PO ×3 (07:35→19:48)
--- NOTE | 2025-05-08 08:43 | PC.NURSE ---
Patient c/o persistent chest pain. S/p LHC with right radial access and no interventions done. Patient currently is on a nitro drip at 40mcg/min. Hydrocodone given as ordered. Informed Dr Desai of persistent pain
[2025-05-08] MEDS: lidocaine 2% viscous 15 ML, aluminum-mag hydrox-simethicon 30 ML, sucralfate oral liq 1 GM PO (11:13)
[2025-05-08] MEDS: LORazepam 1 MG/0.5 ML injection 0.5 MG IVP (11:14)
--- NOTE | 2025-05-08 12:29 | P.PN_ITS ---
Subjective 2 Subjective: Persistent nausea and intermittent chest discomfort throughout the night. Nursing staff noted patient anxiety overnight and this morning. Vitals/I&O/Wt Last Vital Signs Temp 97.7 F 05/08/25 03:13 Pulse 74 05/08/25 08:19 Resp 16 05/08/25 08:19 BP 130/77 05/08/25 03:13 Pulse Ox 99 05/08/25 08:19 O2 Del Method Room Air 05/08/25 08:19 05/07/25 05/08/25 05/08/25 22:59 06:59 14:59 Intake Total 497.567 / 097.841 1820.375 / 1521.942 45.25 / 45.25 Balance 497.567 / 647.075 5517.375 / 1521.942 45.25 / 45.25 Weight last 48 hrs Weight 165 lb Weight 166 lb Weight 166 lb Physical Exam 2 Narrative: General: Appears tense. Vomit bag on stomach Neck: No jugular venous distention or carotid bruits Heart: Normal S1 and S2 with a regular rate and rhythm, no cardiac murmurs Lungs: Normal respiratory effort with no use of intercostal muscles, clear lungs sounds to auscultation Extremities: No lower extremity edema Neuro: Alert and oriented x 3 Data 05/09/25 02:53 05/09/25 02:53 A&P Assessment and plan 1. Hypertension: Controlled BP 2. Hyperlipidemia: Controlled with Red Yeast rice - not on traditional statin due to generalized aching with polymyalgia rheumatica 3. Family history of premature coronary artery disease: 4. Tobacco use disorder: Smoking cessation encouraged 5. Chest pain: Initially thought to be possible unstable angina with mild ST depressions Trops negative x 3 and LHC with no CAD or visualized spasm Symptoms persistent and constant despite IV nitro overnight which goes angina ST-T changes can be present with GI issues Echo with normal wall thickness and hyperdynamic LVF with no regional WMA Symptoms more consistent with possible GI or anxiety etiology Stop IV nitro and heparin Continue Metoprolol and home antihypertensive meds Ok for discharge from cardiology standpoint PDMP PDMP Reviewed: Not Reviewed Attestations 2 Medical Necessity Statement*: on 05/08/2025, I documented patient was stable for discharge from a cardiology standpoint. Coding Level of Care Code 93584 Diagnoses Hypertension I10 Hyperlipidemia E78.5 Family history of premature coronary artery disease Z82.49 Tobacco use disorder F17.200 Chest pain R07.9
--- NOTE | 2025-05-08 12:55 | P.PN_ITS ---
Subjective 2 Subjective: seen today overnight pt experienced chest pain, nitro drip rate increased pt s/p cath: patent coronaries echo is pending still experiencing chest pain Vitals/I&O/Wt Last Vital Signs Temp 97.7 F 05/08/25 03:13 Pulse 74 05/08/25 08:19 Resp 16 05/08/25 08:19 BP 130/77 05/08/25 03:13 Pulse Ox 99 05/08/25 08:19 O2 Del Method Room Air 05/08/25 08:19 05/07/25 05/08/25 05/08/25 22:59 06:59 14:59 Intake Total 497.567 / 785.039 3160.375 / 1521.942 45.25 / 45.25 Balance 497.567 / 751.912 9518.375 / 1521.942 45.25 / 45.25 Weight last 48 hrs Weight 74.843 kg Weight 75.296 kg Weight 75.296 kg Physical Exam 2 Narrative: General: Alert oriented x3, patient seen in bed holding a vomit bag HEENT: Normocephalic, atraumatic, EOMI, breathing room air. Cardio: Regular rate rhythm, normal S1-S2, Respiratory: Clear to auscultation bilaterally no wheezes no rhonchi GI: Abdomen soft, epigastric area mildly tender to palpation, nondistended, bowel sounds + Extremities: Trace edema bilateral lower extremities. Data 05/08/25 02:53 05/08/25 02:53 A&P Assessment and plan 1. Chest pain: 2. Hypertension: 3. Stable angina: 4. Anxiety and depression: 5. GERD without esophagitis: 6. MARITZA (obstructive sleep apnea): 7. Tobacco use disorder: Plan: #Chest pain, typical/stable angina #History of polymyalgia rheumatica #GERD #History of anxiety #Leukocytosis #Obstructive sleep apnea #Smoker #Hypertension ? Chest pain seems to be typical as it was relieved by nitro and it is described as a pressure in her chest radiating to her neck bilaterally. Klonopin, GI cocktail, Phenergan did not relieve the pain. This may be stable angina. She also noticed when she walked into the ER the pain was worse upon walking. At rest pain is better. Last stress test was in 2022 with EF of 91% no gross wall motion abnormalities. EKG today shows mild ST depressions in lateral leads. We will check serial EKGs. Check echocardiogram. Consult cardiology. Discussed with Dr. Capps she will see patient in consultation. She does have a history of anxiety however cardiac cause. At this time for chest pain as per my assessment. She will need further workup. ? Continue aspirin, add Plavix 300 x 1, 75 daily thereafter ? Continue metoprolol to tartrate 50 twice daily ? Creatinine 1.1, at baseline ? D-dimer negative ? Leukocytosis 19,000, possibly reactive versus true infection. No clinical evidence of infection at this time. ? Patient slightly tachycardic most likely secondary to being anxious?. Continue to monitor ? Continue troponin series. ? I will hold off on anticoagulating this patient. Will wait for cardiology recommendations Full code DVT prophylaxis: Heparin SQ twice daily Will order home medications once med rec has been completed. 05/08/2025 stop nitro drip switch to imdur 30 daily order ativan 0.5 mg IV x1 Order GI Cocktail x 1 discussed with cardiology at length pt complaining of diarrhea, check resp viral panel check stool culture, ova parasite screen wbc 14K today, probably reactive, no clear source of infection question of pericarditis? no pericardial effusion noted on echo hyperdynamic LV EF 78%. check esr, crp check UA PDMP PDMP Reviewed: Not Reviewed Attestations 2 Medical Necessity Statement*: has persistent continued chest pain, needs further workup/management Diagnoses Chest pain R07.9 Hypertension I10 Stable angina I20.89 Anxiety and depression F41.9; F32.A GERD without esophagitis K21.9 MARITZA (obstructive sleep apnea) G47.33 Tobacco use disorder F17.200
--- NOTE | 2025-05-08 13:10 | PC.CHAP ---
Pastoral Care Encounter/Spiritual Assessment Type of Contact [] Declined religious activities director visit [] Patient/Family/Request visit [] Outpatient visit [] Follow-up visit [] Physician referral [] Code/Alert [x] Routine visit [] Staff referral [] Actively dying [] Patient sleeping [] Family support [] [] Out of room [] Palliative care [] [] Receiving care in room [] Pre-surgical visit [] Trauma [] Long length of stay [] ICU visit [] Other: Relational/Emotional Strength [] Patient feels connected with others/family/visitors/staff [] Distress [] Loneliness/isolation [] Abandonment Spirituality of Patient [x] Person of Anita [x] Attends Christian of their Anita [x] Believes in Prayer [] Reads Bible or Sabianist materials [] There are Spiritual issues to be addressed Packing Attendant Interventions [x] Prayer [x] Active listening [] Non-anxious presence [] Spiritual/emotional support [] Crisis/trauma care [] Spiritual counseling [] Bereavement support [] Provided bereavement packet [] Provided Bible/devotional materials [] Provided toy/stuffed animal, coloring book to patient or family member [] Provided Communion [] Anointing/[place] [] Salvation [] Completed spiritual assessment [] Other: Impact on Illness or Injury [] Angry [] Fearful [] Anxious [] Often cries [] Exhaustion [] Unable to work [] Unable to attend hoahaoism [] Unable to walk/stand [] Unable to read [] Unable to drive [] Unable to eat/drink [] Unable to sleep [] Unable to be with family [] Patient intubated [] Other: Summary Time spent with patient 1 hour and 53 min
[2025-05-08 22:09] LABS: Coronavirus 229E,HKU1,NL63,OC4 Not Detected (NOT DETECT); Parainfluenza Virus Type 1 Not Detected (NOT DETECT); Parainfluenza Virus Type 2 Not Detected (NOT DETECT); Parainfluenza Virus Type 3 Not Detected (NOT DETECT); Parainfluenza Virus Type 4 Not Detected (NOT DETECT); SARS-COV-2 Not Detected (NOT DETECT)
[2025-05-09] MEDS: alum-mag-hydroxide-sime 30 mL UDC PO ×3 (01:06→04:24)
[2025-05-09] MEDS: HYDROcodone-acetaminophen 5-325 mg Tablet 1 TAB PO (01:06)
[2025-05-09 03:29] LABS: Hematocrit 33.2 % (36-47); Hemoglobin 11.00 g/dL (11.27-16.99); Mean Corpuscular HGB Conc 33.1 g/dL (30-55); Mean Corpuscular Hemoglobin 29.5 pg (27-33); Mean Corpuscular Volume 89.0 fl (85-98); Nucleated Red Blood Cells % 0 %; Platelet Count 280 10^3/cmm (157-399); Red Blood Count 3.73 10^6/uL (3.85-5.65); White Blood Count 8.89 10^3/uL (3.29-11.43)
[2025-05-09 03:59] LABS: Blood Urea Nitrogen 16 mg/dL (6-20); Calcium 9.1 mg/dL (8.5-10.5); Carbon Dioxide 27 mmol/L (22-29); Chloride 103 mmol/L (98-107); Creatinine Clr Calc Pharmacy 58.7889; Glucose 133 mg/dL (65-115); Osmolality Calculated 293 mOsm/kg (285-295); Sodium 140 mmol/L (136-145)
[2025-05-09 04:00] VITALS: BP 128/60; PULSE 84; RESP 15; TEMP 36.6; O2SAT 95
[2025-05-09 04:02] LABS: Anion Gap 14.2 (5-19); Potassium 4.2 mmol/L (3.5-5.1)
[2025-05-09] MEDS: ondansetron hcl ODT 4 mg Tab PO ×2 (04:24→08:20)
[2025-05-09 07:15] VITALS: BP 126/72; PULSE 79; RESP 16; TEMP 36.7; O2SAT 95
[2025-05-09 08:40] VITALS: PULSE 75; RESP 18; O2SAT 96
[2025-05-09 09:50] VITALS: BP 126/72; PULSE 75; RESP 18; TEMP 36.7; O2SAT 98
--- NOTE | 2025-05-09 09:59 | P.DS_ITS ---
Discharge Providers Date of Admission: 05/07/25 15:53 Date of Discharge: May 09, 2025 Attending Provider at Admission: Sharon Desai MD Attending Provider at Discharge: Sharon Desai MD Primary Care Provider: Hillary Martínez DO Diagnoses at Discharge Discharge Diagnosis 1. Chest pain: 2. Primary hypertension: 3. Stable angina: 4. Anxiety and depression: 5. GERD without esophagitis: 6. MARITZA (obstructive sleep apnea): 7. Tobacco use disorder: Reason for Visit Reason for Visit: CP N/V SOB pain down arm Hospital Course Hospital Course Patient initially presented to the hospital with chest pain which was deemed to be unstable angina. She was placed on heparin drip nitro drip and cardiology was consulted. She underwent coronary angiogram which revealed coronary arteries that were patent. Suspicion for broken heart syndrome/coronary vasospasm. She was placed on Imdur 30 daily. Discussed with cardiology at length. Patient was anxious therefore IV Ativan was given x 2 during hospital stay. This helped however did not relieve her issue completely. Echo was also obtained which did not show any gross wall motion abnormalities. Also had elevated white count on admission which I thought was reactive. No antibiotics were given as there was no indication of infection. She is on 25 of prednisone at home which she should continue. Sed rate CRP were negative. Her Soma was also restarted. She is to follow-up with her primary care doctor and cardiology as an outpatient. All questions answered. Patient will be discharged home in stable condition. Physical Exam Narrative: General: Alert oriented x3, HEENT: Normocephalic, atraumatic, EOMI, breathing room air. Cardio: Regular rate rhythm, normal S1-S2, Respiratory: Clear to auscultation bilaterally GI: Abdomen soft, nontender abdomen, nondistended, bowel sounds + Extremities: Trace edema bilateral lower extremities. Discharge Data Studies Completed and Pending Completed Studies During Hospitalization Category Date Time Status XR chest 1V portable [id number] Stat Exams 05/07/25 14:24 Completed CV. echo complete* [id number] Stat Ultrasound 05/07/25 15:52 Completed Pending at discharge Category Date Time Status OFFICE SUPPORT ASSOCIATE request for service Routine Exams 05/07/25 20:24 Ordered Radiology Impressions Chest X-Ray 05/07/25 14:24 Impression: Negative chest. Laboratory Results WBC 8.89 10^3/uL (3.29-11.43) 05/09/25 02:53 RBC 3.73 10^6/uL (3.85-5.65) L 05/09/25 02:53 Hgb 11.00 g/dL (11.27-16.99) L 05/09/25 02:53 Hct 33.2 % (36-47) L 05/09/25 02:53 MCV 89.0 fl (85-98) 05/09/25 02:53 MCH 29.5 pg (27-33) 05/09/25 02:53 MCHC 33.1 g/dL (30-55) 05/09/25 02:53 RDW 12.6 % (12.1-15.1) 05/09/25 02:53 Plt Count 280 10^3/cmm (157-399) 05/09/25 02:53 MPV 10.1 fL (7.4-10.4) 05/09/25 02:53 Neut % (Auto) 81.2 % 05/09/25 02:53 Lymph % (Auto) 12.6 % 05/09/25 02:53 [place] % (Auto) 5.2 % 05/09/25 02:53 Eos % (Auto) 0.0 % 05/09/25 02:53 Baso % (Auto) 0.2 % 05/09/25 02:53 Neut # (Auto) 7.22 10^3/uL (1.8-7.7) 05/09/25 02:53 Lymph # (Auto) 1.1 10^3/uL (0.8-4.8) 05/09/25 02:53 [place] # (Auto) 0.5 10^3/uL (0.2-0.9) 05/09/25 02:53 Eos # (Auto) 0.0 10^3/uL (0.0-0.8) 05/09/25 02:53 Baso # (Auto) 0.0 10^3/uL (0.0-0.1) 05/09/25 02:53 Nucleated RBC % (auto) 0 % 05/09/25 02:53 Nucleated RBCs # 0.0 /100WBC 05/09/25 02:53 ESR 2 mm/hr (0-15) 05/08/25 02:53 D-Dimer <= 0.27 ug/mLFEU (0-0.59) 05/07/25 14:51 Sodium 140 mmol/L (136-145) 05/09/25 02:53 Potassium 4.2 mmol/L (3.5-5.1) 05/09/25 02:53 Chloride 103 mmol/L (98-107) 05/09/25 02:53 Carbon Dioxide 27 mmol/L (22-29) 05/09/25 02:53 Anion Gap 14.2 (5-19) 05/09/25 02:53 BUN 16 mg/dL (6-20) 05/09/25 02:53 Creatinine 1.0 mg/dL (0.5-0.9) H 05/09/25 02:53 GFR Calculation 57.1 mL/min (90-130) L 05/09/25 02:53 Glucose 133 mg/dL (65-115) H 05/09/25 02:53 Calculated Osmolality 293 mOsm/kg (285-295) 05/09/25 02:53 Calcium 9.1 mg/dL (8.5-10.5) 05/09/25 02:53 Magnesium 1.8 mg/dL (1.7-2.3) 05/08/25 02:53 Total Bilirubin 0.5 mg/dL (0.15-1.2) 05/07/25 14:51 AST 13 U/L (0-32) 05/07/25 14:51 ALT 19 U/L (0-33) 05/07/25 14:51 Alkaline Phosphatase 59 U/L (35-105) 05/07/25 14:51 Troponin T Baseline < 6 ng/L (0-10) 05/07/25 14:51 Troponin T 120 Minute < 6.0 ng/L (0-10) 05/07/25 16:23 Delta Troponin T 0 ABS# (0-10) 05/07/25 16:23 Troponin T Hi Sens 6Hr 6.82 ng/L (0-10) 05/07/25 20:38 Troponin T Hi Sens 6Hr Delta 0.03002 ng/L (0-12) 05/07/25 20:38 C-Reactive Protein 3.0 mg/L (0.0-4.9) 05/08/25 02:53 Total Protein 7.2 g/dL (6.6-8.7) 05/07/25 14:51 Albumin 4.7 g/dL (3.5-5.2) 05/07/25 14:51 Globulin 2.5 g/dL (1.3-4.6) 05/07/25 14:51 Triglycerides 144 mg/dL (0-150) 05/08/25 02:53 Cholesterol 189 mg/dL (0-200) 05/08/25 02:53 LDL Cholesterol, Calc 113 mg/dL (50-129) 05/08/25 02:53 HDL Cholesterol 47 mg/dL (60-100) L 05/08/25 02:53 LDL/HDL Ratio 2.40 RATIO (0.00-3.22) 05/08/25 02:53 Cholesterol/HDL Ratio 4.02 mg/dL (0.0-4.40) 05/08/25 02:53 Lipase 21 U/L (13-60) 05/07/25 14:51 TSH 0.72 uIU/mL (0.27-4.20) 05/07/25 16:23 Adenovirus (PCR) Not detected (NOT DETECT) 05/08/25 20:15 C. pneumoniae DNA (PCR) Not detected (NOT DETECT) 05/08/25 20:15 Coronavirus 229E (PCR) Not detected (NOT DETECT) 05/08/25 20:15 Human Metapneumovir PCR Not detected (NOT DETECT) 05/08/25 20:15 Influenza A (H1) PCR Not detected (NOT DETECT) 05/08/25 20:15 Influ A (H1/09) PCR Not detected (NOT DETECT) 05/08/25 20:15 Influenza A (H3) PCR Not detected (NOT DETECT) 05/08/25 20:15 Influenza Type A (PCR) Not detected (NOT DETECT) 05/08/25 20:15 Influenza Type B (PCR) Not detected (NOT DETECT) 05/08/25 20:15 M. pneumoniae (PCR) Not detected (NOT DETECT) 05/08/25 20:15 Parainfluenza 1 (PCR) Not detected (NOT DETECT) 05/08/25 20:15 Parainfluenza 2 (PCR) Not detected (NOT DETECT) 05/08/25 20:15 Parainfluenza 3 (PCR) Not detected (NOT DETECT) 05/08/25 20:15 Parainfluenza 4 (PCR) Not detected (NOT DETECT) 05/08/25 20:15 RSV Type A (PCR) Not detected (NOT DETECT) 05/08/25 20:15 RSV Type B (PCR) Not detected (NOT DETECT) 05/08/25 20:15 Entero/Rhino (PCR) Not detected (NOT DETECT) 05/08/25 20:15 SARS-CoV-2 (PCR) Not detected (NOT DETECT) 05/08/25 20:15 Vitals Last Vital Signs Temp 98.0 F 05/09/25 09:50 Pulse 75 05/09/25 09:50 Resp 18 05/09/25 09:50 BP 126/72 05/09/25 09:50 Pulse Ox 98 05/09/25 09:50 O2 Del Method Room Air 05/09/25 08:40 Discharge Plan Discharge Patient Disposition: Home Condition: Stable Prescriptions: New isosorbide mononitrate 30 mg Tablet Extended Release 24 Hr 30 mg PO DAILY Qty: 30 0RF aspirin 81 mg Tablet,Delayed Release (Dr/Ec) 81 mg PO DAILY Qty: 30 0RF Continued albuterol sulfate 90 mcg/actuation HFA aerosol inhaler 2 puff INHALATION QID PRN (Reason: Shortness Of Breath) Qty: 6.7 2RF (DME) CPAP 6-16cm mmHg setting See Rx Instructions .ROUTE .MEDSUPPLY Qty: 1 0RF Rx Instructions: As directed (DME) CPAP mask, tubing, supplies See Rx Instructions .ROUTE .MEDSUPPLY Qty: 1 1RF Rx Instructions: As directed cetirizine [Zyrtec] 10 mg tablet 10 mg PO DAILY Qty: 90 1RF enalapril maleate 20 mg tablet 20 mg PO QAM Qty: 90 1RF metoprolol tartrate 50 mg tablet 50 mg PO BID Qty: 180 1RF duloxetine 60 mg capsule,delayed release(DR/EC) 60 mg PO DAILY Qty: 90 1RF ropinirole 0.5 mg tablet 0.5 mg PO DAILY Qty: 90 1RF clonazepam 1 mg tablet 1 mg PO DAILY PRN (Reason: Anxiety) Qty: 30 0RF calcium carbonate 500 mg calcium (1,250 mg) Tablet 500 mg PO BEDTIME omega-3 fatty acids-fish oil 4841,200 mg Capsule,Delayed Release(Dr/Ec) 1 cap PO BEDTIME carisoprodol 350 mg tablet 350 mg PO TID prednisone 20 mg tablet 20 mg PO DAILY hydrocodone-acetaminophen 7.5-325 mg tablet 1 tab PO Q4H PRN (Reason: Pain) pantoprazole 40 mg tablet,delayed release (DR/EC) 40 mg PO BID cholecalciferol (vitamin D3) [Vitamin D3] 25 mcg (1,000 unit) Tablet 25 mcg PO DAILY Discontinued hydrochlorothiazide 25 mg tablet 25 mg PO DAILY Qty: 90 1RF prednisone 5 mg tablet 50 mg PO DAILY Discharge Order = DC NOW: Discharge Order (Routine); Ordered 05/09/25 Ordered By: Sharon Desai Referrals: Sarah Mejia MD [Physician, Cardiology] - 2 weeks Referral Note: We have notified your physician's clinic of the need for a follow-up appointment to be scheduled. If you have not heard from them within the next 2 business days, please call them directly. Hillary Martínez DO [Primary Care Provider] - 1-3 days Referral Note: We have notified your physician's clinic of the need for a follow-up appointment to be scheduled. If you have not heard from them within the next 2 business days, please call them directly. Discharge Diet: Cardiac Patient Instructions: Opioid Safety, Post Angiogram Home Care Instructions, Patient Portal & Janet Instructions Discharge Attestations Time Spent in Discharge Care*: greater than 30 min Quality Metrics Clinical Quality Measures [ No reported AMI, CVA or VTE this stay] Coding Level of Care Code 32916 Total time (in minutes) for Discharge: 35 Diagnoses Chest pain R07.9 Primary hypertension I10 Hypertension type: primary hypertension Stable angina I20.89 Anxiety and depression F41.9; F32.A GERD without esophagitis K21.9 MARITZA (obstructive sleep apnea) G47.33 Tobacco use disorder F17.200
== END 2025-05-09 09:54 | disposition home or self-care (01) | DRG 287 ==
LOC: ER 17:01 → CSU 17:23
PROVIDERS: Internal Medicine Cardiovascular Disease; Admitting Provider Internal Medicine; Emergency Provider Emergency Medicine; PCP Student in an Organized Health Care Education/Training Program; Visit Provider Internal Medicine
PROC: 4A023N7 Measurement of Cardiac Sampling and Pressure, Left Heart, Percutaneous Approach (ICD-10-PCS; principal; 2025-05-07 21:00)
DX: I20.1 Angina pectoris with documented spasm (principal); I10 Essential (primary) hypertension; F41.9 Anxiety disorder, unspecified; F32.A Depression, unspecified; K21.9 Gastro-esophageal reflux disease without esophagitis; G47.33 Obstructive sleep apnea (adult) (pediatric); M35.3 Polymyalgia rheumatica; F17.210 Nicotine dependence, cigarettes, uncomplicated; Z79.82 Long term (current) use of aspirin; Z82.49 Family history of ischemic heart disease and other diseases of the circulatory system
CPT/HCPCS: 36415; 71045; 80048; 80053; 80061; 83690; 83735; 84443; 84484; 85025; 85347; 85378; 85651; 86140; 87486; 87581; 87633; 93005; 93306; 93458; 96374; 96375; 99152; 99153; 99285; C1769; C1887; C1894; J1171; J1200; J1644; J2060; J2250; J2270; J2405; J3010; J3490; J7030; J7512; J9999; Q0162; Q9967

== ENCOUNTER 2025-06-05 13:26 | Observation (INO) | payer OTHER, SELFPAY ==
[2025-06-05] VITALS (28 sets, daily range): BP systolic 108–143; BP diastolic 57–87; PULSE 63–95; RESP 13–23; TEMP 36.7; O2SAT 82–100
--- OUTSIDE RECORDS SUMMARY | 2025-06-05 13:30 | XMS_ITS | Clinical Summary ---
Author Organization [facility] Address [address] [place] [address] Phone Care Team Providers Care Vamp Maker Name Role Phone Unavailable Primary Care Provider Unavailabl e Encounters Date Type Department Care Team Description 04/29/2025 Orders Only [place] [address] [place] [address] Raquel Domínguez MD Mass of skin of left thumb (Primary Dx) 04/27/2025 External Device Data STL ABSTRACTION Provider, Abstract 04/07/2025 External Device Data STL ABSTRACTION Provider, Abstract 04/07/2025 External Device Data STL ABSTRACTION Provider, Abstract 04/07/2025 External Device Data STL ABSTRACTION Provider, Abstract 04/07/2025 External Device Data STL ABSTRACTION Provider, Abstract 04/06/2025 External Device Data STL ABSTRACTION Provider, Abstract 03/31/2025 Telephone [place] [address] [place] [phone] Vanessa Gorman MD General from Last 3 [...] Care Team (Late st Contact Info) Description 08/16/2025 9:30 AM SERVICE TRAINER Office Visit [facility] [place] [address] [facility] [address] [place] [phone] Emi Resendiz FNP [address] [address] Health Maintenance Due Date Last [...] 2) 02/13/2018 INFLUENZA VACCINE (#1) [address] [place] [address] [employer] [id number]
--- NOTE | 2025-06-05 14:59 | XRR_ITS ---
PROCEDURE INFORMATION: Exam: XR Chest Exam date and time: 06/05/2025 3:00 PM Age: 55 years old Clinical indication: Pain; Chest pressure; Additional info: Chest pain TECHNIQUE: Imaging protocol: Radiologic exam of the chest. Views: 1 view. COMPARISON: CR XR chest 1V portable [id number] 05/07/2025 3:01 PM FINDINGS: Lungs: No significant active pathology. Pleural spaces: No pleural effusion or pneumothorax. Heart/Mediastinum: Unremarkable. Bones/joints: Prior ACDF. XR/XR chest 1V portable [id number] IMPRESSION: No acute pathology or significant interval change.
--- NOTE | 2025-06-05 14:59 | ECG_ITS ---
[facility] Test Date: 2025-06-05 Pat Name: Evy Shaw Department: Room: Gender: Female Pants Closer: : 1970 Requested By: Kamaljit Monge Order Number: [id number] Richi MD: Juan Pablo Capps M.D. Measurements Intervals [place] Rate: 87 P: 51 VT: 128 QRS: 5 QRSD: 91 T: 45 QT: 334 QTc: 404 Interpretive Statements SINUS RHYTHM LOW QRS VOLTAGE IN PRECORDIAL LEADS [QRS DEFLECTION < 1.0 mV IN CHEST LEADS] Compared to ECG 05/07/2025 20:25:34 Low QRS voltage now present ST (T wave) deviation no longer present Electronically Signed On 06-05-2025 18:49:58 CDT by Juan Pablo Capps M.D. [id number] [id number]
--- NOTE | 2025-06-05 15:01 | W.ED.CHESTPA ---
HPI - Chest Pain General: Chief Complaint: Chest Pain Stated Complaint: chest pain Time Seen by Provider: 06/05/25 14:59 History of Present Illness: 55-year-old female presents emergency room complaining of chest discomfort. She was recently seen in the emergency room for angina she had a coronary angiogram that was normal she was thought to be having vasospasms of her coronary arteries. She was discharged home on isosorbide. She began to have pain today while she was running errands and got progressively worse she had improvement when she took nitroglycerin after arrival here she had topical nitro applied and had near complete resolution of her pain. She complained of the pain radiate to her neck and into her back and was extremely short of breath with this. Associated symptoms: Deny abdominal pain, dyspnea or fever(s) Related Data Home Medications ?Medication ?Instructions ?Recorded ?Confirmed calcium carbonate 500 mg PO BEDTIME 01/31/23 06/06/25 cholecalciferol (vitamin D3) 25 25 mcg PO DAILY 05/07/25 06/06/25 mcg (1,000 unit) tablet (Vitamin D3) hydrocodone 7.5 mg-acetaminophen 1 tab PO Q4H PRN Pain 05/07/25 06/06/25 325 mg tablet pantoprazole 40 mg tablet,delayed 40 mg PO BID 05/07/25 06/06/25 release prednisone 20 mg tablet 20 mg PO DAILY 05/07/25 06/06/25 hydrochlorothiazide 25 mg tablet 25 mg PO QAM 05/13/25 06/06/25 magnesium carb,citrate,oxide 300 mg PO DAILY 05/13/25 06/06/25 nitroglycerin 0.4 mg sublingual 0.4 mg sublingual Q5M PRN Chest 05/13/25 06/06/25 tablet Pain carisoprodol 350 mg tablet 350 mg PO TID PRN muscle spasms 06/04/25 06/06/25 prednisone 5 mg tablet 5 mg PO DAILY 06/06/25 06/06/25 Previous Rx's ?Medication ?Instructions ?Recorded albuterol sulfate 90 mcg/actuation 2 puff inhalation QID PRN 09/17/24 aerosol inhaler Shortness Of Breath #6.7 grams cetirizine 10 mg tablet (Zyrtec) 10 mg PO DAILY #90 tabs 01/21/25 enalapril maleate 20 mg tablet 20 mg PO QAM #90 tabs 03/16/25 metoprolol tartrate 50 mg tablet 50 mg PO BID #180 tabs 03/22/25 clonazepam 1 mg tablet 1 mg PO DAILY PRN Anxiety #30 tabs 04/27/25 duloxetine 60 mg capsule,delayed 60 mg PO DAILY #90 caps 04/27/25 release ropinirole 0.5 mg tablet 0.5 mg PO DAILY #90 tabs 04/27/25 aspirin 81 mg tablet,delayed 81 mg PO DAILY #30 tabs 05/09/25 release isosorbide mononitrate 30 mg 60 mg (2 x 30 mg) PO DAILY #90 tabs 06/06/25 tablet,extended release 24 hr ranolazine 1,000 mg 1,000 mg PO BID #60 tabs 06/06/25 tablet,extended release,12 hr Allergies Allergy/AdvReac Type Severity Reaction Status Date / Time No Known Allergies Allergy Verified 06/05/25 13:46 Review of Systems Const: Denies: fever(s) or chills Card: Reports: chest pain Resp: Denies: dyspnea GI: Denies: abdominal pain : Denies: dysuria, urinary frequency or urinary urgency Musc: Denies: neck pain or back pain Skin/Breast: Denies: rash PFSH ED PFSH: Medical History Coronary artery vasospasm MARITZA (obstructive sleep apnea) Tobacco use disorder Chronic neck pain GERD without esophagitis Anxiety and depression Hypertension Surgical History History of hysterectomy Hx of appendectomy History of cholecystectomy Family History Father Congestive heart failure (CHF) Mother Diabetes Hypertension Cancer Breast Social History Smoking and tobacco/nicotine status: current every day tobacco/nicotine user cigarettes Packs smoked per day: 0.25 Quit status (tobacco/nicotine): considering quitting Second hand smoke exposure: No Alcohol intake: current Alcohol intake frequency: few times a week Substance/Drug Use: current Substance/Drug use frequency: few times a week Other substance/drug use details: 6 or 7 drinks a weekend Additional social history: Patient wants full CODE STATUS as discussed on 06/05/2025 with Kunal Sloan MD Adopted: No Lives independently: Yes Household members: spouse Marital status: Number of children: 4 Number of grandchildren: 3 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 branch: [employer] Current occupational status: employed 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 [employer] Current occupational exposures/hazards: No Pets and animals: No Sexually active: Yes Do you think of yourself as: Straight/Heterosexual Current gender identity: Female Female Reproductive History: Spontaneous abortions: No Physical Exam Const: GENERAL APPEARANCE: cooperative ORIENTATION/CONSCIOUSNESS: Yes awake, Yes oriented to person, Yes oriented to place and Yes oriented to time HENMT: COMMON NORMALS: normocephalic, atraumatic and hearing grossly normal bilaterally HEAD & SCALP: normocephalic and atraumatic Resp: COMMON NORMALS: normal respiratory effort, No retractions, No use of accessory muscles and clear to auscultation bilaterally AUSCULTATION: clear to auscultation bilaterally Cardio: COMMON NORMALS: regular rate, regular rhythm and No murmurs present (Cardio) RATE: regular rate RHYTHM: regular rhythm GI: COMMON NORMALS: Soft to palpation and No hepatosplenomegaly present AUSCULTATION: Yes normoactive bowel sounds PALPATION: Yes Soft to palpation, No Tenderness to palpation present (GI), No Guarding due to palpation present (GI) and Yes No hepatosplenomegaly present Extremity: COMMON NORMALS: normal to inspection, capillary refill normal, no clubbing, cyanosis or edema, no calf tenderness and no pedal edema Neuro: SENSORIUM/ORIENTATION: Yes oriented to person, Yes oriented to place and Yes oriented to time Skin: COMMON NORMALS: no rashes or lesions noted GENERAL SKIN EXAM: no rashes or lesions noted Course Vital Signs: Vital signs: Vital Signs Temperature 98.0 F 06/06/25 07:46 Pulse Rate 75 06/06/25 11:43 Respiratory Rate 24 H 06/06/25 11:43 Blood Pressure 138/74 06/06/25 11:43 Pulse Oximetry 95 06/06/25 11:43 Oxygen Delivery Me thod Room Air 06/06/25 11:14 MDM - Chest Pain Medical Decision Making EKG does not show any acute changes reviewed procedures from previous hospitalization. Which took the patient off the nitro however she reported immediate recurrence of her pain. Suspicious that this may be noncardiac had a long discussion the patient about that she is very concerned about the vasospasm causing a heart attack. Discussed with her other possible causes ultimately we elected to place her on observation. She had been restarted on the nitro and reported that her pain had resolved. Discussed with cardiology including plan initially to send with home with increased dose of isosorbide mononitrate when we tried to execute this plan patient had recurrence of chest pain and ultimately as documented above we ended up placing her on observation. Medical Records I reviewed the patient's medical records. Lab Data I reviewed the patient's lab results. 06/05/25 15:13 06/05/25 15:13 Radiology Impressions Chest X-Ray 06/05/25 14:59 IMPRESSION: No acute pathology or significant interval change. Laboratory Results WBC 11.11 10^3/uL (3.29-11.43) 06/05/25 15:13 RBC 4.24 10^6/uL (3.85-5.65) 06/05/25 15:13 Hgb 12.70 g/dL (11.27-16.99) 06/05/25 15:13 Hct 38.3 % (36-47) 06/05/25 15:13 MCV 90.3 fl (85-98) 06/05/25 15:13 MCH 30.0 pg (27-33) 06/05/25 15:13 MCHC 33.2 g/dL (30-55) 06/05/25 15:13 RDW 13.1 % (12.1-15.1) 06/05/25 15:13 Plt Count 306 10^3/cmm (157-399) 06/05/25 15:13 MPV 9.4 fL (7.4-10.4) 06/05/25 15:13 Neut % (Auto) 82.9 % 06/05/25 15:13 Lymph % (Auto) 13.1 % 06/05/25 15:13 Power % (Auto) 2.2 % 06/05/25 15:13 Eos % (Auto) 0.1 % 06/05/25 15:13 Baso % (Auto) 0.3 % 06/05/25 15:13 Neut # (Auto) 9.21 10^3/uL (1.8-7.7) H 06/05/25 15:13 Lymph # (Auto) 1.5 10^3/uL (0.8-4.8) 06/05/25 15:13 Power # (Auto) 0.2 10^3/uL (0.2-0.9) 06/05/25 15:13 Eos # (Auto) 0.0 10^3/uL (0.0-0.8) 06/05/25 15:13 Baso # (Auto) 0.0 10^3/uL (0.0-0.1) 06/05/25 15:13 Nucleated RBC % (auto) 0 % 06/05/25 15:13 Nucleated RBCs # 0.0 /100WBC 06/05/25 15:13 Sodium 141 mmol/L (136-145) 06/05/25 15:13 Potassium 4.3 mmol/L (3.5-5.1) 06/05/25 15:13 Chloride 100 mmol/L (98-107) 06/05/25 15:13 Carbon Dioxide 28 mmol/L (22-29) 06/05/25 15:13 Anion Gap 17.3 (5-19) 06/05/25 15:13 BUN 16 mg/dL (6-20) 06/05/25 15:13 Creatinine 1.1 mg/dL (0.5-0.9) H 06/05/25 15:13 GFR Calculation 51.2 mL/min (90-130) L 06/05/25 15:13 Glucose 123 mg/dL (65-115) H 06/05/25 15:13 Calculated Osmolality 295 mOsm/kg (285-295) 06/05/25 15:13 Calcium 10.2 mg/dL (8.5-10.5) 06/05/25 15:13 Total Bilirubin 0.4 mg/dL (0.15-1.2) 06/05/25 15:13 AST 13 U/L (0-32) 06/05/25 15:13 ALT 19 U/L (0-33) 06/05/25 15:13 Alkaline Phosphatase 55 U/L (35-105) 06/05/25 15:13 Troponin T Baseline < 6 ng/L (0-10) 06/05/25 15:13 Troponin T 120 Minute < 6.0 ng/L (0-10) 06/05/25 17:19 Delta Troponin T 0 ABS# (0-10) 06/05/25 17:19 Total Protein 6.7 g/dL (6.6-8.7) 06/05/25 15:13 Albumin 4.5 g/dL (3.5-5.2) 06/05/25 15:13 Globulin 2.2 g/dL (1.3-4.6) 06/05/25 15:13 All radiology interpretation(s) finalized by discharge EKG Data EKG 1: Interpretation: EKG 06/05/2025 1335 sinus rhythm rate of 87 [place] interval 128 QTc 404. No acute ST changes noted. Compared EKG 05/07/2025 no significant changes EKG 2: Interpretation: EKG 06/05/25 1511 normal sinus rhythm rate of 76 parable 134 QTc [address] changes noted no change from EKG done earlier same day Discharge Plan Discharge Patient Disposition: Admitted As Inpatient Admit Provider: Kunal Sloan Clinical Impression: Coronary artery vasospasm, Hypertension Condition: Stable Discharge Diet: Cardiac and Low Salt Discharge Activity: Increase activity as tolerated Coding Level of Care Code ED Cotton Grader for Trishag Cely
--- NOTE | 2025-06-05 15:11 | ECG_ITS ---
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 Measurements Intervals [place] Rate: 76 P: 50 OK: 134 QRS: -4 QRSD: 75 T: 21 QT: 362 QTc: 408 Interpretive Statements SINUS RHYTHM Compared to ECG 06/05/2025 13:35:51 No significant changes Electronically Signed On 06-05-2025 20:30:09 CDT by Juan Pablo Capps M.D. [id number] [id number]
[2025-06-05] MEDS: morphine 4 mg/mL SDV 1 mL IVP (15:26)
[2025-06-05 15:27] LABS: Hematocrit 38.3 % (36-47); Hemoglobin 12.70 g/dL (11.27-16.99); Mean Corpuscular HGB Conc 33.2 g/dL (30-55); Mean Corpuscular Hemoglobin 30.0 pg (27-33); Mean Corpuscular Volume 90.3 fl (85-98); Nucleated Red Blood Cells % 0 %; Platelet Count 306 10^3/cmm (157-399); Red Blood Count 4.24 10^6/uL (3.85-5.65); White Blood Count 11.11 10^3/uL (3.29-11.43)
[2025-06-05] MEDS: ondansetron 2 mg/ML SDV 2 mL 4 MG IVP (15:27)
[2025-06-05] MEDS: nitroglycerin drip 50 MG/250 ML PREMIX IV (15:45)
[2025-06-05 15:49] LABS: Troponin(5th) Baseline < 6 ng/L (0-10)
[2025-06-05 15:52] LABS: Alanine Aminotransferase 19 U/L (0-33); Albumin Level 4.5 g/dL (3.5-5.2); Alkaline Phosphatase 55 U/L (35-105); Anion Gap 17.3 (5-19); Aspartate Amino Transferase 13 U/L (0-32); Blood Urea Nitrogen 16 mg/dL (6-20); Calcium 10.2 mg/dL (8.5-10.5); Carbon Dioxide 28 mmol/L (22-29); Chloride 100 mmol/L (98-107); Creatinine Clr Calc Pharmacy 52.9595; Globulin 2.2 g/dL (1.3-4.6); Glucose 123 mg/dL (65-115); Osmolality Calculated 295 mOsm/kg (285-295); Potassium 4.3 mmol/L (3.5-5.1); Sodium 141 mmol/L (136-145); Total Protein 6.7 g/dL (6.6-8.7)
[2025-06-05] MEDS: lidocaine 2% viscous 15 ML, aluminum-mag hydrox-simethicon 30 ML, sucralfate oral liq 1 GM PO (16:36)
[2025-06-05] MEDS: morphine 4 mg/mL SDV 1 mL 2 MG IVP ×2 (17:36→22:33)
[2025-06-05] MEDS: pantoprazole 40 mg SDV 80 MG IVP (17:36)
[2025-06-05 17:50] LABS: Troponin 5 2HR < 6.0 ng/L (0-10); Troponin 5 2HR Delta 0 ABS# (0-10)
--- NOTE | 2025-06-05 18:05 | PC.NURSE ---
Addendum entered by Sheyla Rivas RN 06/05/25 18:11: Nurse turned up nitro drip to 15mcg/min when arrived to room. Original Note: Patient transferred from ED to CSU via a bed. Patient walked from hallway to run bed with no trouble. Patient had nitro drip currently at 10mcg/min running.
--- NOTE | 2025-06-05 20:02 | P.HP_ITS ---
Providers/Chief Complaint 2 Admitting Physician: uKnal Sloan MD Primary Care Provider: Hillary Martínez DO Chief Complaint: chest pain History of Present Illness Evy Shaw is a 55 year old female with history of chest pain and cardiac cath finding coronary vasospasm 05/07/2025. She has had chest pain for about 3 months. She has had PMR, hypertension, anxiety for years also has sleep apnea treated with CPAP. Last night the patient was having chest pressure 2/10 took a Xanax and went to sleep slept well this morning was okay running errands at [employer] when she had sweating and chest pain she took a Xanax did not help much took a nitroglycerin in the chest pain -06/02 dropped to 5/10 but only lasted about 10-minute she came to the emergency department and pain was not relieved until she was on nitroglycerin drip. This helped and she has had 25 minutes where she had almost no chest pain but now it has recurred. Patient is accompanied by her granddaughter Nika. 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 Patient reports her father of an [place] in age 64 had 9 siblings 1 had a CABG at age 38 and mother with CABG at 40 others have had strokes Patient smoked average half pack per day for 40 years but has quit many times Review of Systems 2 Narrative: General no fevers chills Cardiovascular positive for chest pain this is typically worsened with activity especially that is already occurred but does seem to have chest pain with activity as well and sometimes associate with diaphoresis Respiratory no cough GI no nausea vomiting diarrhea constipation Neuro no past history of seizure or stroke Medications/Allergies Home Medications ?Medication ?Instructions ?Recorded ?Confirmed ?Last Taken ?Type calcium carbonate 500 mg PO BEDTIME 01/31/23 0 06/04/25 05/06/25 History CPAP 6-16cm mmHg setting #1 ea 05/06/24 05/07/25 Unkn own Rx CPAP mask, tubing, supplies #1 ea 05/06/24 05/07/25 Un known Rx albuterol sulfate 90 mcg/actuation 2 puff inhalation Q ID PRN 09/17/24 06/04/25 5 Months Ago Rx aerosol inhaler Shortness Of Breath #6.7 gra ms ~06/17/24 cetirizine 10 mg tablet (Zyrtec) 10 mg PO DAILY #90 ta bs 01/21/25 06/04/25 05/07/25 Rx enalapril maleate 20 mg tablet 20 mg PO QAM #90 tabs 0 03/16/25 06/04/25 05/07/25 Rx metoprolol tartrate 50 mg tablet 50 mg PO BID #180 tab s 03/22/25 06/04/25 05/07/25 Rx clonazepam 1 mg tablet 1 mg PO DAILY PRN Anxiety #3 0 tabs 04/27/25 06/04/25 Unknown Rx duloxetine 60 mg capsule,delayed 60 mg PO DAILY #90 ca ps 04/27/25 06/04/25 05/07/25 Rx release ropinirole 0.5 mg tablet 0.5 mg PO DAILY #90 tabs 02/1406/04/25 05/06/25 Rx cholecalciferol (vitamin D3) 25 25 mcg PO DAILY 06/04/25 05/07/25 History mcg (1,000 unit) tablet (Vitamin D3) hydrocodone 7.5 mg-acetaminophen 1 tab PO Q4H PRN Pain 05/07/25 06/04/25 Unknown History 325 mg tablet pantoprazole 40 mg tablet,delayed 40 mg PO BID 5 06/04/25 05/07/25 History release prednisone 20 mg tablet 20 mg PO DAILY 05/07/2505/2405/07/25 History aspirin 81 mg tablet,delayed 81 mg PO DAILY #30 tabs 0 05/09/25 05/13/25 Unknown Rx release hydrochlorothiazide 25 mg tablet 25 mg PO QAM 05/13/25 06/04/25 Unknown History magnesium carb,citrate,oxide mg PO 05/13/25 06/04/25 U nknown History nitroglycerin 0.4 mg sublingual 0.4 mg sublingual Q5M PRN 05/13/25 06/04/25 Unknown History tablet ranolazine 500 mg tablet,extended 500 mg PO BID 06/04/25 Unknown History release,12 hr carisoprodol 350 mg tablet 350 mg PO TID PRN 06/04/25 06/04/25 Unknown History isosorbide mononitrate 30 mg 30 mg PO DAILY #90 tabs 0 06/04/25 06/04/25 Unknown Rx tablet,extended release 24 hr prednisone 1XD 06/05/25 06/05/25 Histo ry Allergies Allergy/AdvReac Type Severity Reaction Status Date / Time No Known Allergies Allergy Verified 06/05/25 13:46 PFSH Acute 2 PFSH: Medical History (Updated 06/05/25 @ 20:12 by Kunal Sloan MD) Coronary artery vasospasm MARITZA (obstructive sleep apnea) Tobacco use disorder Chronic neck pain GERD without esophagitis Anxiety and depression Hypertension Surgical History History of hysterectomy Hx of appendectomy History of cholecystectomy Family History Father Congestive heart failure (CHF) Mother Diabetes Hypertension Cancer Breast Social History (Updated 06/05/25 @ 20:10 by Kunal Sloan MD) Smoking and tobacco/nicotine status: current every day tobacco/nicotine user cigarettes Packs smoked per day: 0.25 Number of cigarettes per day: 6-10 Quit status (tobacco/nicotine): considering quitting Second hand smoke exposure: No Alcohol intake: current Alcohol intake frequency: few times a week Substance/Drug Use: current Substance/Drug use frequency: few times a week Other substance/drug use details: 6 or 7 drinks a weekend Additional social history: Patient wants full CODE STATUS as discussed on 06/05/2025 with Kunal Sloan MD Adopted: No Lives independently: Yes Household members: spouse Marital status: Number of children: 4 Number of grandchildren: 3 Education level details: [employer] service: Yes branch: [employer] Current occupational status: employed 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 [employer] Current occupational exposures/hazards: No Pets and animals: No Sexually active: Yes Do you think of yourself as: Straight/Heterosexual Current gender identity: Female Female Reproductive History: Spontaneous abortions: No Vitals/I&O/Wt Last Vital Signs Temp 98.0 F 06/05/25 19:14 Pulse 95 06/05/25 19:14 Resp 17 06/05/25 19:14 BP 120/67 06/05/25 19:14 Pulse Ox 95 06/05/25 19:14 O2 Del Method Room Air 06/05/25 19:14 06/05/25 06/05/25 06/05/25 06:59 14:59 22:59 Intake Total 0 / 0 15.2 / 15.2 Balance 0 / 0 15.2 / 15.2 Weight last 48 hrs Weight 73.936 kg Weight 73.482 kg Physical Exam 2 Narrative: General well-developed well-nourished female modestly anxious CV regular rate and rhythm Lungs clear to auscultation bilaterally Abdomen positive bowel tones soft nontender Calves no tenderness there is trace ankle edema Skin warm and dry Patient is a good historian but she is moderately anxious. Data 06/05/25 15:13 06/05/25 15:13 A&P Assessment and plan 1. Chest pain: Clinically sounds like angina but she has had angiogram performed just 05/07/2025 with clean coronary arteries. Will treat for coronary artery vasospasm 2. Coronary artery vasospasm: Start diltiazem drip 10 mg an hour stop nitroglycerin drip 3. MARITZA (obstructive sleep apnea): Resume home CPAP 4. Anxiety and depression: Will treat with lorazepam 0.5 mg every 4 hours as needed anxiety continue home duloxetine PDMP PDMP Reviewed: Not Reviewed Attestations 2 Medical Necessity Statement*: Patient is admitted to hospital on observation for management of coronary artery vasospasm and expected to require less than 2 midnights in hospital Coding Level of Care Code 50181 Diagnoses Chest pain R07.9 Coronary artery vasospasm I20.1 MARITZA (obstructive sleep apnea) G47.33 Anxiety and depression F41.9; F32.A Time Spent (min) 55
[2025-06-05] MEDS: dilTIAZem 5 mg/mL SDV 5 mL 10 MG IVP (20:33)
[2025-06-05] MEDS: dilTIAZem 100 MG in sodium chloride 0.9% (add-van) 100 ML 10 MG IV (20:47)
--- NOTE | 2025-06-05 20:59 | ECG_ITS ---
[facility] Test Date: 2025-06-05 Pat Name: Evy Shaw Department: Room: 105 Gender: Female Driver/Guide: : 1970 Requested By: Kamaljit Monge Order Number: [id number] Richi MD: Juan Pablo Capps M.D. Measurements Intervals [place] Rate: 61 P: 18 [place]: 142 QRS: 10 QRSD: 78 T: 26 QT: 403 QTc: 406 Interpretive Statements SINUS RHYTHM Compared to ECG 06/05/2025 15:11:05 NO SIGNIFICANT CHANGE Electronically Signed On 06-06-2025 20:32:45 CDT by Juan Pablo Capps M.D. [id number] [id number]
[2025-06-05 21:57] LABS: Troponin 5 6HR < 6.0 ng/L (0-10); Troponin 5 6HR Delta 0 ng/L (0-12)
[2025-06-06] VITALS (31 sets, daily range): BP systolic 113–157; BP diastolic 52–97; PULSE 59–88; RESP 12–24; TEMP 36.7–36.8; O2SAT 89–100
[2025-06-06] MEDS: morphine 4 mg/mL SDV 1 mL 2 MG IVP (02:36)
[2025-06-06] MEDS: dilTIAZem 100 MG in sodium chloride 0.9% (add-van) 100 ML 10 MG IV (05:01)
--- NOTE | 2025-06-06 10:17 | PM.CONSULT ---
Providers/Reason For Consult Consulting Physician/Specialty*: Juan Pablo Capps MD Reason for Consult*: Chest pain Requesting Physician: Kunal Sloan Attending Physician: Kunal Sloan MD Primary Care Provider: Hillary Martínez DO History of Present Illness History of Present Illness Evy Shaw is a 55 year old female smoker with a history of HTN and family history of CAD who underwent a LHC with Dr. Mejia on 05/07/25 for symptoms of chest pain concerning for unstable angina since the patient stated nitroglycerin helped relieve the pain. LHC showed angiographically normal coronary arteries. Echo showed hyperdynamic LVF. EKG showed minimal ST depression at the time, unchanged from prior. Patient was discharge with a working diagnosis of possible coronary vasospasm on Imdur 30mg daily. Medications/Allergies Home Medications ?Medication ?Instructions ?Recorded ?Confirmed ?Last Taken ?Type calcium carbonate 500 mg PO BEDTIME 01/31/23 06/06/25 2 Days Ago History ~06/04/25 albuterol sulfate 90 mcg/actuation 2 puff inhalation QID PRN 09/17/24 06/06/25 5 Months Ago Rx aerosol inhaler Shortness Of Breath #6.7 grams ~06/17/24 cetirizine 10 mg tablet (Zyrtec) 10 mg PO DAILY #90 tabs 01/21/25 06/06/25 1 Day Ago Rx ~06/05/25 enalapril maleate 20 mg tablet 20 mg PO QAM #90 tabs 03/16/25 06/06/25 1 Day Ago Rx ~06/05/25 metoprolol tartrate 50 mg tablet 50 mg PO BID #180 tabs 03/22/25 06/06/25 1 Day Ago Rx ~06/05/25 clonazepam 1 mg tablet 1 mg PO DAILY PRN Anxiety #30 tabs 04/27/25 06/06/25 Unknown Rx duloxetine 60 mg capsule,delayed 60 mg PO DAILY #90 caps 04/27/25 06/06/25 1 Day Ago Rx release ~06/05/25 ropinirole 0.5 mg tablet 0.5 mg PO DAILY #90 tabs 04/27/25 06/06/25 1 Day Ago Rx ~06/05/25 cholecalciferol (vitamin D3) 25 25 mcg PO DAILY 05/07/25 06/06/25 1 Day Ago History mcg (1,000 unit) tablet (Vitamin ~06/05/25 D3) hydrocodone 7.5 mg-acetaminophen 1 tab PO Q4H PRN Pain 05/07/25 06/06/25 Unknown History 325 mg tablet pantoprazole 40 mg tablet,delayed 40 mg PO BID 05/07/25 06/06/25 1 Day Ago History release ~06/05/25 prednisone 20 mg tablet 20 mg PO DAILY 05/07/25 06/06/25 1 Day Ago History ~06/05/25 aspirin 81 mg tablet,delayed 81 mg PO DAILY #30 tabs 05/09/25 06/06/25 1 Day Ago Rx release ~06/05/25 hydrochlorothiazide 25 mg tablet 25 mg PO QAM 05/13/25 06/06/25 1 Day Ago History ~06/05/25 magnesium carb,citrate,oxide 300 mg PO DAILY 05/13/25 06/06/25 1 Day Ago History ~06/05/25 nitroglycerin 0.4 mg sublingual 0.4 mg sublingual Q5M PRN Chest 05/13/25 06/06/25 1 Day Ago History tablet Pain ~06/05/25 ranolazine 500 mg tablet,extended 500 mg PO BID 05/13/25 06/06/25 1 Day Ago History release,12 hr ~06/05/25 carisoprodol 350 mg tablet 350 mg PO TID PRN muscle spasms 06/04/25 06/06/25 Unknown History isosorbide mononitrate 30 mg 30 mg PO DAILY #90 tabs 06/04/25 06/06/25 1 Day Ago Rx tablet,extended release 24 hr ~06/05/25 prednisone 5 mg tablet 5 mg PO DAILY 06/06/25 06/06/25 06/05/25 History Allergies Allergy/AdvReac Type Severity Reaction Status Date / Time No Known Allergies Allergy Verified 06/05/25 13:46 Current Medications Generic Name Dose Route Start Last Admin Trade Name Freq PRN Reason Stop Dose Admin Enoxaparin Sodium 40 mg 06/05/25 20:00 06/05/25 20:49 Enoxaparin 40 Mg/0.4 Ml Syringe SUBCUT 40 mg Q24H SAVITA Administration Diltiazem HCl 100 mg/ Sodium 100 mls @ 10 mls/hr 06/05/25 20:00 06/06/25 05:01 Chloride IV 10 mg/hr .Q10H SAVITA 10 mls/hr 10 MG/HR Administration Lorazepam 0.5 mg 06/05/25 20:00 06/06/25 00:20 Lorazepam 0.5 Mg Tablet PO 0.5 mg Q4H PRN Administration ANXIETY Morphine Sulfate 2 mg 06/05/25 18:08 06/06/25 02:36 Morphine 4 Mg/Ml Sdv 1 Ml IVP 2 mg Q4H PRN Administration SEVERE PAIN PFSH Acute PFSH: Medical History (Updated 06/05/25 @ 20:12 by Kunal Sloan MD) Coronary artery vasospasm MARITZA (obstructive sleep apnea) Tobacco use disorder Chronic neck pain GERD without esophagitis Anxiety and depression Hypertension Surgical History History of hysterectomy Hx of appendectomy History of cholecystectomy Family History Father Congestive heart failure (CHF) Mother Diabetes Hypertension Cancer Breast Social History (Updated 06/05/25 @ 20:10 by Kunal Sloan MD) Smoking and tobacco/nicotine status: current every day tobacco/nicotine user cigarettes Packs smoked per day: 0.25 Number of cigarettes per day: 6-10 Quit status (tobacco/nicotine): considering quitting Second hand smoke exposure: No Alcohol intake: current Alcohol intake frequency: few times a week Substance/Drug Use: current Substance/Drug use frequency: few times a week Other substance/drug use details: 6 or 7 drinks a weekend Additional social history: Patient wants full CODE STATUS as discussed on 06/05/2025 with Kunal Sloan MD Adopted: No Lives independently: Yes Household members: spouse Marital status: Number of children: 4 Number of grandchildren: 3 Education level details: [employer] service: Yes branch: [employer] Current occupational status: employed 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 [employer] Current occupational exposures/hazards: No Pets and animals: No Sexually active: Yes Do you think of yourself as: Straight/Heterosexual Current gender identity: Female Female Reproductive History: Spontaneous abortions: No Vitals/I&O/Wt Last Vital Signs Temp 98.0 F 06/06/25 07:46 Pulse 72 06/06/25 07:46 Resp 17 06/06/25 07:46 BP 138/76 06/06/25 07:46 Pulse Ox 97 06/06/25 07:46 O2 Del Method Room Air 06/06/25 03:53 06/05/25 06/06/25 06/06/25 22:59 06:59 14:59 Intake Total 17.5 / 17.5 82.333 / 99.833 Balance 17.5 / 17.5 82.333 / 99.833 Weight last 48 hrs Weight 160 lb 12.8 oz Weight 163 lb Weight 162 lb Physical Exam Narrative: General: In no acute distress Neck: No jugular venous distention or carotid bruits Heart: Normal S1 and S2 with a regular rate and rhythm, no cardiac murmurs Lungs: Normal respiratory effort with no use of intercostal muscles, clear lungs sounds to auscultation Extremities: No lower extremity edema Neuro: Alert and oriented x 3 Data 06/05/25 15:13 06/05/25 15:13 Other Labs: EKG 06/05/2025: NSR no ST-T abnormalities Other data: echo 05/07/25: 1. Normal LV size. Hyperdynamic LV systolic function. EF 75%. 2. Normal RV size and function. 3. No significant valvular abnormalities A&P Assessment and plan 1. Hypertension: Controlled BP 2. Hyperlipidemia: Patient declines statin tx due to generalized aching with polymyalgia rheumatica. Takes Red yeast rice 3. Family history of premature coronary artery disease: 4. Tobacco use disorder: Smoking cessation encouraged 5. Chest pain: Cause unclear - anxiety, GI, musculoskeletal, or coronary vasospasm etiologies possible Stop IV nitro Start Diltiazem 240 mg daily Continue Imdur 30mg daily Increase Ranexa to 1,000mg bid Stop Metorolol tartrate 50mg bid Plan: Once pain free on current medical regimen, can be discharged from a cardiology standpoint Patient would like to followup with Dr. Mejia as an outpatient PDMP PDMP Reviewed: Not Reviewed Coding Level of Care Code Acute Code for Chg Fwd Diagnoses Hypertension I10 Hyperlipidemia E78.5 Family history of premature coronary artery disease Z82.49 Tobacco use disorder F17.200 Chest pain R07.9
--- NOTE | 2025-06-06 10:48 | P.DS_ITS ---
Discharge Providers Date of Admission: 06/05/25 17:33 Date of Discharge: June 06, 2025 Attending Provider at Admission: Kunal Sloan MD Attending Provider at Discharge: Kunal Sloan MD Consults: Juan Pablo Capps MD Cardiology Primary Care Provider: Hillary Martínez DO Diagnoses at Discharge Discharge Diagnosis 1. Coronary artery vasospasm: Details from hospital stay: Patient had some relief of chest pain with diltiazem which this morning on our discussion sounded effective. Plan was to put her on diltiazem orally but she told Dr. Capps that she did want to make those changes and also that she did not feel well overnight. As result discharge regimen will include metoprolol continued at home dose increase of ranolazine to 1000 mg twice a day increase of Imdur to 60 mg daily and patient refuses addition of diltiazem. 2. Hypertension: Details from hospital stay: Blood pressure is controlled. Patient told Dr. Capps that she did not tolerate the diltiazem well and did not feel good so wants to continue on metoprolol. 3. Hyperlipidemia: Details from hospital stay: Patient with multiple risk factors for coronary artery disease although her angiogram was recently reassuring. LDL is 112. Recommend patient quit smoking and follow-up with PCP to consider statin therapy 4. Family history of premature coronary artery disease: Details from hospital stay: Multiple family members with coronary artery disease 5. Tobacco use disorder: Details from hospital stay: Recommend that patient discontinue tobacco due to vasospasm and family history of coronary disease 6. Chest pain: Details from hospital stay: As above Reason for Visit Reason for Visit: chest pain Brief History: Evy Shaw is a 55 year old female with history of chest pain and cardiac cath finding coronary vasospasm 05/07/2025. She has had chest pain for about 3 months. She has had PMR, hypertension, anxiety for years also has sleep apnea treated with CPAP. Last night the patient was having chest pressure 2/10 took a Xanax and went to sleep slept well this morning was okay running errands at [employer] when she had sweating and chest pain she took a Xanax did not help much took a nitroglycerin in the chest pain 8-10 dropped to 5/10 but only lasted about 10-minute she came to the emergency department and pain was not relieved until she was on ni troglycerin drip. This helped and she has had 25 minutes where she had almost no chest pain but now it has recurred. Patient is accompanied by her granddaughter Nika. 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 I discontinued nitroglycerin drip in favor of diltiazem drip which also was intermittently effective but more effective. I have switched her to diltiazem CD2 140 mg daily. Patient was seen by Dr. Capps who recommends increasing the ranolazine to 1000 mg twice a day. Patient does not want to remain in the hospital further. I have had her tested with ambulation and she has no severe chest pain. With recent angiogram showing coronary vasospasm and no obstructive coronary disease it safe for her to go home and follow-up with her physician outpatient Patient told her nurse to discontinue the diltiazem drip prior to the 3-hour window of overlap with oral medication and states she wants no further treatment and to be discharged. I do think it is safe for the patient to be discharged and will do so at this time accommodating patient's wishes. Per patient's wishes diltiazem was not initiated outpatient. She will continue on metoprolol and other home regimen with increase of ranolazine to 1000 mg twice a day and Imdur to 60 mg daily Physical Exam Narrative: General well-developed well-nourished anxious female in no acute cardiopulmonary stress CV regular rate and rhythm Lungs clear to auscultation bilaterally Abdomen positive bowel tones soft no epigastric pain no sternal discomfort to palpation Discharge Data Studies Completed and Pending Completed Studies During Hospitalization Category Date Time Status XR chest 1V portable [id number] Stat Exams 06/05/25 14:59 Completed Radiology Impressions Chest X-Ray 06/05/25 14:59 IMPRESSION: No acute pathology or significant interval change. Laboratory Results WBC 11.11 10^3/uL (3.29-11.43) 06/05/25 15:13 RBC 4.24 10^6/uL (3.85-5.65) 06/05/25 15:13 Hgb 12.70 g/dL (11.27-16.99) 06/05/25 15:13 Hct 38.3 % (36-47) 06/05/25 15:13 MCV 90.3 fl (85-98) 06/05/25 15:13 MCH 30.0 pg (27-33) 06/05/25 15:13 MCHC 33.2 g/dL (30-55) 06/05/25 15:13 RDW 13.1 % (12.1-15.1) 06/05/25 15:13 Plt Count 306 10^3/cmm (157-399) 06/05/25 15:13 MPV 9.4 fL (7.4-10.4) 06/05/25 15:13 Neut % (Auto) 82.9 % 06/05/25 15:13 Lymph % (Auto) 13.1 % 06/05/25 15:13 [place] % (Auto) 2.2 % 06/05/25 15:13 Eos % (Auto) 0.1 % 06/05/25 15:13 Baso % (Auto) 0.3 % 06/05/25 15:13 Neut # (Auto) 9.21 10^3/uL (1.8-7.7) H 06/05/25 15:13 Lymph # (Auto) 1.5 10^3/uL (0.8-4.8) 06/05/25 15:13 [place] # (Auto) 0.2 10^3/uL (0.2-0.9) 06/05/25 15:13 Eos # (Auto) 0.0 10^3/uL (0.0-0.8) 06/05/25 15:13 Baso # (Auto) 0.0 10^3/uL (0.0-0.1) 06/05/25 15:13 Nucleated RBC % (auto) 0 % 06/05/25 15:13 Nucleated RBCs # 0.0 /100WBC 06/05/25 15:13 Sodium 141 mmol/L (136-145) 06/05/25 15:13 Potassium 4.3 mmol/L (3.5-5.1) 06/05/25 15:13 Chloride 100 mmol/L (98-107) 06/05/25 15:13 Carbon Dioxide 28 mmol/L (22-29) 06/05/25 15:13 Anion Gap 17.3 (5-19) 06/05/25 15:13 BUN 16 mg/dL (6-20) 06/05/25 15:13 Creatinine 1.1 mg/dL (0.5-0.9) H 06/05/25 15:13 GFR Calculation 51.2 mL/min (90-130) L 06/05/25 15:13 Glucose 123 mg/dL (65-115) H 06/05/25 15:13 Calculated Osmolality 295 mOsm/kg (285-295) 06/05/25 15:13 Calcium 10.2 mg/dL (8.5-10.5) 06/05/25 15:13 Total Bilirubin 0.4 mg/dL (0.15-1.2) 06/05/25 15:13 AST 13 U/L (0-32) 06/05/25 15:13 ALT 19 U/L (0-33) 06/05/25 15:13 Alkaline Phosphatase 55 U/L (35-105) 06/05/25 15:13 Troponin T Baseline < 6 ng/L (0-10) 06/05/25 15:13 Troponin T 120 Minute < 6.0 ng/L (0-10) 06/05/25 17:19 Delta Troponin T 0 ABS# (0-10) 06/05/25 17:19 Troponin T Hi Sens 6Hr < 6.0 ng/L (0-10) 06/05/25 21:27 Troponin T Hi Sens 6Hr Delta 0 ng/L (0-12) 06/05/25 21:27 Total Protein 6.7 g/dL (6.6-8.7) 06/05/25 15:13 Albumin 4.5 g/dL (3.5-5.2) 06/05/25 15:13 Globulin 2.2 g/dL (1.3-4.6) 06/05/25 15:13 Vitals Last Vital Signs Temp 98.0 F 06/06/25 07:46 Pulse 72 06/06/25 07:46 Resp 17 06/06/25 07:46 BP 138/76 06/06/25 07:46 Pulse Ox 97 06/06/25 07:46 O2 Del Method Room Air 06/06/25 03:53 Discharge Plan Discharge Patient Disposition: Home Condition: Stable Prescriptions: New ranolazine 1,000 mg tablet extended release 12 hr 1,000 mg PO BID Qty: 60 0RF Continued albuterol sulfate 90 mcg/actuation HFA aerosol inhaler 2 puff INHALATION QID PRN (Reason: Shortness Of Breath) Qty: 6.7 2RF nitroglycerin 0.4 mg tablet, sublingual 0.4 mg sublingual Q5M PRN (Reason: Chest Pain) Rx Instructions: do not exceed 3 doses per episode hydrochlorothiazide 25 mg tablet 25 mg PO QAM magnesium carb,citrate,oxide 300 mg magnesium tablet 300 mg PO DAILY cetirizine [Zyrtec] 10 mg tablet 10 mg PO DAILY Qty: 90 1RF enalapril maleate 20 mg tablet 20 mg PO QAM Qty: 90 1RF metoprolol tartrate 50 mg tablet 50 mg PO BID Qty: 180 1RF duloxetine 60 mg capsule,delayed release(DR/EC) 60 mg PO DAILY Qty: 90 1RF ropinirole 0.5 mg tablet 0.5 mg PO DAILY Qty: 90 1RF clonazepam 1 mg tablet 1 mg PO DAILY PRN (Reason: Anxiety) Qty: 30 0RF calcium carbonate 500 mg calcium (1,250 mg) Tablet 500 mg PO BEDTIME prednisone 20 mg tablet 20 mg PO DAILY hydrocodone-acetaminophen 7.5-325 mg tablet 1 tab PO Q4H PRN (Reason: Pain) pantoprazole 40 mg tablet,delayed release (DR/EC) 40 mg PO BID cholecalciferol (vitamin D3) [Vitamin D3] 25 mcg (1,000 unit) Tablet 25 mcg PO DAILY aspirin 81 mg Tablet,Delayed Release (Dr/Ec) 81 mg PO DAILY Qty: 30 0RF carisoprodol 350 mg tablet 350 mg PO TID PRN (Reason: muscle spasms) prednisone 5 mg tablet 5 mg PO DAILY Changed isosorbide mononitrate 30 mg tablet extended release 24 hr 60 mg PO DAILY Qty: 90 3RF Discontinued ranolazine 500 mg tablet extended release 12 hr 500 mg PO BID Discharge Order = DC NOW: Discharge Order (Routine); Ordered 06/06/25 Ordered By: Kunal Sloan Referrals: Hillary Martínez DO [Primary Care Provider] - 1 week Discharge Diet: Cardiac and Low Salt Discharge Activity: Increase activity as tolerated Patient Instructions: Chest Pain (GEN), How to Stop Smoking (GEN), Opioid Safety, Patient Portal & Janet Instructions Activity Restrictions/Additional Instructions: Return for chest pain that is severe or unrelieved at home with nitroglycerin. Return for chest pain with associated shortness of breath or diaphoresis Discharge Attestations Time Spent in Discharge Care*: greater than 30 min Quality Metrics Clinical Quality Measures [ No reported AMI, CVA or VTE this stay] Coding Level of Care Code Acute Code for Chg Fwd Diagnoses Coronary artery vasospasm I20.1 Hypertension I10 Hyperlipidemia E78.5 Family history of premature coronary artery disease Z82.49 Tobacco use disorder F17.200 Chest pain R07.9
== END 2025-06-06 12:58 | disposition home or self-care (01) ==
LOC: ER 17:50 → CSU 17:52
PROVIDERS: Admitting Provider Internal Medicine; Emergency Provider Family Medicine; PCP Student in an Organized Health Care Education/Training Program; Visit Provider Internal Medicine
DX: I20.1 Angina pectoris with documented spasm (principal); I10 Essential (primary) hypertension; E78.5 Hyperlipidemia, unspecified; Z82.49 Family history of ischemic heart disease and other diseases of the circulatory system; Z79.82 Long term (current) use of aspirin; K21.9 Gastro-esophageal reflux disease without esophagitis; G47.33 Obstructive sleep apnea (adult) (pediatric); Z99.89 Dependence on other enabling machines and devices; F17.210 Nicotine dependence, cigarettes, uncomplicated
CPT/HCPCS: 36415; 71045; 80053; 84484; 85025; 93005; 96365; 96366; 96367; 96372; 96375; 96376; 99285; G0378; J1650; J2270; J2405; J2470; J3490; J9999

== ENCOUNTER 2025-06-26 19:23 | Emergency (ER) | payer OTHER, SELFPAY ==
[2025-06-26] VITALS (8 sets, daily range): BP systolic 112–141; BP diastolic 66–85; PULSE 67–93; RESP 16–18; TEMP 37.1; O2SAT 96–99; BMI 29.6
--- OUTSIDE RECORDS SUMMARY | 2025-06-26 19:28 | XMS_ITS | Clinical Summary ---
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 Role Phone Unavailable Primary Care Provider Unavailabl e Encounters Date Type Department Care Team Description 04/29/2025 Orders Only [facility] [id number] [place] [address] Raquel Domínguez MD Mass of skin of left thumb (Primary Dx) 04/27/2025 External Device Data STL ABSTRACTION Provider, Abstract 04/07/2025 External Device Data STL ABSTRACTION Provider, Abstract 04/07/2025 External Device Data STL ABSTRACTION Provider, Abstract 04/07/2025 External Device Data STL ABSTRACTION Provider, Abstract 04/07/2025 External Device Data STL ABSTRACTION Provider, Abstract 04/06/2025 External Device Data STL ABSTRACTION Provider, Abstract 03/31/2025 Telephone [place] [address] [place] [phone] Vanessa Gorman MD General from Last 3 [...] st Contact Info) Description 08/16/2025 9:30 AM 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 [facility] [address] [place] [phone] Emi Resendiz FNP [address] [address] Health Maintenance Due Date Last [...] 2) 02/13/2018 INFLUENZA VACCINE (#1) [address] [place] [address] [employer] [address] [place] [address]
--- NOTE | 2025-06-26 19:49 | XRR_ITS ---
PROCEDURE INFORMATION: Exam: XR Chest Exam date and time: 06/26/2025 7:54 PM Age: 55 years old Clinical indication: Pain; Chest pressure; Additional info: Chest pressure; HX cardiomyeopathy & cardiac spasms TECHNIQUE: Imaging protocol: Radiologic exam of the chest. Views: 1 view. COMPARISON: CR (CHEST, ) 06/05/2025 3:00 PM FINDINGS: Lungs: Unremarkable. No consolidation. Pleural spaces: Unremarkable. No pleural effusion. No pneumothorax. Heart/Mediastinum: Unremarkable. No cardiomegaly. Bones/joints: Anterior cervical spine fixation plate and screws. Small osteoarthritis. XR/XR chest 1V portable [id number] IMPRESSION: No acute findings.
--- NOTE | 2025-06-26 19:49 | ECG_ITS ---
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 Measurements Intervals [place] Rate: 92 P: 61 AL: 135 QRS: 46 QRSD: 93 T: 63 QT: 346 QTc: 429 Interpretive Statements SINUS RHYTHM LOW QRS VOLTAGE IN PRECORDIAL LEADS [QRS DEFLECTION < 1.0 mV IN CHEST LEADS] Compared to ECG 06/05/2025 21:55:01 Low QRS voltage now present Electronically Signed On 06-27-2025 21:29:59 CDT by Sreedhar Henson M.D. [email or web address] [id number]
[2025-06-26 20:14] LABS: Hematocrit 36.7 % (36-47); Hemoglobin 11.90 g/dL (11.27-16.99); Mean Corpuscular HGB Conc 32.4 g/dL (30-55); Mean Corpuscular Hemoglobin 29.9 pg (27-33); Mean Corpuscular Volume 92.2 fl (85-98); Nucleated Red Blood Cells % 0 %; Platelet Count 323 10^3/cmm (157-399); Red Blood Count 3.98 10^6/uL (3.85-5.65); White Blood Count 11.33 10^3/uL (3.29-11.43)
[2025-06-26 20:33] LABS: Alanine Aminotransferase 17 U/L (0-33); Albumin Level 4.4 g/dL (3.5-5.2); Alkaline Phosphatase 65 U/L (35-105); Anion Gap 18.8 (5-19); Aspartate Amino Transferase 9 U/L (0-32); Blood Urea Nitrogen 17 mg/dL (6-20); Calcium 9.4 mg/dL (8.5-10.5); Carbon Dioxide 23 mmol/L (22-29); Chloride 103 mmol/L (98-107); Creatinine Clr Calc Pharmacy 44.8119; Globulin 2.4 g/dL (1.3-4.6); Glucose 160 mg/dL (65-115); Lipase 43 U/L (13-60); Osmolality Calculated 297 mOsm/kg (285-295); Potassium 3.8 mmol/L (3.5-5.1); Sodium 141 mmol/L (136-145); Total Protein 6.8 g/dL (6.6-8.7)
[2025-06-26 20:36] LABS: Troponin(5th) Baseline < 6 ng/L (0-10)
[2025-06-26] MEDS: nitroglycerin 1 gm/inch oint Pkt 1 INCH TOPICAL (20:36)
[2025-06-26] MEDS: midazolam 1 mg/mL INJ 2 mL 2 MG IVP (20:36)
[2025-06-26 21:01] LABS: NT Pro B Type Natriuretic Pept 74 pg/mL (0-125)
[2025-06-26 21:59] LABS: Troponin 5 2HR < 6.0 ng/L (0-10); Troponin 5 2HR Delta 0 ABS# (0-10)
--- NOTE | 2025-06-26 22:05 | W.ED.CHESTPA ---
HPI - Chest Pain General: Chief Complaint: Chest Pain Stated Complaint: Chest Pain Time Seen by Provider: 06/26/25 19:38 History of Present Illness: Patient is a 55-year-old female with a known history of coronary artery spasm and stress-induced cardiomyopathy who presents to the emergency department with acute chest pain. Patient reports that she was active today, walking around, when she began experiencing intermittent chest pain. Upon returning home, she developed diaphoresis and worsening chest pain. She initially attempted to self-medicate with Xanax to determine if symptoms were anxiety-related, but this provided no relief. She subsequently took three sublingual nitroglycerin tablets at 10-minute intervals with only temporary, minimal relief. The chest pain is described as a pressure sensation with radiation to the neck, jaw, and left arm. Patient notes that these symptoms are similar to her previous episodes of coronary artery spasm. She reports that during a previous episode, her troponin levels were elevated (6.6-6.5), and she was diagnosed with stress-induced cardiomyopathy rather than an obstructive coronary event, as her coronary arteries were found to be patent. The patient expresses anxiety about her condition, particularly since her father from cardiac issues. She denies fever, cough, or vomiting, though mentions that she hasn't been feeling well recently and is currently on steroids for PMR Related Data Home Medications ?Medication ?Instructions ?Recorded ?Confirmed calcium carbonate 500 mg PO BEDTIME 01/31/23 06/21/25 cholecalciferol (vitamin D3) 25 25 mcg PO DAILY 05/07/25 06/21/25 mcg (1,000 unit) tablet (Vitamin D3) hydrocodone 7.5 mg-acetaminophen 1 tab PO Q4H PRN Pain 05/07/25 06/21/25 325 mg tablet pantoprazole 40 mg tablet,delayed 40 mg PO BID 05/07/25 06/21/25 release prednisone 20 mg tablet 20 mg PO DAILY 05/07/25 06/21/25 magnesium carb,citrate,oxide 300 mg PO DAILY 05/13/25 06/21/25 nitroglycerin 0.4 mg sublingual 0.4 mg sublingual Q5M PRN Chest 05/13/25 06/21/25 tablet Pain carisoprodol 350 mg tablet 350 mg PO TID PRN muscle spasms 06/04/25 06/21/25 prednisone 5 mg tablet 5 mg PO DAILY 06/06/25 06/21/25 Previous Rx's ?Medication ?Instructions ?Recorded albuterol sulfate 90 mcg/actuation 2 puff inhalation QID PRN 09/17/24 aerosol inhaler Shortness Of Breath #6.7 grams cetirizine 10 mg tablet (Zyrtec) 10 mg PO DAILY #90 tabs 01/21/25 enalapril maleate 20 mg tablet 20 mg PO QAM #90 tabs 03/16/25 metoprolol tartrate 50 mg tablet 50 mg PO BID #180 tabs 03/22/25 clonazepam 1 mg tablet 1 mg PO DAILY PRN Anxiety #30 tabs 04/27/25 duloxetine 60 mg capsule,delayed 60 mg PO DAILY #90 caps 04/27/25 release ropinirole 0.5 mg tablet 0.5 mg PO DAILY #90 tabs 04/27/25 isosorbide mononitrate 30 mg 60 mg (2 x 30 mg) PO DAILY #90 tabs 06/06/25 tablet,extended release 24 hr ranolazine 1,000 mg 1,000 mg PO BID #60 tabs 06/06/25 tablet,extended release,12 hr Allergies Allergy/AdvReac Type Severity Reaction Status Date / Time No Known Allergies Allergy Verified 06/26/25 19:30 PFS ED PFSH: Medical History Coronary artery vasospasm MARITZA (obstructive sleep apnea) Tobacco use disorder Chronic neck pain GERD without esophagitis Anxiety and depression Hypertension Surgical History History of hysterectomy Hx of appendectomy History of cholecystectomy Family History Father Congestive heart failure (CHF) Mother Diabetes Hypertension Cancer Breast Social History Smoking and tobacco/nicotine status: current every day tobacco/nicotine user cigarettes Packs smoked per day: 0.25 Quit status (tobacco/nicotine): considering quitting Second hand smoke exposure: No Alcohol intake: current Alcohol intake frequency: few times a week Substance/Drug Use: current Substance/Drug use frequency: few times a week Other substance/drug use details: 6 or 7 drinks a weekend Additional social history: Patient wants full CODE STATUS as discussed on 06/05/2025 with Kunal Sloan MD Adopted: No Lives independently: Yes Household members: spouse Marital status: Number of children: 4 Number of grandchildren: 3 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 branch: [employer] Current occupational status: employed 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 [employer] Current occupational exposures/hazards: No Pets and animals: No Sexually active: Yes Do you think of yourself as: Straight/Heterosexual Current gender identity: Female Female Reproductive History: Spontaneous abortions: No Physical Exam Const: COMMON NORMALS: no acute distress GENERAL APPEARANCE: cooperative; not ill appearing and not frail appearing HENMT: COMMON NORMALS: normocephalic, atraumatic and Normal external nose present HEAD & SCALP: normocephalic and atraumatic FACE & SINUS: normal facial exam and face symmetric NOSE: Normal external nose present Eye: COMMON NORMALS: Equal, round and reactive pupils present and EOMs intact bilaterally PUPIL: Yes Equal, round and reactive pupils present Neck/C-Spine: GENERAL: Yes trachea midline Chest: CHEST: Yes Symmetrical chest wall rise Resp: COMMON NORMALS: normal respiratory effort, No retractions, No use of accessory muscles and clear to auscultation bilaterally AUSCULTATION: clear to auscultation bilaterally Cardio: COMMON NORMALS: regular rate and regular rhythm RATE: regular rate RHYTHM: regular rhythm GI: COMMON NORMALS: Normal to inspection, nondistended, normoactive bowel sounds present Extremity: COMMON NORMALS: no pedal edema Neuro: ASAD COMA SCALE: document GCS findings Asad coma scale eye opening: Spontaneous [place]oll[place] coma scale verbal response: Orientated Stollings coma scale motor response: Obey commands Stollings coma scale total score: 15 SENSORY EXAM: Yes extremities (intact) Psych: COMMON NORMALS: speech normal SPEECH: Yes normal speech Skin: COMMON NORMALS: no rashes or lesions noted GENERAL SKIN EXAM: no rashes or lesions noted Course Vital Signs: Vital signs: Vital Signs Temperature 98.7 F 06/26/25 19:24 Pulse Rate 67 06/26/25 23:40 Respiratory Rate 16 06/26/25 23:40 Blood Pressure 124/67 06/26/25 23:40 Pulse Oximetry 97 06/26/25 23:40 Oxygen Delivery Me thod Room Air 06/26/25 22:55 MDM - Chest Pain Medical Decision Making Vital signs are normal. Chest x-ray is nonacute. Creatinine is 1.3. BNP is 74. Baseline and 120-minute troponins are nondetectable. CBC is normal. Lipase is 43. She was given midazolam here as well as Nitropaste with relief of anxiety, but minimal relief in chest discomfort. Morphine and Zofran were given. We increased Nitropaste to 2 inches. Pain is significantly reduced. She does not wish to be admitted. She would rather go home. She is given morphine and Toradol with relief. She knows to return with return of symptoms. Lab Data 06/26/25 20:08 06/26/25 20:08 Radiology Impressions Chest X-Ray 06/26/25 19:49 IMPRESSION: No acute findings. Laboratory Results WBC 11.33 10^3/uL (3.29-11.43) 06/26/25 20:08 RBC 3.98 10^6/uL (3.85-5.65) 06/26/25 20:08 Hgb 11.90 g/dL (11.27-16.99) 06/26/25 20:08 Hct 36.7 % (36-47) 06/26/25 20:08 MCV 92.2 fl (85-98) 06/26/25 20:08 MCH 29.9 pg (27-33) 06/26/25 20:08 MCHC 32.4 g/dL (30-55) 06/26/25 20:08 RDW 13.0 % (12.1-15.1) 06/26/25 20:08 Plt Count 323 10^3/cmm (157-399) 06/26/25 20:08 MPV 9.9 fL (7.4-10.4) 06/26/25 20:08 Neut % (Auto) 72.7 % 06/26/25 20:08 Lymph % (Auto) 21.3 % 06/26/25 20:08 [place] % (Auto) 4.9 % 06/26/25 20:08 Eos % (Auto) 0.2 % 06/26/25 20:08 Baso % (Auto) 0.2 % 06/26/25 20:08 Neut # (Auto) 8.25 10^3/uL (1.8-7.7) H 06/26/25 20:08 Lymph # (Auto) 2.4 10^3/uL (0.8-4.8) 06/26/25 20:08 [place] # (Auto) 0.6 10^3/uL (0.2-0.9) 06/26/25 20:08 Eos # (Auto) 0.0 10^3/uL (0.0-0.8) 06/26/25 20:08 Baso # (Auto) 0.0 10^3/uL (0.0-0.1) 06/26/25 20:08 Nucleated RBC % (auto) 0 % 06/26/25 20:08 Nucleated RBCs # 0.0 /100WBC 06/26/25 20:08 Sodium 141 mmol/L (136-145) 06/26/25 20:08 Potassium 3.8 mmol/L (3.5-5.1) 06/26/25 20:08 Chloride 103 mmol/L (98-107) 06/26/25 20:08 Carbon Dioxide 23 mmol/L (22-29) 06/26/25 20:08 Anion Gap 18.8 (5-19) 06/26/25 20:08 BUN 17 mg/dL (6-20) 06/26/25 20:08 Creatinine 1.3 mg/dL (0.5-0.9) H 06/26/25 20:08 GFR Calculation 42.2 mL/min (90-130) L 06/26/25 20:08 Glucose 160 mg/dL (65-115) H 06/26/25 20:08 Calculated Osmolality 297 mOsm/kg (285-295) H 06/26/25 20:08 Calcium 9.4 mg/dL (8.5-10.5) 06/26/25 20:08 Total Bilirubin 0.3 mg/dL (0.15-1.2) 06/26/25 20:08 AST 9 U/L (0-32) 06/26/25 20:08 ALT 17 U/L (0-33) 06/26/25 20:08 Alkaline Phosphatase 65 U/L (35-105) 06/26/25 20:08 Troponin T Baseline < 6 ng/L (0-10) 06/26/25 20:08 Troponin T 120 Minute < 6.0 ng/L (0-10) 06/26/25 21:38 Delta Troponin T 0 ABS# (0-10) 06/26/25 21:38 NT-Pro-B Natriuret Pep 74 pg/mL (0-125) 06/26/25 20:08 Total Protein 6.8 g/dL (6.6-8.7) 06/26/25 20:08 Albumin 4.4 g/dL (3.5-5.2) 06/26/25 20:08 Globulin 2.4 g/dL (1.3-4.6) 06/26/25 20:08 Lipase 43 U/L (13-60) 06/26/25 20:08 All radiology interpretation(s) finalized by discharge Discharge Plan Discharge Patient Disposition: Home Clinical Impression: Coronary artery vasospasm, Chest pain Condition: Stable Prescriptions: No Action albuterol sulfate 90 mcg/actuation HFA aerosol inhaler 2 puff INHALATION QID PRN (Reason: Shortness Of Breath) Qty: 6.7 2RF nitroglycerin 0.4 mg tablet, sublingual 0.4 mg sublingual Q5M PRN (Reason: Chest Pain) Rx Instructions: do not exceed 3 doses per episode magnesium carb,citrate,oxide 300 mg magnesium tablet 300 mg PO DAILY cetirizine [Zyrtec] 10 mg tablet 10 mg PO DAILY Qty: 90 1RF enalapril maleate 20 mg tablet 20 mg PO QAM Qty: 90 1RF metoprolol tartrate 50 mg tablet 50 mg PO BID Qty: 180 1RF duloxetine 60 mg capsule,delayed release(DR/EC) 60 mg PO DAILY Qty: 90 1RF ropinirole 0.5 mg tablet 0.5 mg PO DAILY Qty: 90 1RF clonazepam 1 mg tablet 1 mg PO DAILY PRN (Reason: Anxiety) Qty: 30 0RF calcium carbonate 500 mg calcium (1,250 mg) Tablet 500 mg PO BEDTIME prednisone 20 mg tablet 20 mg PO DAILY hydrocodone-acetaminophen 7.5-325 mg tablet 1 tab PO Q4H PRN (Reason: Pain) pantoprazole 40 mg tablet,delayed release (DR/EC) 40 mg PO BID cholecalciferol (vitamin D3) [Vitamin D3] 25 mcg (1,000 unit) Tablet 25 mcg PO DAILY carisoprodol 350 mg tablet 350 mg PO TID PRN (Reason: muscle spasms) prednisone 5 mg tablet 5 mg PO DAILY ranolazine 1,000 mg tablet extended release 12 hr 1,000 mg PO BID Qty: 60 0RF isosorbide mononitrate 30 mg tablet extended release 24 hr 60 mg PO DAILY Qty: 90 3RF Discharge Orders: Discharge ED (Routine); Ordered 06/26/25 Ordered By: Tad Alvarez Referrals: Hillary Martínez DO [Primary Care Provider] - 1-3 days Patient Instructions: Chest Pain (ED), Opioid Safety, Pain Management, Patient Portal & Janet Instructions Activity Restrictions/Additional Instructions: Return for repeated episodes or worsening chest discomfort, shortness of breath, fever, other concerning symptoms. Follow-up with your doctor. Call on Saturday and let them know you are here. Print Language: [place] Coding Level of Care Code ED Alterations Workroom Clerk for Chg Fwd Heart Score HEART Score Components History: Slightly Suspicous EKG: Normal Age: 45-64 yrs Risk Factors: 1 or 2 Risk Factors Troponin: Baseline Trop <16 ng/L HEART Score RESULT HEART Score: 2
[2025-06-26] MEDS: ondansetron 2 mg/ML SDV 2 mL 4 MG IVP (22:08)
[2025-06-26] MEDS: morphine 4 mg/mL SDV 1 mL IVP (22:08)
[2025-06-26] MEDS: nitroglycerin 1 gm/inch oint Pkt 2 INCH TOPICAL (22:52)
[2025-06-26] MEDS: morphine 4 mg/mL SDV 1 mL 2 MG IVP (23:30)
== END 2025-06-26 23:46 | disposition home or self-care (01) ==
PROVIDERS: Emergency Provider Emergency Medicine; PCP Student in an Organized Health Care Education/Training Program
DX: I20.1 Angina pectoris with documented spasm (principal); I10 Essential (primary) hypertension; R07.9 Chest pain, unspecified; F17.210 Nicotine dependence, cigarettes, uncomplicated
CPT/HCPCS: 36415; 71045; 80053; 83690; 83880; 84484; 85025; 93005; 96361; 96374; 96375; 96376; 99285; J1885; J2250; J2270; J2405; J7040; J9999

== ENCOUNTER 2025-06-29 13:12 | Emergency (ER) | payer OTHER, SELFPAY ==
[2025-06-29] VITALS (8 sets, daily range): BP systolic 127–140; BP diastolic 70–83; PULSE 66–75; RESP 16–18; TEMP 36.7; O2SAT 96–99; BMI 29.6
--- OUTSIDE RECORDS SUMMARY | 2025-06-29 13:18 | XMS_ITS | Clinical Summary ---
Author Organization [facility] Address [address] [place] [address] Phone Care Team Providers Care Senior Counsel Name Role Phone Unavailable Primary Care Provider Unavailabl e Encounters Date Type Department Care Team Description 04/29/2025 Orders Only [place] [id number] [place] [address] Raquel Domínguez MD Mass of skin of left thumb (Primary Dx) 04/27/2025 External Device Data STL ABSTRACTION Provider, Abstract 04/07/2025 External Device Data STL ABSTRACTION Provider, Abstract 04/07/2025 External Device Data STL ABSTRACTION Provider, Abstract 04/07/2025 External Device Data STL ABSTRACTION Provider, Abstract 04/07/2025 External Device Data STL ABSTRACTION Provider, Abstract 04/06/2025 External Device Data STL ABSTRACTION Provider, Abstract 03/31/2025 Telephone [place] [address] [place] [phone] Vanessa Gorman MD General from Last 3 [...] st Contact Info) Description 08/16/2025 9:30 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 [facility] [address] [place] [phone] Emi Resendiz FNP [address] [phone] Health Maintenance Due Date Last [...] 2) 02/13/2018 INFLUENZA VACCINE (#1) [address] [place] [address] [employer] [id number]
--- NOTE | 2025-06-29 13:25 | XR_ITS ---
WS: [id number] Portable AP upright chest, 06/29/2025 Clinical Data: chest pain Comparison: Portable chest, 06/26/2025 Findings: No nodules, masses or effusions are seen. The heart is slightly enlarged. The pulmonary vascularity is not increased. No pneumonia or pneumothorax is seen. Monitor leads are on the chest wall. There is an anterior cervical disc fusion. XR/XR chest 1V portable [id number] Impression: Minimal cardiomegaly.
--- NOTE | 2025-06-29 13:25 | ECG_ITS ---
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 Measurements Intervals [place] Rate: 66 P: 52 [place]: 130 QRS: 3 QRSD: 79 T: 30 QT: 405 QTc: 425 Interpretive Statements SINUS RHYTHM LOW QRS VOLTAGE IN PRECORDIAL LEADS [QRS DEFLECTION < 1.0 mV IN CHEST LEADS] PATTERN CONSISTENT WITH PULMONARY DISEASE INTERPRETATION BASED ON A DEFAULT AGE OF 40 YEARS Compared to ECG 06/26/2025 19:28:44 No significant changes Electronically Signed On 06-29-2025 23:49:51 CDT by Sreedhar Henson M.D. [id number]
--- NOTE | 2025-06-29 13:29 | ED_ITS ---
HPI - Chest Pain 2 General: Chief Complaint: Chest Pain Stated Complaint: chest pain took nightro @1303 Time Seen by Provider: 06/29/25 13:24 History of Present Illness: 55-year-old female with a history of cor onary artery vasospasm with normal coronary arteries, obstructive sleep apnea, obesity, GERD, hypertension, anxiety and depression who presents to the emergency room with chest pain. She had a fairly recent heart cath and follows with cardiology for coronary vasospasm. Heart cath was normal. She took some nitro today when this started and still has pain. She said the pain is radiating to her jaw. She says it waxes and wanes. No cough. No nausea or vomiting. No altered mental status. Related Data Home Medications ?Medication ?Instructions ?Recorded ?Confirmed calcium carbonate 500 mg PO BEDTIME 01/31/23 0 06/21/25 cholecalciferol (vitamin D3) 25 25 mcg PO DAILY 06/21/25 mcg (1,000 unit) tablet (Vitamin D3) hydrocodone 7.5 mg-acetaminophen 1 tab PO Q4H PRN Pain 05/07/25 06/21/25 325 mg tablet pantoprazole 40 mg tablet,delayed 40 mg PO BID 5 06/21/25 release prednisone 20 mg tablet 20 mg PO DAILY 05/07/2505/25 magnesium carb,citrate,oxide 300 mg PO DAILY 05/13/25 06/21/25 nitroglycerin 0.4 mg sublingual 0.4 mg sublingual Q5M PRN Chest 05/13/25 06/21/25 tablet Pain carisoprodol 350 mg tablet 350 mg PO TID PRN muscle sp asms 06/04/25 06/21/25 prednisone 5 mg tablet 5 mg PO DAILY 06/06/2506/21 Previous Rx's ?Medication ?Instructions ?Recorded albuterol sulfate 90 mcg/actuation 2 puff inhalation Q ID PRN 09/17/24 aerosol inhaler Shortness Of Breath #6.7 gra ms cetirizine 10 mg tablet (Zyrtec) 10 mg PO DAILY #90 ta bs 01/21/25 enalapril maleate 20 mg tablet 20 mg PO QAM #90 tabs 0 03/16/25 metoprolol tartrate 50 mg tablet 50 mg PO BID #180 tab s 03/22/25 clonazepam 1 mg tablet 1 mg PO DAILY PRN Anxiety #3 0 tabs 04/27/25 duloxetine 60 mg capsule,delayed 60 mg PO DAILY #90 ca ps 04/27/25 release ropinirole 0.5 mg tablet 0.5 mg PO DAILY #90 tabs 02/14 isosorbide mononitrate 30 mg 60 mg (2 x 30 mg) PO NUSRAT Y #90 tabs 06/06/25 tablet,extended release 24 hr ranolazine 1,000 mg 1,000 mg PO BID #60 tabs tablet,extended release,12 hr Allergies Allergy/AdvReac Type Severity Reaction Status Date / Time No Known Allergies Allergy Verified 06/29/25 13:23 Review of Systems 2 Narrative: Constitutional symptoms: Negative except as documented in HPI. Skin symptoms: Negative except as documented in HPI. Eye symptoms: Negative except as documented in HPI. ENMT symptoms: Negative except as documented in HPI. Respiratory symptoms: Negative except as documented in HPI. Cardiovascular symptoms: Negative except as documented in HPI. Gastrointestinal symptoms: Negative except as documented in HPI. Genitourinary symptoms: Negative except as documented in HPI. Musculoskeletal symptoms: Negative except as documented in HPI. Neurologic symptoms: Negative except as documented in HPI. Psychiatric symptoms: Negative except as documented in HPI. Endocrine symptoms: Negative except as documented in HPI. PFSH ED 2 PFSH: Medical History (Updated 06/29/25 @ 16:21 by María Avelar MD) Coronary artery vasospasm MARITZA (obstructive sleep apnea) Tobacco use disorder Chronic neck pain GERD without esophagitis Anxiety and depression Hypertension Surgical History History of hysterectomy Hx of appendectomy History of cholecystectomy Family History Father Congestive heart failure (CHF) Mother Diabetes Hypertension Cancer Breast Social History Smoking and tobacco/nicotine status: current every day tobacco/nicotine user cigarettes Packs smoked per day: 0.25 Quit status (tobacco/nicotine): considering quitting Second hand smoke exposure: No Alcohol intake: current Alcohol intake frequency: few times a week Substance/Drug Use: current Substance/Drug use frequency: few times a week Other substance/drug use details: 6 or 7 drinks a weekend Additional social history: Patient wants full CODE STATUS as discussed on 06/05/2025 with Kunal Sloan MD Adopted: No Lives independently: Yes Household members: spouse Marital status: Number of children: 4 Number of grandchildren: 3 Education level details: [employer] service: Yes branch: [place] Current occupational status: employed 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 Skin: Warm, dry. Head: Normocephalic, atraumatic. Neck: Supple, trachea midline. Eye: Extraocular movements are intact. Ears, nose, mouth and throat: mucosa moist. Cardiovascular: Regular, Normal peripheral perfusion. Respiratory: Lungs are clear to auscultation, respirations are non-labored, breath sounds are equal, Symmetrical chest wall expansion. Gastrointestinal: Soft, Nontender, Non distended Musculoskeletal: Normal ROM, no deformity. Neurological: Alert and oriented, No focal neurological deficit observed. Psychiatric: Cooperative, appropriate mood & affect. Course 2 Vital Signs: Vital signs: Vital Signs Temperature 98.0 F 06/29/25 13:14 Pulse Rate 69 06/29/25 16:44 Respiratory Rate 16 06/29/25 16:44 Blood Pressure 127/70 06/29/25 16:44 Pulse Oximetry 97 06/29/25 16:44 Oxygen Delivery Me thod Room Air 06/29/25 16:44 MDM - Chest Pain Medical Decision Making Differential diagnosis for patient with chest pain includes but is not limited to and based on the above HPI, review of systems and physical exam: Pneumonia. unstable angina. angina. Acute coronary syndrome / IA. Pulmonary embolism. Costochondritis / musculoskeletal. Pleurisy. Pericarditis. Esophageal spasm. Pancreatis. Cholecystitis. Orders placed to evaluate differential diagnosis based on the above differential, HPI and physical exam EKG: Time 1318. Rate 66. Normal sinus rhythm, No ST-T changes, no ectopy, normal [place] & QRS intervals, This was reviewed and interpreted by myself the ER physician at 1322 Repeat EKG: Time 1528. Rate 66. Normal sinus rhythm, No ST-T changes, no ectopy, normal [place] & QRS intervals, This was reviewed and interpreted by myself the ER physician at 1532. No changes from EKG put on previously in the ER today. Chest x-ray: No acute process. No infiltrate. No pneumothorax. This was reviewed and interpreted by myself the emergency room physician. I also reviewed the radiology report. Lab Review: Laboratory results were reviewed and interpreted by myself the emergency room physician. No leukocytosis. No anemia. No renal failure. Serial cardiac markers are negative. Lipase is negative. I reviewed the patient's medical record. 55-year-old female with a history of coronary artery vasospasm with normal coronary arteries, obstructive sleep apnea, obesity, GERD, hypertension, anxiety and depression. I reviewed her most recent cardiology notes. I also reviewed cath report. She had normal coronary arteries. Hyperdynamic left ventricle. Reexamination: Patient is feeling very frustrated with the continued chest pain. Her blood pressure has been good. Her heart rates been good. No altered mental status. No focal motor deficits. Toradol helped only slightly. Consultation: I spoke with Dr. Mejia who is familiar with the patient. He says increase her isosorbide from 60 daily to 60 in the morning and 30 at night. Assessment and plan: Chest pain ?IV Toradol, IV Ativan and IV morphine - Discharged home - Discussed plan with patient. Answered any questions. - Evaluation and treatment of this problem were appropriate in the emergency setting. Lab Data 06/29/25 13:58 06/29/25 13:58 Radiology Impressions Chest X-Ray 06/29/25 13:25 Impression: Minimal cardiomegaly. Laboratory Results WBC 8.37 10^3/uL (3.29-11.43) 06/29/25 13:58 RBC 3.68 10^6/uL (3.85-5.65) L 06/29/25 13:58 Hgb 10.90 g/dL (11.27-16.99) L 06/29/25 13:58 Hct 34.3 % (36-47) L 06/29/25 13:58 MCV 93.2 fl (85-98) 06/29/25 13:58 MCH 29.6 pg (27-33) 06/29/25 13:58 MCHC 31.8 g/dL (30-55) 06/29/25 13:58 RDW 12.7 % (12.1-15.1) 06/29/25 13:58 Plt Count 267 10^3/cmm (157-399) 06/29/25 13:58 MPV 10.1 fL (7.4-10.4) 06/29/25 13:58 Neut % (Auto) 85.2 % 06/29/25 13:58 Lymph % (Auto) 12.4 % 06/29/25 13:58 Duchesne % (Auto) 1.1 % 06/29/25 13:58 Eos % (Auto) 0.1 % 06/29/25 13:58 Baso % (Auto) 0.2 % 06/29/25 13:58 Neut # (Auto) 7.13 10^3/uL (1.8-7.7) 06/29/25 13:58 Lymph # (Auto) 1.0 10^3/uL (0.8-4.8) 06/29/25 13:58 Duchesne # (Auto) 0.1 10^3/uL (0.2-0.9) L 06/29/25 13:58 Eos # (Auto) 0.0 10^3/uL (0.0-0.8) 06/29/25 13:58 Baso # (Auto) 0.0 10^3/uL (0.0-0.1) 06/29/25 13:58 Nucleated RBC % (auto) 0 % 06/29/25 13:58 Nucleated RBCs # 0.0 /100WBC 06/29/25 13:58 Sodium 139 mmol/L (136-145) 06/29/25 13:58 Potassium 4.2 mmol/L (3.5-5.1) 06/29/25 13:58 Chloride 102 mmol/L (98-107) 06/29/25 13:58 Carbon Dioxide 25 mmol/L (22-29) 06/29/25 13:58 Anion Gap 16.2 (5-19) 06/29/25 13:58 BUN 15 mg/dL (6-20) 06/29/25 13:58 Creatinine 1.0 mg/dL (0.5-0.9) H 06/29/25 13:58 GFR Calculation 57.1 mL/min (90-130) L 06/29/25 13:58 Glucose 189 mg/dL (65-115) H 06/29/25 13:58 Calculated Osmolality 294 mOsm/kg (285-295) 06/29/25 13:58 Calcium 9.3 mg/dL (8.5-10.5) 06/29/25 13:58 Total Bilirubin 0.4 mg/dL (0.15-1.2) 06/29/25 13:58 AST 12 U/L (0-32) 06/29/25 13:58 ALT 18 U/L (0-33) 06/29/25 13:58 Alkaline Phosphatase 52 U/L (35-105) 06/29/25 13:58 Troponin T Baseline < 6 ng/L (0-10) 06/29/25 13:58 Troponin T 120 Minute < 6.0 ng/L (0-10) 06/29/25 15:42 Delta Troponin T 0 ABS# (0-10) 06/29/25 15:42 NT-Pro-B Natriuret Pep 148 pg/mL (0-125) H 06/29/25 13:58 Total Protein 6.0 g/dL (6.6-8.7) L 06/29/25 13:58 Albumin 4.3 g/dL (3.5-5.2) 06/29/25 13:58 Globulin 1.7 g/dL (1.3-4.6) 06/29/25 13:58 Lipase 22 U/L (13-60) 06/29/25 13:58 All radiology interpretation(s) finalized by discharge Clincial Decision Support The following clinical decision support tools were used to aid in care of the patient HEART Score -> History: Slightly Suspicous, EKG: Normal, Age: 45-64 yrs, Risk Factors: 1 or 2 Risk Factors, Troponin: Baseline Trop <16 ng/L. Resulting HEART Score: 2. Discharge Plan Discharge Patient Disposition: Home Clinical Impression: Chest pain Condition: Stable Prescriptions: No Action albuterol sulfate 90 mcg/actuation HFA aerosol inhaler 2 puff INHALATION QID PRN (Reason: Shortness Of Breath) Qty: 6.7 2RF nitroglycerin 0.4 mg tablet, sublingual 0.4 mg sublingual Q5M PRN (Reason: Chest Pain) Rx Instructions: do not exceed 3 doses per episode magnesium carb,citrate,oxide 300 mg magnesium tablet 300 mg PO DAILY cetirizine [Zyrtec] 10 mg tablet 10 mg PO DAILY Qty: 90 1RF enalapril maleate 20 mg tablet 20 mg PO QAM Qty: 90 1RF metoprolol tartrate 50 mg tablet 50 mg PO BID Qty: 180 1RF duloxetine 60 mg capsule,delayed release(DR/EC) 60 mg PO DAILY Qty: 90 1RF ropinirole 0.5 mg tablet 0.5 mg PO DAILY Qty: 90 1RF clonazepam 1 mg tablet 1 mg PO DAILY PRN (Reason: Anxiety) Qty: 30 0RF calcium carbonate 500 mg calcium (1,250 mg) Tablet 500 mg PO BEDTIME prednisone 20 mg tablet 20 mg PO DAILY hydrocodone-acetaminophen 7.5-325 mg tablet 1 tab PO Q4H PRN (Reason: Pain) pantoprazole 40 mg tablet,delayed release (DR/EC) 40 mg PO BID cholecalciferol (vitamin D3) [Vitamin D3] 25 mcg (1,000 unit) Tablet 25 mcg PO DAILY carisoprodol 350 mg tablet 350 mg PO TID PRN (Reason: muscle spasms) prednisone 5 mg tablet 5 mg PO DAILY ranolazine 1,000 mg tablet extended release 12 hr 1,000 mg PO BID Qty: 60 0RF isosorbide mononitrate 30 mg tablet extended release 24 hr 60 mg PO DAILY Qty: 90 3RF Discharge Orders: Discharge ED (Routine); Ordered 06/29/25 Ordered By: María Avelar Referrals: Hillary Martínez DO [Primary Care Provider] Patient Instructions: Chest Pain (ED), Opioid Safety, Pain Management, Patient Portal & Janet Instructions Activity Restrictions/Additional Instructions: Thank you for choosing [facility] for your healthcare needs today. You have been screened and evaluated and felt safe for discharge. Health conditions do change or evolve sometimes and as such it is important that you follow up with your Primary Doctor to be re checked, 3-5 days is a general good time frame for follow up. You are always welcome to return to the ED for re assessment if your symptoms are worsening or you have new concerns Print Language: Spanish Coding Level of Care Code ED Fishing Tool Operator for Trishag Fwd Heart Score HEART Score Components History: Slightly Suspicous EKG: Normal Age: 45-64 yrs Risk Factors: 1 or 2 Risk Factors Troponin: Baseline Trop <16 ng/L HEART Score RESULT HEART Score: 2
[2025-06-29 14:11] LABS: Hematocrit 34.3 % (36-47); Hemoglobin 10.90 g/dL (11.27-16.99); Mean Corpuscular HGB Conc 31.8 g/dL (30-55); Mean Corpuscular Hemoglobin 29.6 pg (27-33); Mean Corpuscular Volume 93.2 fl (85-98); Nucleated Red Blood Cells % 0 %; Platelet Count 267 10^3/cmm (157-399); Red Blood Count 3.68 10^6/uL (3.85-5.65); White Blood Count 8.37 10^3/uL (3.29-11.43)
[2025-06-29 14:29] LABS: Troponin(5th) Baseline < 6 ng/L (0-10)
[2025-06-29] MEDS: ondansetron 2 mg/ML SDV 2 mL 4 MG IVP (14:34)
[2025-06-29 14:35] LABS: NT Pro B Type Natriuretic Pept 148 pg/mL (0-125)
[2025-06-29 14:50] LABS: Alanine Aminotransferase 18 U/L (0-33); Albumin Level 4.3 g/dL (3.5-5.2); Alkaline Phosphatase 52 U/L (35-105); Aspartate Amino Transferase 12 U/L (0-32); Blood Urea Nitrogen 15 mg/dL (6-20); Calcium 9.3 mg/dL (8.5-10.5); Carbon Dioxide 25 mmol/L (22-29); Creatinine Clr Calc Pharmacy 58.2555; Globulin 1.7 g/dL (1.3-4.6); Glucose 189 mg/dL (65-115); Lipase 22 U/L (13-60); Total Protein 6.0 g/dL (6.6-8.7)
[2025-06-29 15:09] LABS: Osmolality Calculated 294 mOsm/kg (285-295); Sodium 139 mmol/L (136-145)
[2025-06-29 15:10] LABS: Anion Gap 16.2 (5-19); Chloride 102 mmol/L (98-107); Potassium 4.2 mmol/L (3.5-5.1)
--- NOTE | 2025-06-29 15:28 | ECG_ITS ---
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 Measurements Intervals [place] Rate: 66 P: 53 TN: 146 QRS: 11 QRSD: 91 T: 31 QT: 392 QTc: 412 Interpretive Statements SINUS RHYTHM LOW QRS VOLTAGE IN PRECORDIAL LEADS [QRS DEFLECTION < 1.0 mV IN CHEST LEADS] Compared to ECG 06/29/2025 13:18:02 No significant changes Electronically Signed On 06-29-2025 23:53:12 CDT by Sreedhar Henson M.D. [id number] [id number]
[2025-06-29 16:06] LABS: Troponin 5 2HR < 6.0 ng/L (0-10); Troponin 5 2HR Delta 0 ABS# (0-10)
[2025-06-29] MEDS: LORazepam 1 MG/0.5 ML injection IVP (16:52)
[2025-06-29] MEDS: morphine 4 mg/mL SDV 1 mL 2 MG IVP (16:52)
== END 2025-06-29 17:12 | disposition home or self-care (01) ==
PROVIDERS: Emergency Provider Emergency Medicine; PCP Student in an Organized Health Care Education/Training Program
DX: R07.9 Chest pain, unspecified (principal); F17.210 Nicotine dependence, cigarettes, uncomplicated; I10 Essential (primary) hypertension
CPT/HCPCS: 36415; 71045; 80053; 83690; 83880; 84484; 85025; 93005; 96374; 96375; 99285; J1885; J2060; J2270; J2405; J9999

== ENCOUNTER 2025-08-18 06:38 | Outpatient (CLI) | payer OTHER, SELFPAY ==
[2025-08-18 08:16] LABS: Hematocrit 37.1 % (36-47); Hemoglobin 12.10 g/dL (11.27-16.99); Mean Corpuscular HGB Conc 32.6 g/dL (30-55); Mean Corpuscular Hemoglobin 29.8 pg (27-33); Mean Corpuscular Volume 91.4 fl (85-98); Nucleated Red Blood Cells % 0 %; Platelet Count 316 10^3/cmm (157-399); Red Blood Count 4.06 10^6/uL (3.85-5.65); White Blood Count 5.66 10^3/uL (3.29-11.43)
== END 2025-08-18 06:39 | disposition home or self-care (01) ==
PROVIDERS: PCP Student in an Organized Health Care Education/Training Program; Visit Provider Student in an Organized Health Care Education/Training Program
DX: R51.9 Headache, unspecified (principal); G47.00 Insomnia, unspecified; R42 Dizziness and giddiness; N95.1 Menopausal and female climacteric states; G89.29 Other chronic pain; M79.7 Fibromyalgia; R20.2 Paresthesia of skin; M25.50 Pain in unspecified joint; L40.9 Psoriasis, unspecified; M35.3 Polymyalgia rheumatica
CPT/HCPCS: 36415; 82670; 84144; 84270; 84402; 84403; 85025; 85651; 86038; 86140